=== PATIENT | female | born 1945 | race Caucasian/White ===

== ENCOUNTER 2017-09-15 22:48 | Observation (INO) ==
--- NOTE | 2017-09-15 23:28 | DR.SOBA ---
HPI - Time Seen Time seen: 23:05 - Primary Care Physician Primary Care Physician: NFD - Complaints Chief Complaint Doctors Comments: Patient admits to getting ready for bed and started having dyspnea. She also had chest pain but took a NTG and pain went away. She has a history of COPD. Denies fever, vomiting or diarrhea. Denies cigarettes. Chief Complaint:: EMS RESPONDED TO A CALL FOR DIFFICULTY BREATHING. UPON EMS ARRIVAL PT SATS 90% WITH HOME O2 INTACT, BREATH SOUNDS DIMINISHED. EMS ADMINISTERED NEB TREATMENT SATS UP TO 100%. PATIENT STATES, "I WAS GETTING READY FOR BED AND I GOT SHORT OF BREATH, THEN MY CHEST STARTED HURTING. I DIDN' T HURT ANYWHERE ELSE. I TOOK A NITROGLYCERIN AND MY CHEST PAIN WAS GONE BUT I WAS STILL SHORT OF BREATH. I WEAR HOME O2 BUT IT WASN'T HELPING." Self Treatment fo Chief Complaint: NTG, HOME O2 - Source History Provided: Patient, EMS - Mode of Arrival Mode of Arrival: EMS - Timing Onset of Chief Complaint: 09/15/17 PMH - PMH Past Medical History: Yes Past Medical History: Arthritis, Asthma, COPD, Coronary Artery Disease, GERD, Hypertension, [place] Past Medical History Comment: SLEEP APNEA. OSTEOARTHRITIS. RESTLESS LEG SYNDROME Past Surgical History: Yes Surgical History: Angioplasty/Stents, Hysterectomy, Ortho Surgery, Other - Family History History of Family Medical Conditions: Yes Family Medical History: Cancer, Coronary Artery Disease - Social History Type of Tobacco Use: None Alcohol Use: None Do you use any recreational Drugs:: No Lives With: Family Lives Where: Home - infectious screening Have you traveled outside the country in the last 6 months?: No Isolation: Standard ROS - Review of Systems Constitutional: negative: Diaphoresis Eyes: No Symptoms Reported ENTM: No Symptoms Reported Respiratoy: No Symptoms Reported Cardiovascular: No Symptoms Reported Gastrointestinal/Abdominal: No Symptoms Reported Genitourinary: No Symptoms Reported Neurological: No Symptoms Reported Musculoskeletal: No Symptoms Reported Integumentary: No Symptoms Reported Hematologic/Lymphatic: No Symptoms Reported Endocrine: No Symptoms Reported Psychiatric: No Symptoms Reported All Other Systems: Reviewed and Negative PE - General Limitations: No Limitations General Appearance: Alert, In No Apparent Distress - Head Head Exam: Normal Inspection, Atraumatic - Eyes Eye exam: Normal Appearance, PERRL, EOMI - ENT ENT Exam: Normal Exam - Neck Neck Exam: Normal Inspection, Full ROM - Chest Chest Inspection: Normal Inspection - Respiratory Respiratory Exam: Normal Lung Sounds Bilat Respiratory Exam: Bilateral Clear to Auscultation - Cardiovascular Cardiovascular Exam: Regular Rate, Normal Rhythm - Abdominal Exam Abdominal Exam: Normal Inspection, Normal Bowel Sounds Abdominal Tenderness: negative: RUQ, RLQ, LUQ, LLQ, Epigastrium, Suprapubic, Diffuse, Mild, Moderate, Severe, Other - Extremities Extremities Exam: Normal Inspection, Full ROM - Back Back Exam: Normal Inspection, Full ROM - Neurologic Neurological Exam: Alert, Oriented X3, CN II-XII Intact - Psychiatric Psychiatric Exam: Normal Affect, Normal Mood - Skin Skin Exam: Warm, Dry, Intact - Vital Signs Vitals: Temperature 97.5 F Pulse Rate 78 Respiratory Rate 18 Blood Pressure 190/91 O2 Sat by Pulse Oximetry 98 Course - Reevaluation 1st: Improved - Consultation Called: 01:50 (Dr Marquez agreed to admit for further management) ROR - Labs Reviewed Laboratory Results Reviewed?: Yes (D Dimer 538; Cardiacs negative) Result Diagrams: 09/15/17 23:07 09/15/17 23:07 - XRAY XRAY Interpreted by: Radiologist (Chest: The cardiopericardial silhouette is stably enlarged with mild pulmonary edema and bibasilar airspace opacities. No effusion or pneumothorax. The lungs are well inflated. Pulmonary vascularity is normal. Imaged osseous structures are intact. Soft tissues are unremarkable. Impression: Mild pulmonary edema in the setting of cardiomegaly with bibasilar airspace opacities, atelectasis vs infection. Correlate with serology and clinically for CHF exacerbation and pneumonia) - EKG Rate: 73 [place]: Normal Rhythm: NSR Block: None Hypertrophy: None ST: Normal - Labs Reviewed Laboratory: WBC 5.0 X10^3/uL (3.6-10.0) 09/15/17 23:07 RBC 5.14 X10^6/uL (3.5-5.4) 09/15/17 23:07 Hgb 14.1 g/dL (12.0-16.0) 09/15/17 23:07 Hct 42.2 % (36.0-47.0) 09/15/17 23:07 MCV 82.1 fL (80.0-100.0) 09/15/17 23:07 MCH 27.5 pg (27.0-34.0) 09/15/17 23:07 MCHC 33.4 g/dL (33.0-35.0) 09/15/17 23:07 RDW 15.1 % (11.6-16.5) 09/15/17 23:07 Plt Count 178 X10^3/uL (150.0-450.0) 09/15/17 23:07 MPV 8.5 fL (7.4-11.0) 09/15/17 23:07 Neut % (Auto) 56.4 % (42.0-75.0) 09/15/17 23:07 Lymph % (Auto) 32.6 % (21.0-51.0) 09/15/17 23:07 [place] % (Auto) 10.2 % (0.0-13.0) 09/15/17 23:07 Eos % (Auto) 0.0 % (0.9-2.9) L 09/15/17 23:07 Baso % (Auto) 0.8 % (0.2-1.0) 09/15/17 23:07 Neut # (Auto) 2.8 x10^3/uL (2.2-4.8) 09/15/17 23:07 Lymph # (Auto) 1.6 X10^3/uL (1.3-2.9) 09/15/17 23:07 [place] # (Auto) 0.5 x10^3/uL (0.3-0.8) 09/15/17 23:07 Eos # (Auto) 0.0 x10^3/uL (0.0-0.2) 09/15/17 23:07 Baso # (Auto) 0.0 X10^3/uL (0.0-0.1) 09/15/17 23:07 Absolute Nucleated RBC 0.2 /100WBC 09/15/17 23:07 INR Target Range - 09/15/17 23:07 INR 0.97 (0.8-1.3) 09/15/17 23:07 APTT 27.0 SECONDS (22.9-36.5) 09/15/17 23:07 PTT Comment - 09/15/17 23:07 D-Dimer 538 ng/mL (0-400) H* 09/15/17 23:07 Sodium 142 mmol/L (136-145) 09/15/17 23:07 Corrected Sodium 143 mmol/L (136-145) 09/15/17 23:07 Potassium 3.6 mmol/L (3.5-5.1) 09/15/17 23:07 Chloride 105 mmol/L (98-107) 09/15/17 23:07 Carbon Dioxide 31.6 mmol/L (21-32) 09/15/17 23:07 BUN 9 mg/dL (7-18) 09/15/17 23:07 Creatinine 0.91 mg/dL (0.55-1.02) 09/15/17 23:07 Est GFR (MDRD) Af Amer > 60 (>60) 09/15/17 23:07 Est GFR (MDRD) Non-Af > 60 (>60) 09/15/17 23:07 Glucose 145 mg/dL (65-99) H 09/15/17 23:07 Calcium 9.4 mg/dL (8.5-10.1) 09/15/17 23:07 Corrected Calcium TNP 09/15/17 23:07 Magnesium 1.9 mg/dL (1.7-2.9) 09/15/17 23:07 Total Bilirubin 0.40 mg/dL (0.2-1.0) 09/15/17 23:07 AST 18 Units/L (15-37) 09/15/17 23:07 ALT 23 Units/L (12-78) 09/15/17 23:07 Alkaline Phosphatase 60 Units/L (46-116) 09/15/17 23:07 Creatine Kinase 116 Units/L (26-192) 09/15/17 23:07 CK-MB (CK-2) 1.0 ng/mL (0-4.0) 09/15/17 23:07 CK/CKMB % Calc 0.9 % (<4) 09/15/17 23:07 Troponin I < 0.02 ng/mL (0-1.5) 09/15/17 23:07 B-Natriuretic Peptide 95.5 pg/mL (0-79) H 09/15/17 23:07 Total Protein 6.8 g/dL (6.4-8.2) 09/15/17 23:07 Albumin 3.4 g/dL (3.4-5.0) 09/15/17 23:07 Globulin 3.4 g/dL (2.5-4.5) 09/15/17 23:07 Albumin/Globulin Ratio 1.0 Ratio (1.1-2.1) L 09/15/17 23:07 - Diagnosis Discharge Problem: D-dimer, elevated Dyspnea Qualifiers: Dyspnea type: shortness of breath Qualified Code(s): R06.02 - Shortness of breath; R06.00 - Dyspnea, unspecified; R06.01 - Orthopnea CHF (congestive heart failure) Qualifiers: Heart failure type: unspecified Heart failure chronicity: chronic Qualified Code(s): I50.9 - Heart failure, unspecified - Discharge Plan Disposition: ADMITTED INPATIENT Condition: Stable - Follow ups/Referrals Follow ups/Referrals: NFD,None [Primary Care Provider] - 3 days - Instructions
[2017-09-15 23:31] LABS: BASOPHILS % (AUTO) 0.8 % (0.2-1.0); HEMATOCRIT 42.2 % (36.0-47.0); HEMOGLOBIN 14.1 g/dL (12.0-16.0); LYMPHOCYTES # (AUTO) 1.6 X10^3/uL (1.3-2.9); LYMPHOCYTES % (AUTO) 32.6 % (21.0-51.0); MEAN CORPUSCULAR HEMOGLOBIN 27.5 pg (27.0-34.0); MEAN CORPUSCULAR HGB CONC 33.4 g/dL (33.0-35.0); MEAN CORPUSCULAR VOLUME 82.1 fL (80.0-100.0); MEAN PLATELET VOLUME 8.5 fL (7.4-11.0); MONOCYTES # (AUTO) 0.5 x10^3/uL (0.3-0.8); MONOCYTES % (AUTO) 10.2 % (0.0-13.0); NEUTROPHILS # (AUTO) 2.8 x10^3/uL (2.2-4.8); NEUTROPHILS % (AUTO) 56.4 % (42.0-75.0); PLATELET COUNT 178 X10^3/uL (150.0-450.0); RED BLOOD COUNT 5.14 X10^6/uL (3.5-5.4); RED CELL DISTRIBUTION WIDTH 15.1 % (11.6-16.5)
--- NOTE | 2017-09-15 23:35 | RAD ---
CHEST RADIOGRAPHS PA AND LATERAL VIEWS CLINICAL HISTORY: 72-year-old female with shortness of breath. History of COPD and asthma. COMPARISON: Chest radiographs 07/22/2014. FINDINGS: The cardiopericardial silhouette is stably enlarged with mild pulmonary edema and bibasila r airspace opacities. No effusion or pneumothorax. The lungs are well inflated. Pulmonary vascularity is normal. Imaged osseous structures are intact. Soft tissues are unremarkable. IMPRESSION: Mild pulmonary edema in the setting of cardiomegaly with bibasilar airspace opacities, atelectasis ve rsus infection. Correlate with serology and clinically for CHF exacerbation and pneumonia. Reported By:
[2017-09-15 23:42] LABS: B-TYPE NATRIURETIC PEPTIDE 95.5 pg/mL (0-79)
[2017-09-15 23:46] LABS: BLOOD UREA NITROGEN 9 mg/dL (7-18); CALCIUM 9.4 mg/dL (8.5-10.1); CARBON DIOXIDE 31.6 mmol/L (21-32); CHLORIDE 105 mmol/L (98-107); COR NA(FOR HYPERGLY) 143 mmol/L (136-145); CREATININE 0.91 mg/dL (0.55-1.02); SODIUM 142 mmol/L (136-145); TROPONIN I < 0.02 ng/mL (0-1.5); eGFR NON BLACK RACES > 60 (>60)
[2017-09-15 23:49] LABS: ALANINE AMINOTRANSFERASE 23 Units/L (12-78); ALBUMIN 3.4 g/dL (3.4-5.0); ALKALINE PHOSPHATASE 60 Units/L (46-116); ASPARTATE AMINO TRANSFERASE 18 Units/L (15-37); CKMB % 0.9 % (<4); CREATINE KINASE 116 Units/L (26-192); MAGNESIUM 1.9 mg/dL (1.7-2.9); TOTAL PROTEIN 6.8 g/dL (6.4-8.2)
[2017-09-16] MEDS ORDERED: NS 100 ML IV 100 ML IV ONE (00:09)
[2017-09-16] MEDS ORDERED: MORPHINE SULFATE INJ 4 MG IVP PRN (02:41)
[2017-09-16] MEDS: NS 1000 ML 1,000 ML IV SCH ×2 (04:08→17:32)
[2017-09-16] MEDS: LASIX IVP SCH ×2 (04:08→09:30)
[2017-09-16 06:47] LABS: BASOPHILS % (AUTO) 0.8 % (0.2-1.0); HEMATOCRIT 40.3 % (36.0-47.0); HEMOGLOBIN 13.4 g/dL (12.0-16.0); LYMPHOCYTES # (AUTO) 1.2 X10^3/uL (1.3-2.9); MEAN CORPUSCULAR HEMOGLOBIN 27.4 pg (27.0-34.0); MEAN CORPUSCULAR HGB CONC 33.2 g/dL (33.0-35.0); MEAN CORPUSCULAR VOLUME 82.4 fL (80.0-100.0); MEAN PLATELET VOLUME 8.5 fL (7.4-11.0); MONOCYTES # (AUTO) 0.5 x10^3/uL (0.3-0.8); MONOCYTES % (AUTO) 11.2 % (0.0-13.0); NEUTROPHILS # (AUTO) 2.7 x10^3/uL (2.2-4.8); PLATELET COUNT 173 X10^3/uL (150.0-450.0); RED BLOOD COUNT 4.89 X10^6/uL (3.5-5.4); RED CELL DISTRIBUTION WIDTH 15.3 % (11.6-16.5); WHITE BLOOD COUNT 4.4 X10^3/uL (3.6-10.0)
[2017-09-16 06:47] LABS: BILIRUBIN,URINE NEGATIVE (NEGATIVE); BLOOD/HEMOGLOBIN,URINE NEGATIVE (NEGATIVE); GLUCOSE, URINE NEGATIVE (NEGATIVE); KETONES,URINE NEGATIVE (NEGATIVE); LEUKOCYTE ESTERASE ,URINE 2+ (NEGATIVE); NITRITES,URINE NEGATIVE (NEGATIVE); PH,URINE 6.5 (5.0 - 8.0); PROTEIN,URINE NEGATIVE (NEGATIVE); UROBILINOGEN,URINE NORMAL (NORMAL)
[2017-09-16 06:58] LABS: APPEARANCE,URINE CLEAR (CLEAR); COLOR,URINE YELLOW (YELLOW); RBC,URINE 0-2 /HPF (NONE SEEN)
[2017-09-16 06:59] LABS: BACTERIA,URINE TRACE /HPF (NEGATIVE); SQUAMOUS EPITHELIAL CELL,UR FEW /HPF (NEGATIVE)
[2017-09-16 07:33] LABS: CREATINE KINASE 113 Units/L (26-192); CREATINE KINASE MB 1.1 ng/mL (0-4.0); TROPONIN I < 0.02 ng/mL (0-1.5)
[2017-09-16] MEDS ORDERED: ZESTRIL TAB 10 MG PO SCH (09:00)
[2017-09-16] MEDS ORDERED: NITROSTAT SL PRN (09:36)
[2017-09-16] MEDS ORDERED: CITALOPRAM 40 MG PO SCH (09:45)
[2017-09-16] MEDS ORDERED: ALENDRONATE 70 MG PO SCH (09:45)
[2017-09-16] MEDS ORDERED: [UNRECOGNIZED DRUG - OTHER] PO SCH (09:45)
[2017-09-16] MEDS ORDERED: ASPIRIN PO SCH (09:45)
[2017-09-16] MEDS ORDERED: RANOLAZINE 1000 MG PO SCH (09:45)
[2017-09-16] MEDS ORDERED: LASIX PO SCH (10:00)
[2017-09-16] MEDS ORDERED: REQUIP PO PRN (10:01)
[2017-09-16] MEDS: ECOTRIN TAB 325 MG PO SCH (11:30)
[2017-09-16] MEDS: PROTONIX TAB 40 MG PO SCH ×2 (11:30→16:46)
[2017-09-16] MEDS: APRESOLINE TAB 25 MG PO SCH ×3 (11:30→21:09)
[2017-09-16] MEDS: COREG TAB 25 MG PO SCH ×2 (11:30→21:07)
[2017-09-16] MEDS: CELEXA PO SCH (11:30)
[2017-09-16] MEDS: COZAAR PO SCH (11:30)
[2017-09-16] MEDS: COLACE CAP 100 MG PO SCH ×2 (11:30→21:07)
[2017-09-16] MEDS: LYRICA CAP 100 MG PO SCH ×2 (11:30→21:06)
[2017-09-16] MEDS: PLAQUENIL PO SCH ×2 (11:30→21:07)
[2017-09-16 12:22] LABS: CKMB % 1.3 % (<4); CREATINE KINASE 123 Units/L (26-192); CREATINE KINASE MB 1.6 ng/mL (0-4.0); TROPONIN I < 0.02 ng/mL (0-1.5)
[2017-09-16] MEDS: LASIX PO SCH (12:54)
[2017-09-16] MEDS: RANEXA PO SCH ×2 (12:55→21:07)
[2017-09-16] MEDS: LIPITOR TAB 20 MG PO SCH (12:55)
[2017-09-16] MEDS: NORCO 5/325 MG TAB PO PRN ×2 (12:58→21:10)
[2017-09-16 15:43] VITALS: BMI 38.4
[2017-09-16] MEDS ORDERED: ROPINIROLE 0.5 MG PO SCH (21:00)
[2017-09-17] MEDS: APRESOLINE TAB 25 MG PO SCH (05:10)
[2017-09-17] MEDS: NS 1000 ML 1,000 ML IV SCH (05:10)
[2017-09-17] MEDS: PROTONIX TAB 40 MG PO SCH ×2 (05:46→11:56)
[2017-09-17] MEDS: COREG TAB 25 MG PO SCH (08:45)
[2017-09-17] MEDS: PLAQUENIL PO SCH (08:46)
[2017-09-17] MEDS: CELEXA PO SCH (08:46)
[2017-09-17] MEDS: LASIX PO SCH (08:46)
[2017-09-17] MEDS: LYRICA CAP 100 MG PO SCH (08:46)
[2017-09-17] MEDS: ECOTRIN TAB 325 MG PO SCH (08:47)
[2017-09-17] MEDS: COLACE CAP 100 MG PO SCH (08:47)
[2017-09-17] MEDS: LIPITOR TAB 20 MG PO SCH (08:47)
[2017-09-17] MEDS: RANEXA PO SCH (08:47)
[2017-09-17] MEDS: COZAAR PO SCH (08:48)
[2017-09-17] MEDS: NORCO 5/325 MG TAB PO PRN (11:57)
[2017-09-17 12:27] VITALS: BP 112/59
== END 2017-09-17 14:00 | disposition home or self-care (01) ==
LOC: MED/SURG 22:50 → ER 22:50 → MED/SURG 09-16 03:42
PROVIDERS: ADMIT Obstetrics & Gynecology Obstetrics; ATTEND Obstetrics & Gynecology Obstetrics
DX: M13.89 Other specified arthritis, multiple sites; I10 Essential (primary) hypertension; G25.81 Restless legs syndrome; K21.9 Gastro-esophageal reflux disease without esophagitis; I50.9 Heart failure, unspecified; R06.02 Shortness of breath; J44.9 Chronic obstructive pulmonary disease, unspecified; R07.89 Other chest pain; I25.10 Atherosclerotic heart disease of native coronary artery without angina pectoris; G47.33 Obstructive sleep apnea (adult) (pediatric); R26.89 Other abnormalities of gait and mobility; I21.29 ST elevation (STEMI) myocardial infarction involving other sites; J45.998 Other asthma
CPT/HCPCS: 36415; 71020; 71046; 80053; 81001; 82550; 82553; 83735; 83880; 84484; 85025; 85378; 85610; 85730; 93005; 93010; 94760; 96365; 97162; 97167; 99284; A4216; A4222; G0378; J1940; J2270; J7030; J7050

== ENCOUNTER 2017-10-26 03:13 | Observation (INO) ==
[2017-10-26] MEDS ORDERED: LASIX IVP ONE ×2 (03:34→03:37)
[2017-10-26] MEDS ORDERED: CATAPRES TAB 0.2 MG ONE (03:35)
[2017-10-26] MEDS ORDERED: ASPIRIN PO ONE (03:36)
[2017-10-26] MEDS ORDERED: CATAPRES TAB 0.2 MG PO ONE (03:37)
[2017-10-26] MEDS ORDERED: ASPIRIN 81 MG CHEWTAB ONE (03:38)
[2017-10-26] MEDS ORDERED: NITRO-BID OINT 2% UD (E.R. USE ONLY) TD ONE (03:38)
--- NOTE | 2017-10-26 03:42 | DR.CP ---
HPI - Time Seen Time seen: 03:39 - PCP Primary Care Physician: ERUM - Complaint Chief Complaint Doctor Comments: Patient is complaining of xiphoid chest pain that started about five hours ago with pressure in the center of her chest that is non-radiating with SOB, nausea and swelling of her legs and feet. Patient states she has taken nitroglycerin x3 at home without improvement. States she has COPD and is on two liters of oxygen at home. She has a history of Congestive heart Failure and states she sees Dr. Miller in [place]. states her pain is 10 of 10. She denies any recent trauma.. state she has not had an aspirin today. She is a patient of Dr. Danielson. Chief Complaint:: PATIENT BROUGHT IN BY EMS BY STRETCHER C/O CHEST PAIN PRESSURE THAT STARTED ABOUT 2200 LASTNIGHT. PATIENT ALERT AND ORIENTED. " Self Treatment fo Chief Complaint: 3 NITRO STARTING AT 2230 AND LAST ONE AT 2300 - Reviewed Nurses Notes Review: Yes - Source History Provided: Patient, EMS - Mode of Arrival Mode of Arrival: Stretcher - Timing Onset of Chief Complaint: 10/25/17 Came on: Gradually Pain: Present Now - Duration Duration: Constant How lon Duration: Hours - Location Location of Chest Pain: Chest Chest Pain Radiation Location: None - Context Onset: At rest Cardiac Risk Factors: HTN PE Risk Factors: None History of: Similar pain in the past Prehospital Care: Oxygen, IV, SL Nitro - Quality Quality: Pressure like - Severity Severity: Moderate - Modifying Factors Worsens: Exertion Impoves: Nothing - Associated Signs and Symptoms Associated Signs and Symptoms: Shortness of Breath, Nausea/Vomiting PMH - PMH Past Medical History: Yes Past Medical History: Arthritis, Asthma, COPD, Coronary Artery Disease, GERD, Hypertension, [place] Past Surgical History: Yes Surgical History: Hysterectomy, Ortho Surgery - Family History History of Family Medical Conditions: Yes Family Medical History: Cancer, Coronary Artery Disease, Hypertension - Social History Alcohol Use: None Do you use any recreational Drugs:: No - infectious screening Have you traveled outside the country in the last 6 months?: No ROS - Review of Systems Constitutional: No Symptoms Reported Eyes: No Symptoms Reported. negative: See HPI, Eye Pain, Blurred Vision, Tearing, Discharge, Photophobia, Diplopia, Other ENTM: No Symptoms Reported Respiratoy: No Symptoms Reported, Short of Breath, Wheezing Cardiovascular: No Symptoms Reported, Chest Pain, Edema Gastrointestinal/Abdominal: No Symptoms Reported, Nausea, Vomiting Genitourinary: No Symptoms Reported. negative: See HPI, Discharge, Dysuria, Frequency, Hematuria, Pain, Bleeding, Other Neurological: No Symptoms Reported Musculoskeletal: No Symptoms Reported Integumentary: No Symptoms Reported. negative: See HPI, Change in Color, Change in Hair/Nails, Dryness, Lesions, Lumps, Rash, Itching, Wound, Bruises, Juandice, Other Hematologic/Lymphatic: No Symptoms Reported. negative: See HPI, Anemia, Blood Clots, Easy Bleeding, Easy Bruising, Swollen Glands, Lymphadenopathy, Other Endocrine: No Symptoms Reported Psychiatric: No Symptoms Reported. negative: See HPI, Anxiety, Depression, Hallucinations, Excessive crying, Suicidal, Other PE - General Limitations: No Limitations General Appearance: Alert, In Distress (moderate) - Head Head Exam: Normal Inspection, Atraumatic, Normocephalic - Eyes Eye exam: Normal Appearance, PERRL, EOMI. negative: Scleral Icterus, Conjunctival Injection, Nystagmus, Miosis, Mydrasis, Periorbital Swelling, Periorbital Tenderness, Other - ENT ENT Exam: Normal Exam, Normal Oropharynx, Normal External Ear Exam, Mucous Membranes Moist, TM's Normal Bilaterally - Chest Chest Inspection: Normal Inspection, Symmetric Chest Wall Rise - Respiratory Respiratory Exam: Normal Lung Sounds Bilat, Prolonged Expiratory Phase Respiratory Exam: Bilateral Wheezing, Bilateral Rales - Cardiovascular Cardiovascular Exam: Regular Rate, Normal Rhythm, Normal Heart Sounds, Systolic Murmur Pulse: Normal Edema: 2, Lower, Extremity - Abdominal Exam Abdominal Exam: Normal Inspection, Normal Bowel Sounds, Soft. negative: Distention, Tenderness, Guarding, Rebound, Rigidity, Dimnished Bowel Sounds, Hyperactive Bowel Sounds, Hypoactive Bowel Sounds, Organomegaly, Trauma, Incision, Ascites, Mass, Bruit, Pulsatile Mass, Hernia, Other Abdominal Tenderness: negative: RUQ, RLQ, LUQ, LLQ, Epigastrium, Suprapubic, Diffuse, Mild, Moderate, Severe, Other - Extremities Extremities Exam: Normal Inspection, Full ROM, Normal Capillary Refill, Edema. negative: Tenderness, Joint Swelling, Calf Tenderness, Other - Back Back Exam: Normal Inspection, Full ROM - Neurologic Neurological Exam: Alert, Oriented X3, CN II-XII Intact, Reflexes Normal. negative: Normal Gait (gait not tested) - Psychiatric Psychiatric Exam: Normal Affect, Normal Mood - Skin Skin Exam: Warm, Dry, Intact, Normal Color - Vitals Vitals: Temperature 98.2 F Pulse Rate [Left Brachial] 61 Pulse Rate 62 Respiratory Rate 20 Blood Pressure [Left Arm] 134/61 Blood Pressure 226/91 O2 Sat by Pulse Oximetry 95 Course - Reevaluation 1st: Improved - Consultation Called: 05:21 Call Returned: 05:21 (Dr. Hewitt to admit) - Education/Counseling Education/Counseling: Patient, Family Educated On: Treatment, Diagnosis, Needs for Follow Up ROR - Labs Reviewed Laboratory Results Reviewed?: Yes (All labs and x-ray results reviewed and discussed with patient) Result Diagrams: 10/26/17 03:30 10/26/17 03:30 - XRAY XRAY Interpreted by: Radiologist (CXR: Stable chest negative for pathology) - Labs Reviewed Laboratory: WBC 5.5 X10^3/uL (3.6-10.0) 10/26/17 03:30 RBC 4.94 X10^6/uL (3.5-5.4) 10/26/17 03:30 Hgb 13.8 g/dL (12.0-16.0) 10/26/17 03:30 Hct 41.0 % (36.0-47.0) 10/26/17 03:30 MCV 83.1 fL (80.0-100.0) 10/26/17 03:30 MCH 27.9 pg (27.0-34.0) 10/26/17 03:30 MCHC 33.6 g/dL (33.0-35.0) 10/26/17 03:30 RDW 15.3 % (11.6-16.5) 10/26/17 03:30 Plt Count 165 X10^3/uL (150.0-450.0) 10/26/17 03:30 MPV 8.2 fL (7.4-11.0) 10/26/17 03:30 Neut % (Auto) 68.5 % (42.0-75.0) 10/26/17 03:30 Lymph % (Auto) 22.6 % (21.0-51.0) 10/26/17 03:30 [place] % (Auto) 8.3 % (0.0-13.0) 10/26/17 03:30 Eos % (Auto) 0.0 % (0.9-2.9) L 10/26/17 03:30 Baso % (Auto) 0.6 % (0.2-1.0) 10/26/17 03:30 Neut # (Auto) 3.8 x10^3/uL (2.2-4.8) 10/26/17 03:30 Lymph # (Auto) 1.2 X10^3/uL (1.3-2.9) L 10/26/17 03:30 [place] # (Auto) 0.5 x10^3/uL (0.3-0.8) 10/26/17 03:30 Eos # (Auto) 0.0 x10^3/uL (0.0-0.2) 10/26/17 03:30 Baso # (Auto) 0.0 X10^3/uL (0.0-0.1) 10/26/17 03:30 Absolute Nucleated RBC 0.1 /100WBC 10/26/17 03:30 INR Target Range - 10/26/17 03:30 INR 0.97 (0.8-1.3) 10/26/17 03:30 APTT 28.4 SECONDS (22.9-36.5) 10/26/17 03:30 PTT Comment - 10/26/17 03:30 D-Dimer 215 ng/mL (0-400) 10/26/17 03:30 Sodium 142 mmol/L (136-145) 10/26/17 03:30 Corrected Sodium 143 mmol/L (136-145) 10/26/17 03:30 Potassium 3.8 mmol/L (3.5-5.1) 10/26/17 03:30 Chloride 104 mmol/L (98-107) 10/26/17 03:30 Carbon Dioxide 32.4 mmol/L (21-32) H 10/26/17 03:30 BUN 18 mg/dL (7-18) 10/26/17 03:30 Creatinine 0.91 mg/dL (0.55-1.02) 10/26/17 03:30 Est GFR (MDRD) Af Amer > 60 (>60) 10/26/17 03:30 Est GFR (MDRD) Non-Af > 60 (>60) 10/26/17 03:30 Glucose 136 mg/dL (65-99) H 10/26/17 03:30 Calcium 9.1 mg/dL (8.5-10.1) 10/26/17 03:30 Corrected Calcium TNP 10/26/17 03:30 Magnesium 1.9 mg/dL (1.7-2.9) 10/26/17 03:30 Total Bilirubin 0.30 mg/dL (0.2-1.0) 10/26/17 03:30 AST 18 Units/L (15-37) 10/26/17 03:30 ALT 25 Units/L (12-78) 10/26/17 03:30 Alkaline Phosphatase 59 Units/L (46-116) 10/26/17 03:30 Creatine Kinase 116 Units/L (26-192) 10/26/17 03:30 CK-MB (CK-2) 1.6 ng/mL (0-4.0) 10/26/17 03:30 CK/CKMB % Calc 1.4 % (<4) 10/26/17 03:30 Troponin I < 0.02 ng/mL (0-1.5) 10/26/17 03:30 B-Natriuretic Peptide 54.8 pg/mL (0-79) 10/26/17 03:30 Total Protein 7.0 g/dL (6.4-8.2) 10/26/17 03:30 Albumin 3.6 g/dL (3.4-5.0) 10/26/17 03:30 Globulin 3.4 g/dL (2.5-4.5) 10/26/17 03:30 Albumin/Globulin Ratio 1.1 Ratio (1.1-2.1) 10/26/17 03:30 - Diagnosis Discharge Problem: Chest pain, rule out acute myocardial infarction, COPD exacerbation, CHF ( congestive heart failure), Accelerated hypertension, Hyperglycemia - Discharge Plan Disposition: ADMITTED INPATIENT Condition: Stable - Follow ups/Referrals Follow ups/Referrals: JACKSON DANIELSON [Primary Care Provider] - 3 days - Instructions
[2017-10-26] MEDS: ASPIRIN 81 MG CHEWTAB PO SCH ×2 (03:47→08:21)
[2017-10-26] MEDS ORDERED: NITRO-BID OINT 2% Multi-Dose tube ONE (03:48)
[2017-10-26 04:00] LABS: BASOPHILS % (AUTO) 0.6 % (0.2-1.0); HEMOGLOBIN 13.8 g/dL (12.0-16.0); LYMPHOCYTES # (AUTO) 1.2 X10^3/uL (1.3-2.9); LYMPHOCYTES % (AUTO) 22.6 % (21.0-51.0); MEAN CORPUSCULAR HEMOGLOBIN 27.9 pg (27.0-34.0); MEAN CORPUSCULAR HGB CONC 33.6 g/dL (33.0-35.0); MEAN CORPUSCULAR VOLUME 83.1 fL (80.0-100.0); MEAN PLATELET VOLUME 8.2 fL (7.4-11.0); MONOCYTES # (AUTO) 0.5 x10^3/uL (0.3-0.8); MONOCYTES % (AUTO) 8.3 % (0.0-13.0); NEUTROPHILS # (AUTO) 3.8 x10^3/uL (2.2-4.8); NEUTROPHILS % (AUTO) 68.5 % (42.0-75.0); PLATELET COUNT 165 X10^3/uL (150.0-450.0); RED BLOOD COUNT 4.94 X10^6/uL (3.5-5.4); RED CELL DISTRIBUTION WIDTH 15.3 % (11.6-16.5); WHITE BLOOD COUNT 5.5 X10^3/uL (3.6-10.0)
--- NOTE | 2017-10-26 04:15 | RAD ---
Chest single view Indication: Chest pain Comparison September 29, 2017 Findings: Lung volumes remain shallow. There is no focal infiltrate, effusion or pneumothorax. The ce ntral venous structures appear similar to prior study. The skeleton is unchanged. Impression: Stable chest negative for active pathology Reported By:
[2017-10-26 04:16] LABS: B-TYPE NATRIURETIC PEPTIDE 54.8 pg/mL (0-79)
[2017-10-26 04:18] LABS: BLOOD UREA NITROGEN 18 mg/dL (7-18); CALCIUM 9.1 mg/dL (8.5-10.1); CARBON DIOXIDE 32.4 mmol/L (21-32); CHLORIDE 104 mmol/L (98-107); COR NA(FOR HYPERGLY) 143 mmol/L (136-145); CREATININE 0.91 mg/dL (0.55-1.02); SODIUM 142 mmol/L (136-145); TROPONIN I < 0.02 ng/mL (0-1.5); eGFR NON BLACK RACES > 60 (>60)
[2017-10-26 04:33] LABS: ALANINE AMINOTRANSFERASE 25 Units/L (12-78); ALBUMIN 3.6 g/dL (3.4-5.0); ALKALINE PHOSPHATASE 59 Units/L (46-116); ASPARTATE AMINO TRANSFERASE 18 Units/L (15-37); CKMB % 1.4 % (<4); CREATINE KINASE 116 Units/L (26-192); CREATINE KINASE MB 1.6 ng/mL (0-4.0); MAGNESIUM 1.9 mg/dL (1.7-2.9)
[2017-10-26] MEDS ORDERED: MORPHINE SULFATE INJ 2 MG INJ IVP ONE (05:14)
[2017-10-26] MEDS ORDERED: MORPHINE SULFATE INJ 2 MG INJ ONE (05:33)
[2017-10-26 07:36] VITALS: BMI 37.8
[2017-10-26] MEDS: COZAAR PO SCH (08:21)
[2017-10-26] MEDS: LIPITOR TAB 20 MG PO SCH (08:21)
[2017-10-26] MEDS: LASIX PO SCH (08:21)
[2017-10-26] MEDS ORDERED: [UNRECOGNIZED DRUG - OTHER] PO SCH (09:00)
[2017-10-26] MEDS ORDERED: ASPIRIN PO SCH (09:00)
[2017-10-26] MEDS ORDERED: PATIENT'S HOME MEDICATION (Budesonide-Formoterol 2 PUFF) IN SCH (09:00)
[2017-10-26] MEDS ORDERED: PROTONIX INJ 40 MG VIAL IVP SCH (09:00)
[2017-10-26 10:02] LABS: CKMB % 1.3 % (<4); CREATINE KINASE 96 Units/L (26-192); CREATINE KINASE MB 1.2 ng/mL (0-4.0); TROPONIN I < 0.02 ng/mL (0-1.5)
[2017-10-26] MEDS: NORCO 5/325 MG TAB PO SCH ×2 (11:15→20:19)
[2017-10-26] MEDS ORDERED: NORVASC TAB 5 MG PO SCH (13:00)
[2017-10-26] MEDS: PULMICORT NEB TX 0.5 MG NEB SCH ×3 (16:10→20:32)
[2017-10-26 16:15] LABS: CKMB % 1.3 % (<4); CREATINE KINASE 103 Units/L (26-192); CREATINE KINASE MB 1.3 ng/mL (0-4.0); TROPONIN I < 0.02 ng/mL (0-1.5)
[2017-10-26] MEDS: VALIUM PO PRN (16:34)
[2017-10-26] MEDS: RANEXA PO SCH (16:34)
[2017-10-26] MEDS: APRESOLINE TAB 25 MG PO SCH ×2 (16:35→22:09)
[2017-10-26] MEDS: PROVENTIL NEB TX 0.083% 2.5MG/ 3ML NEB SCH ×2 (16:55→20:32)
[2017-10-26] MEDS: MILK OF MAGNESIA PO SCH (20:15)
[2017-10-26] MEDS: DESYREL PO SCH (20:17)
[2017-10-26] MEDS: ELAVIL PO SCH (20:17)
[2017-10-26] MEDS: LYRICA CAP 100 MG PO SCH (20:17)
[2017-10-26] MEDS: FLEXERIL TAB 10 MG PO SCH (20:17)
[2017-10-26] MEDS: COLACE CAP 100 MG PO SCH (20:17)
[2017-10-26] MEDS: PLAQUENIL PO SCH (20:18)
[2017-10-26] MEDS: COREG TAB 6.25 MG PO SCH (20:19)
--- NOTE | 2017-10-26 21:49 | DR.H&P ---
H&P - History & Physical for Day of: H&P Date: 10/26/17 - Chief Complaint Chief Complaint: chest pain - History of Present Illness History of Present Illness: is a 72 year old patient of who presented to the ER with complaints of xiphoid chest pain that started about five hours prior to arrival. She describes pain as pressure in the center of her chest that is non-radiating. Associated symptoms include: SOB, nausea and swelling of her legs and feet. Patient states she has taken nitroglycerin x3 at home without improvement. States she has COPD and is on two liters of oxygen at home. She reports a history of Congestive Heart Failure and states she sees Dr. Miller in [place]. Upon assessment, lungs noted with bilateral wheezing bilateral and rales throughout. On arrival, vitals were 98.2-62-20-100% -226/91. Labs were obtained. Cardiac enzymes and EKGs within normal limits. Patient received Morphine 2mg IV X 1, Lasix 40mg IVP X 1, and catapress 0.2mg po x 1. Patient was admitted for continued observation and placed on continuous quality assurance monitor chassis with supplemental oxygen. We planned to obtain serial cardiac enzymes and EKGs. - Past Medical History Past Medical History: Arthritis, Asthma, COPD, Coronary Artery Disease, GERD, Hypertension, [place] - Past Surgical History Surgical History: Hysterectomy, Ortho Surgery, Other - Family History Family Medical History: Cancer, Coronary Artery Disease, Hypertension - Social History Does patient currently use any type of tobacco product: No Have you used tobacco products in the last 12 months: No Type of Tobacco Use: Cigarettes How many years tobacco product used: 20 Alcohol Use: None Drug Use: None - Medications Home Medications: No Known Drug Allergies Allergy (Verified 09/29/17 19:30) CONTINUE taking the following medications amitriptyline 10 mg PO HS 10/26/17 [History] amlodipine 5 mg PO DAILY 10/26/17 [History] azelastine 1 spray INTRANASAL Q8H 10/26/17 [History] cyclobenzaprine 10 mg PO BID 10/26/17 [History] hydralazine 12.5 mg PO TID 10/26/17 [History] hydrocodone-acetaminophen 5 - 325 mg PO BID 10/26/17 [History] omeprazole 20 mg PO DAILY 10/26/17 [History] promethazine 25 mg PO Q6H 10/26/17 [History] ranolazine [Ranexa] 1,000 mg PO DAILY 10/26/17 [History] trazodone 50 mg PO HS 10/26/17 [History] - Physical Exam Vital Signs: Temperature 96.5 F Pulse Rate [Left Brachial] 53 Pulse Rate 56 Respiratory Rate 22 Blood Pressure [Left Arm] 131/62 Blood Pressure 226/91 O2 Sat by Pulse Oximetry 99 - Allergies Allergies/Adverse Reactions: Allergies Allergy/AdvReac Type Severity Reaction Status Date / Time No Known Drug Allergies Allergy Verified 09/29/17 19:30
[2017-10-27] MEDS: VALIUM PO PRN ×2 (00:19→22:52)
[2017-10-27] MEDS: APRESOLINE TAB 25 MG PO SCH ×4 (05:07→23:50)
[2017-10-27 05:17] LABS: BASOPHILS % (AUTO) 0.6 % (0.2-1.0); EOSINOPHILS % (AUTO) 0.3 % (0.9-2.9); HEMATOCRIT 36.9 % (36.0-47.0); HEMOGLOBIN 12.6 g/dL (12.0-16.0); LYMPHOCYTES # (AUTO) 1.3 X10^3/uL (1.3-2.9); LYMPHOCYTES % (AUTO) 26.3 % (21.0-51.0); MEAN CORPUSCULAR HEMOGLOBIN 28.2 pg (27.0-34.0); MEAN CORPUSCULAR HGB CONC 34.1 g/dL (33.0-35.0); MEAN CORPUSCULAR VOLUME 82.6 fL (80.0-100.0); MEAN PLATELET VOLUME 8.2 fL (7.4-11.0); MONOCYTES # (AUTO) 0.5 x10^3/uL (0.3-0.8); MONOCYTES % (AUTO) 10.6 % (0.0-13.0); NEUTROPHILS # (AUTO) 3.1 x10^3/uL (2.2-4.8); NEUTROPHILS % (AUTO) 62.2 % (42.0-75.0); PLATELET COUNT 171 X10^3/uL (150.0-450.0); RED BLOOD COUNT 4.47 X10^6/uL (3.5-5.4); RED CELL DISTRIBUTION WIDTH 15.5 % (11.6-16.5); WHITE BLOOD COUNT 4.9 X10^3/uL (3.6-10.0)
[2017-10-27 05:26] LABS: ALANINE AMINOTRANSFERASE 24 Units/L (12-78); ALBUMIN 3.2 g/dL (3.4-5.0); ALKALINE PHOSPHATASE 50 Units/L (46-116); ASPARTATE AMINO TRANSFERASE 18 Units/L (15-37); BLOOD UREA NITROGEN 21 mg/dL (7-18); CALCIUM 8.6 mg/dL (8.5-10.1); CARBON DIOXIDE 34.7 mmol/L (21-32); CHLORIDE 104 mmol/L (98-107); CHOLESTEROL 177 mg/dL (0-200); COR CA(FOR HYPOALB) 9.2 mg/dL (8.5-10.1); COR NA(FOR HYPERGLY) 145 mmol/L (136-145); HDL CHOLESTEROL 60 mg/dL (40-60); SODIUM 144 mmol/L (136-145); TOTAL PROTEIN 6.2 g/dL (6.4-8.2); TRIGLYCERIDES 75 mg/dL (0-150); eGFR NON BLACK RACES > 60 (>60)
[2017-10-27] MEDS: NORCO 5/325 MG TAB PO SCH ×2 (08:55→20:38)
[2017-10-27] MEDS: MILK OF MAGNESIA PO SCH ×2 (08:55→20:37)
[2017-10-27] MEDS: PROTONIX TAB 40 MG PO SCH (08:55)
[2017-10-27] MEDS: FLEXERIL TAB 10 MG PO SCH ×2 (08:56→20:46)
[2017-10-27] MEDS: LASIX PO SCH ×2 (08:56→11:27)
[2017-10-27] MEDS: LIPITOR TAB 20 MG PO SCH (08:57)
[2017-10-27] MEDS: PLAQUENIL PO SCH ×2 (08:57→20:46)
[2017-10-27] MEDS: RANEXA PO SCH (08:57)
[2017-10-27] MEDS: ASPIRIN 81 MG CHEWTAB PO SCH (08:57)
[2017-10-27] MEDS: COZAAR PO SCH (08:57)
[2017-10-27] MEDS: LYRICA CAP 100 MG PO SCH ×2 (08:57→20:39)
[2017-10-27] MEDS: COREG TAB 6.25 MG PO SCH ×2 (08:58→20:39)
[2017-10-27] MEDS ORDERED: NORCO 5/325 MG TAB PO PRN (10:08)
[2017-10-27] MEDS ORDERED: PATIENT'S HOME MEDICATION (Albuterol Sulfate 2 PUFF) IN PRN (10:11)
[2017-10-27] MEDS ORDERED: ALENDRONATE 70 MG PO SCH (10:15)
[2017-10-27] MEDS ORDERED: FLEXERIL TAB 10 MG PO SCH (11:00)
[2017-10-27] MEDS ORDERED: APRESOLINE TAB 25 MG PO SCH (11:00)
[2017-10-27] MEDS ORDERED: COZAAR PO SCH (11:00)
[2017-10-27] MEDS ORDERED: PriLOSEC PO SCH (11:00)
[2017-10-27] MEDS ORDERED: RANEXA PO SCH (11:00)
[2017-10-27] MEDS ORDERED: COREG TAB 3.125 MG PO SCH (11:00)
[2017-10-27] MEDS ORDERED: PLAQUENIL PO SCH (11:00)
[2017-10-27] MEDS ORDERED: ASTELIN NASAL SPRAY ENOSTRIL ONE ×2 (11:22→11:23)
[2017-10-27] MEDS: NORVASC TAB 5 MG PO SCH (11:27)
[2017-10-27] MEDS: ASTELIN NASAL SPRAY ENOSTRIL SCH ×2 (11:27→17:35)
[2017-10-27] MEDS: PHENERGAN TAB 25 MG PO SCH ×3 (11:28→22:38)
[2017-10-27] MEDS ORDERED: PROVENTIL NEB TX 0.083% 2.5MG/ 3ML NEB SCH (13:00)
[2017-10-27] MEDS: COLACE CAP 100 MG PO SCH (20:37)
[2017-10-27] MEDS: DESYREL PO SCH (20:37)
[2017-10-27] MEDS: ELAVIL PO SCH (20:40)
[2017-10-27] MEDS ORDERED: ELAVIL PO SCH (21:00)
[2017-10-28] MEDS: ASTELIN NASAL SPRAY ENOSTRIL SCH ×2 (05:00→10:53)
[2017-10-28] MEDS: APRESOLINE TAB 25 MG PO SCH (05:01)
[2017-10-28] MEDS: PHENERGAN TAB 25 MG PO SCH (05:01)
--- NOTE | 2017-10-28 06:04 | RAD ---
HISTORY: Congestive heart failure Study: Chest PA and lateral Comparison: None Findings: The heart is enlarged. No congestive heart failure is noted. No acute alveolar infiltrates or pleural effusions are identified. The bony thorax is unremarkable. IMPRESSION: Moderate cardiomegaly without congestive heart failure No infiltrates Reported By:
[2017-10-28] MEDS: MILK OF MAGNESIA PO SCH (08:06)
[2017-10-28] MEDS: ASPIRIN 81 MG CHEWTAB PO SCH (08:07)
[2017-10-28] MEDS: NORCO 5/325 MG TAB PO SCH (08:07)
[2017-10-28] MEDS: PROTONIX TAB 40 MG PO SCH (08:08)
[2017-10-28] MEDS: FLEXERIL TAB 10 MG PO SCH (08:09)
[2017-10-28] MEDS: COREG TAB 6.25 MG PO SCH (08:09)
[2017-10-28] MEDS: NORVASC TAB 5 MG PO SCH (08:09)
[2017-10-28] MEDS: LYRICA CAP 100 MG PO SCH (08:10)
[2017-10-28] MEDS: LASIX PO SCH (08:14)
[2017-10-28] MEDS: PLAQUENIL PO SCH (08:17)
[2017-10-28] MEDS: COZAAR PO SCH (08:19)
[2017-10-28] MEDS: LIPITOR TAB 20 MG PO SCH (08:19)
[2017-10-28] MEDS: RANEXA PO SCH (08:24)
[2017-10-28] MEDS ORDERED: ASTELIN NASAL SPRAY ENOSTRIL ONE (10:50)
[2017-10-28 12:24] VITALS: BP 116/58
[2017-10-31] MEDS ORDERED: ALENDRONATE 70 MG PO SCH (14:00)
== END 2017-10-28 13:00 | disposition home or self-care (01) ==
LOC: ER 03:13 → MED/SURG 03:13
PROVIDERS: ADMIT Internal Medicine; ATTEND Obstetrics & Gynecology Obstetrics
DX: R07.2 Precordial pain; Z99.81 Dependence on supplemental oxygen; E11.65 Type 2 diabetes mellitus with hyperglycemia; J44.1 Chronic obstructive pulmonary disease with (acute) exacerbation; I50.9 Heart failure, unspecified; R26.89 Other abnormalities of gait and mobility; K21.9 Gastro-esophageal reflux disease without esophagitis; I25.10 Atherosclerotic heart disease of native coronary artery without angina pectoris; R06.02 Shortness of breath
CPT/HCPCS: 36415; 71010; 71020; 71045; 71046; 80053; 80061; 82550; 82553; 83735; 83880; 84484; 85025; 85378; 85610; 85730; 93005; 93010; 94640; 94760; 96365; 96374; 96375; 97162; 97167; 97535; 99284; A4216; A4222; C9113; Q0169; G0378; J1940; J2270; J7613; J7626

== ENCOUNTER 2022-05-05 13:36 | Observation (INO) ==
--- NOTE | 2022-05-05 13:46 | DR.SOBA ---
HPI Time Seen Time Seen by Provider: 05/05/22 13:45 Complaints Chief Complaint Doctors Comments: 76 y/o female, not feeling well x 3 days. Has had nausea, vomiting and diarrhea. Thinks she is running a low grade temp. + occasional cough, loose. + dyspnea at times. Has been having worsening left anterior chest wall pain. + pressure like sensation, does not radiate. Nothing makes better, nothing makes worse. Reviewed Nurses Notes Reviewed: Yes Source History Provided: Patient PMH PMH Past Medical History: Anemia, Anxiety, Arthritis, CHF, COPD, Coronary Artery Disease, CVA, Depression, Diabetes, Dyslipidemia, GERD, Hypertension and [place] Past Surgical History: Yes Surgical History: Hysterectomy and Ortho Surgery Family History Family Medical History: Cancer, Coronary Artery Disease and Hypertension Social History Do you use any recreational Drugs:: No ROS Review of Systems Constitutional: Chills, Diaphoresis and Fever Eyes: No Symptoms Reported ENTM: No Symptoms Reported Respiratoy: Moist Cough and Short of Breath Cardiovascular: Chest Pain Gastrointestinal/Abdominal: Diarrhea, Nausea and Vomiting Genitourinary: No Symptoms Reported Neurological: Weakness Musculoskeletal: Chest wall Integumentary: No Symptoms Reported Hematologic/Lymphatic: No Symptoms Reported Psychiatric: No Symptoms Reported All Other Systems: Reviewed and Negative PE Vital Signs Vitals: Temperature 98.3 F Pulse Rate 85 Respiratory Rate 25 Blood Pressure [Right Arm] 153/69 Blood Pressure [Left Arm] 80/50 Blood Pressure 167/98 O2 Sat by Pulse Oximetry 96 General General Appearance: Alert and In No Apparent Distress Head Head Exam: Normal Inspection Eyes Eye exam: PERRL and EOMI ENT ENT Exam: Mucous Membranes Moist Neck Neck Exam: Normal Inspection and Full ROM; negative Tenderness Chest Chest Inspection: Tenderness (left anterior chest wall to palpation. ) Respiratory Respiratory Exam: Other (+ bibasial rales, R > L.); negative Normal Lung Sounds Bilat Cardiovascular Cardiovascular Exam: Regular Rate, Normal Rhythm and Normal Heart Sounds Abdominal Exam Abdominal Exam: Soft; negative Tenderness Extremities Extremities Exam: Normal Inspection and Full ROM; negative Edema Back Back Exam: Normal Inspection Neurologic Neurological Exam: Alert, Oriented X3 and CN II-XII Intact; negative Motor Sensory Deficit Skin Skin Exam: Warm and Dry COURSE Treatment Treatment: 76 y/o female, ill past 3 days with vomiting, now with worsening dyspnea, chest pain. W/u initiated. CXR - + degree of pulmonary vascular congestion. Pt given IV lasix, + good response. Pt reportedly on lasix, 80 mg qday, but makes her sick. Troponin acceptable. Recommend admission, for further treatment of her CHF, and will repeat the troponin levels. Discussed wiht Dr Hewitt, covering, accepts the admission. [facility] Labs Reviewed Laboratory Results Reviewed?: Yes Result Diagrams: 05/05/22 13:50 05/05/22 13:50 Laboratory: WBC 5.9 X10^3/uL (3.6-10.0) 05/05/22 13:50 RBC 5.40 X10^6/uL (3.5-5.4) 05/05/22 13:50 Hgb 15.2 g/dL (12.0-16.0) 05/05/22 13:50 Hct 45.0 % (36.0-47.0) 05/05/22 13:50 MCV 83.4 fL (80.0-100.0) 05/05/22 13:50 MCH 28.1 pg (27.0-34.0) 05/05/22 13:50 MCHC 33.7 g/dL (33.0-35.0) 05/05/22 13:50 RDW 14.4 % (11.6-16.5) 05/05/22 13:50 Plt Count 144 X10^3/uL (150.0-450.0) L 05/05/22 13:50 MPV 7.5 fL (7.4-11.0) 05/05/22 13:50 Neut % (Auto) 64.8 % (42.0-75.0) 05/05/22 13:50 Lymph % (Auto) 25.8 % (21.0-51.0) 05/05/22 13:50 [place] % (Auto) 6.8 % (0.0-13.0) 05/05/22 13:50 Eos % (Auto) 2.1 % (0.9-2.9) 05/05/22 13:50 Baso % (Auto) 0.5 % (0.2-1.0) 05/05/22 13:50 Neut # (Auto) 3.8 x10^3/uL (2.2-4.8) 05/05/22 13:50 Lymph # (Auto) 1.5 X10^3/uL (1.3-2.9) 05/05/22 13:50 [place] # (Auto) 0.4 x10^3/uL (0.3-0.8) 05/05/22 13:50 Eos # (Auto) 0.1 x10^3/uL (0.0-0.2) 05/05/22 13:50 Baso # (Auto) 0.0 X10^3/uL (0.0-0.1) 05/05/22 13:50 Absolute Nucleated RBC 0.2 /100WBC 05/05/22 13:50 Sample Site [place] 05/05/22 13:46 ABG pH 7.440 (7.35-7.45) 05/05/22 13:46 ABG pCO2 43.0 mmHg (35.0-45.0) 05/05/22 13:46 ABG pO2 126.0 mmHg (80.0-100.0) H 05/05/22 13:46 ABG HCO3 29.2 mmol/L (22-26) H 05/05/22 13:46 ABG O2 Saturation 99.0 % (90-100) 05/05/22 13:46 ABG Base Excess 4.5 mmol/L (-2.0-2.0) H 05/05/22 13:46 Calixto Test Pos 05/05/22 13:46 A-a Gradient 48.0 mmHg 05/05/22 13:46 FiO2 32.0 05/05/22 13:46 Blood Gas Comments Pt carey well elj cdn 05/05/22 13:46 Sodium 140 mmol/L (136-145) 05/05/22 13:50 Corrected Sodium 140 mmol/L (136-145) 05/05/22 13:50 Potassium 3.7 mmol/L (3.5-5.1) 05/05/22 13:50 Chloride 104 mmol/L (98-107) 05/05/22 13:50 Carbon Dioxide 31.9 mmol/L (21-32) 05/05/22 13:50 BUN 12 mg/dL (7-18) 05/05/22 13:50 Creatinine 0.79 mg/dL (0.55-1.02) 05/05/22 13:50 Est GFR (MDRD) Af Amer > 60 (>60) 05/05/22 13:50 Est GFR (MDRD) Non-Af > 60 (>60) 05/05/22 13:50 Glucose 111 mg/dL (65-99) H 05/05/22 13:50 Calcium 8.8 mg/dL (8.5-10.1) 05/05/22 13:50 Corrected Calcium TNP 05/05/22 13:50 Total Bilirubin 0.60 mg/dL (0.2-1.0) 05/05/22 13:50 AST 29 Units/L (15-37) 05/05/22 13:50 ALT 41 Units/L (12-78) 05/05/22 13:50 Alkaline Phosphatase 65 Units/L (46-116) 05/05/22 13:50 Troponin I High Sens 20.3 ng/L (4.0-60.0) 05/05/22 13:50 B-Natriuretic Peptide 176 pg/mL (0-79) H 05/05/22 13:50 Total Protein 6.9 g/dL (6.4-8.2) 05/05/22 13:50 Albumin 3.4 g/dL (3.4-5.0) 05/05/22 13:50 Globulin 3.5 g/dL (2.5-4.5) 05/05/22 13:50 Albumin/Globulin Ratio 1.0 Ratio (1.1-2.1) L 05/05/22 13:50 Specimen Type Clean catch urine 05/05/22 15:10 Urine Color Pale yellow (YELLOW) 05/05/22 15:10 Urine Appearance Clear (CLEAR) 05/05/22 15:10 Urine pH 7.0 (5.0 - 8.0) 05/05/22 15:10 Ur Specific [place] 1.015 (1.000-1.030) 05/05/22 15:10 Urine Protein Negative (NEGATIVE) 05/05/22 15:10 Urine Glucose (UA) Negative (NEGATIVE) 05/05/22 15:10 Urine Ketones Negative (NEGATIVE) 05/05/22 15:10 Urine Blood Negative (NEGATIVE) 05/05/22 15:10 Urine Nitrite Negative (NEGATIVE) 05/05/22 15:10 Urine Bilirubin Negative (NEGATIVE) 05/05/22 15:10 Urine Urobilinogen Normal (NORMAL) 05/05/22 15:10 Ur Leukocyte Esterase Negative (NEGATIVE) 05/05/22 15:10 SARS-CoV-2 (PCR) Negative (NEGATIVE) 05/05/22 14:09 Influenza Type A (PCR) Negative (NEGATIVE) 05/05/22 14:09 Influenza Type B (PCR) Negative (NEGATIVE) 05/05/22 14:09 RSV (PCR) Negative (NEGATIVE) 05/05/22 14:09 BNP mildly elevated. XRAY XRAY Interpreted by: Both X-ray Results: + cardiomegaly, + pulmonary vascular congestion. EKG Rate: 55 [place]man: Normal Rhythm: SB, PACs and PVCs Block: None Hypertrophy: None ST: Normal Opioid Opioid Risk Tool Age (Jose box if 16-45): No History of Preadolescent Sexual Abuse: No Total: 0 Total Score Risk Category: Low Risk Copyright: [facility] predicting aberrant behaviors Discharge Plan Diagnosis Discharge Problem: CHF (congestive heart failure), Chest pain Discharge Plan Patient Disposition: ADMITTED INPATIENT Condition: Stable Prescriptions: No Action losartan 50 mg tablet 50 mg PO QDAY carvedilol 12.5 mg tablet 0.5 tab PO BID citalopram 40 mg tablet 40 mg PO QDAY clopidogrel 75 mg tablet 75 mg PO QDAY omeprazole 40 mg capsule,delayed release(DR/EC) 40 mg PO QDAY furosemide 80 mg tablet 80 mg PO QDAY meclizine 25 mg tablet 0.5 tab PO Q12H PRN (Reason: dizziness) promethazine 25 mg tablet 0.5 tab PO Q6H PRN (Reason: nausea/vomiting) nitroglycerin 0.4 mg tablet, sublingual 0.4 mg sublingual PRN hydroxyzine HCl 25 mg tablet 25 mg PO BID fluticasone propionate 50 mcg/actuation spray,suspension 2 spray INTRANASAL QDAY loratadine 10 mg tablet 10 mg PO QDAY topiramate 50 mg tablet 50 mg PO BID ranolazine 500 mg tablet extended release 12 hr 1 tab PO BID aspirin [Aspir-81] 81 mg Tablet,Delayed Release (Dr/Ec) 81 mg PO DAILY Health Concerns: Post Hospitalization: new medications and changes needed to prevent readmission or further decline. Pt educated and given instructions on all concerns. Plan of Treatment: Continue with present treatment and follow up plan. Pt is to keep follow up appointment as instructed and take medications as ordered. Orders to Discharge Patient Discharge Orders: Transfer (Routine); Ordered 05/05/22 Ordered By: Mason Raygoza Follow ups/Referrals Follow ups/Referrals: JACKSON DANIELSON [Primary Care Provider] - 3 days
--- NOTE | 2022-05-05 13:48 | EKG ---
Test Reason : CHEST PAIN Blood Pressure : */* mmHG Vent. Rate : 55 BPM Atrial Rate : 55 BPM P-R Int : 176 ms QRS Dur : 82 ms QT Int : 450 ms P-R-T Axes : 83 50 12 degrees QTc Int : 430 ms Sinus bradycardia with occasional premature ventricular complexes and premature atrial complexes Otherwise normal ECG When compared with ECG of 13-FEB-2022 21:00, premature atrial complexes are now present Nonspecific T wave abnormality no longer evident in Anterolateral leads Confirmed by Cade Echeverria (4) on 05/06/2022 12:41:57 PM Referred By: Confirmed By: Cade Echeverria
[2022-05-05 13:54] LABS: ABG ALLEN TEST POS; ABG BASE EXCESS 4.5 mmol/L (-2.0-2.0); ABG HCO3 29.2 mmol/L (22-26)
[2022-05-05] MEDS ORDERED: APRESOLINE INJ 20 MG VIAL IVP ONE ×2 (14:03→14:53)
[2022-05-05] MEDS ORDERED: ASPIRIN ONE (14:05)
[2022-05-05] MEDS ORDERED: APRESOLINE INJ 20 MG VIAL ONE ×2 (14:05→14:54)
[2022-05-05] MEDS ORDERED: ASPIRIN PO ONE (14:14)
[2022-05-05 14:28] LABS: ALANINE AMINOTRANSFERASE 41 Units/L (12-78); ALBUMIN 3.4 g/dL (3.4-5.0); ALKALINE PHOSPHATASE 65 Units/L (46-116); ASPARTATE AMINO TRANSFERASE 29 Units/L (15-37); BLOOD UREA NITROGEN 12 mg/dL (7-18); CALCIUM 8.8 mg/dL (8.5-10.1); CARBON DIOXIDE 31.9 mmol/L (21-32); CHLORIDE 104 mmol/L (98-107); COR NA(FOR HYPERGLY) 140 mmol/L (136-145); CREATININE 0.79 mg/dL (0.55-1.02); SODIUM 140 mmol/L (136-145); TOTAL PROTEIN 6.9 g/dL (6.4-8.2); eGFR NON BLACK RACES > 60 (>60)
[2022-05-05 14:33] LABS: BASOPHILS % (AUTO) 0.5 % (0.2-1.0); EOSINOPHILS # (AUTO) 0.1 x10^3/uL (0.0-0.2); EOSINOPHILS % (AUTO) 2.1 % (0.9-2.9); HEMOGLOBIN 15.2 g/dL (12.0-16.0); LYMPHOCYTES # (AUTO) 1.5 X10^3/uL (1.3-2.9); LYMPHOCYTES % (AUTO) 25.8 % (21.0-51.0); MEAN CORPUSCULAR HEMOGLOBIN 28.1 pg (27.0-34.0); MEAN CORPUSCULAR HGB CONC 33.7 g/dL (33.0-35.0); MEAN CORPUSCULAR VOLUME 83.4 fL (80.0-100.0); MEAN PLATELET VOLUME 7.5 fL (7.4-11.0); MONOCYTES # (AUTO) 0.4 x10^3/uL (0.3-0.8); MONOCYTES % (AUTO) 6.8 % (0.0-13.0); NEUTROPHILS # (AUTO) 3.8 x10^3/uL (2.2-4.8); NEUTROPHILS % (AUTO) 64.8 % (42.0-75.0); RED CELL DISTRIBUTION WIDTH 14.4 % (11.6-16.5); WHITE BLOOD COUNT 5.9 X10^3/uL (3.6-10.0)
[2022-05-05] MEDS ORDERED: LASIX IVP ONE ×2 (14:53→14:54)
[2022-05-05 15:17] LABS: BILIRUBIN,URINE NEGATIVE (NEGATIVE); BLOOD/HEMOGLOBIN,URINE NEGATIVE (NEGATIVE); GLUCOSE, URINE NEGATIVE (NEGATIVE); KETONES,URINE NEGATIVE (NEGATIVE); LEUKOCYTE ESTERASE ,URINE NEGATIVE (NEGATIVE); NITRITES,URINE NEGATIVE (NEGATIVE); PROTEIN,URINE NEGATIVE (NEGATIVE); UROBILINOGEN,URINE NORMAL (NORMAL)
[2022-05-05 15:19] LABS: APPEARANCE,URINE CLEAR (CLEAR); COLOR,URINE PALE YELLOW (YELLOW)
[2022-05-05] MEDS ORDERED: MORPHINE SULFATE INJ 4 MG IVP ONE (15:20)
[2022-05-05] MEDS ORDERED: MORPHINE SULFATE INJ 4 MG ONE (15:21)
--- NOTE | 2022-05-05 15:22 | RAD ---
HISTORYSOB chest painSTUDYAP chestCOMPARISONAugust 2021FINDINGSModerate stable cardiomegaly with vascular congestion. There is no localized consolidation, mass formation, or pleural effusion.IMPRESSIONSimilar appearance of cardiac enlargement and mild pulmonary venous congestion.Electronically signed by: WAYNE SIMMONS (May 05, 2022 15:21:23)
[2022-05-05] MEDS ORDERED: MORPHINE SULFATE INJ 2 MG INJ IVP ONE (17:34)
[2022-05-05] MEDS ORDERED: MORPHINE SULFATE INJ 2 MG INJ ONE (17:35)
[2022-05-05] MEDS ORDERED: ANTIVERT TAB 25 MG PO PRN (17:51)
[2022-05-05] MEDS ORDERED: ZOFRAN INJ 4 MG VIAL IVP PRN (17:51)
[2022-05-05] MEDS ORDERED: NITROSTAT SL SCH (17:51)
[2022-05-05] MEDS: RANEXA PO SCH (21:13)
[2022-05-05] MEDS: ATARAX TAB 25 MG PO SCH (21:13)
[2022-05-05] MEDS: COREG TAB 12.5 MG PO SCH (21:13)
[2022-05-05] MEDS: TOPAMAX PO SCH (21:15)
[2022-05-05] MEDS ORDERED: RESTORIL CAP 15 MG PO PRN (23:34)
[2022-05-06 05:30] LABS: BASOPHILS % (AUTO) 0.4 % (0.2-1.0); EOSINOPHILS # (AUTO) 0.2 x10^3/uL (0.0-0.2); EOSINOPHILS % (AUTO) 2.6 % (0.9-2.9); HEMATOCRIT 43.9 % (36.0-47.0); HEMOGLOBIN 14.6 g/dL (12.0-16.0); LYMPHOCYTES # (AUTO) 2.4 X10^3/uL (1.3-2.9); LYMPHOCYTES % (AUTO) 31.8 % (21.0-51.0); MEAN CORPUSCULAR HGB CONC 33.4 g/dL (33.0-35.0); MEAN CORPUSCULAR VOLUME 83.9 fL (80.0-100.0); MEAN PLATELET VOLUME 8.2 fL (7.4-11.0); MONOCYTES # (AUTO) 0.6 x10^3/uL (0.3-0.8); MONOCYTES % (AUTO) 8.3 % (0.0-13.0); NEUTROPHILS # (AUTO) 4.3 x10^3/uL (2.2-4.8); NEUTROPHILS % (AUTO) 56.9 % (42.0-75.0); RED BLOOD COUNT 5.23 X10^6/uL (3.5-5.4); RED CELL DISTRIBUTION WIDTH 14.4 % (11.6-16.5); WHITE BLOOD COUNT 7.5 X10^3/uL (3.6-10.0)
[2022-05-06 05:43] LABS: ALANINE AMINOTRANSFERASE 32 Units/L (12-78); ALBUMIN 2.9 g/dL (3.4-5.0); ALKALINE PHOSPHATASE 57 Units/L (46-116); ASPARTATE AMINO TRANSFERASE 23 Units/L (15-37); BLOOD UREA NITROGEN 10 mg/dL (7-18); CALCIUM 8.5 mg/dL (8.5-10.1); CARBON DIOXIDE 30.3 mmol/L (21-32); CHLORIDE 103 mmol/L (98-107); COR CA(FOR HYPOALB) 9.4 mg/dL (8.5-10.1); COR NA(FOR HYPERGLY) 142 mmol/L (136-145); CREATININE 0.85 mg/dL (0.55-1.02); SODIUM 141 mmol/L (136-145); TOTAL PROTEIN 5.9 g/dL (6.4-8.2); eGFR NON BLACK RACES > 60 (>60)
--- NOTE | 2022-05-06 06:03 | RAD ---
HISTORYchf, chest pains CHF, COPD, CAD, CVA, GERD, HTN, FL, ANEMIA SX: HYST, ORTHOSTUDYCHEST, 1 [id number]/2023FINDINGSThe trachea is midline. The cardiac silhouette is moderately enlarged.. Mild pulmonary venous congestion unchanged. The lungs are clear without focal infiltrate or effusion. The bony thorax is unremarkable.IMPRESSIONModerate cardiomegalyMild pulmonary venous congestion.Electronically signed by: Dat Fong (May 06, 2022 06:01:35)
[2022-05-06] MEDS ORDERED: K-RIDER 10 MEQ/NS 100 ML 10 MEQ/100 ML BAG IV PRN (06:35)
[2022-05-06] MEDS ORDERED: POTASSIUM CHL 60 MEQ/NS 0.45% 500 ML IV PRN (06:35)
[2022-05-06] MEDS ORDERED: POTASSIUM CHLORIDE LIQ 20 MEQ UDC PO PRN (06:35)
[2022-05-06] MEDS ORDERED: POTASSIUM CHL 40 MEQ/NS 0.45% 500 ML IV PRN (06:35)
[2022-05-06] MEDS ORDERED: MICRO K EXTEN CAP 10 MEQ PO PRN (06:35)
[2022-05-06] MEDS ORDERED: K-DUR TAB 20 MEQ PO PRN (06:35)
[2022-05-06] MEDS ORDERED: KLOR-CON PO PRN (06:35)
[2022-05-06] MEDS ORDERED: PriLOSEC PO SCH (09:00)
[2022-05-06] MEDS ORDERED: CLARITIN PO SCH (09:00)
[2022-05-06] MEDS ORDERED: ASPIRIN EC 81 MG PO SCH (09:00)
[2022-05-06] MEDS ORDERED: CELEXA PO SCH (09:00)
[2022-05-06] MEDS ORDERED: FLONASE NASAL SPRAY ENOSTRIL SCH (09:00)
[2022-05-06] MEDS ORDERED: LASIX IVP SCH (09:00)
[2022-05-06] MEDS ORDERED: PLAVIX PO SCH (09:00)
[2022-05-06] MEDS ORDERED: COZAAR PO SCH (09:00)
[2022-05-06] MEDS ORDERED: ASPIRIN PO SCH (09:00)
[2022-05-06] MEDS: ATARAX TAB 25 MG PO SCH (09:03)
[2022-05-06] MEDS: RANEXA PO SCH (09:03)
[2022-05-06] MEDS: COREG TAB 12.5 MG PO SCH (09:03)
[2022-05-06] MEDS: TOPAMAX PO SCH (09:05)
[2022-05-06] MEDS: MAGNESIUM SULFATE 1 GRAM/100 mL PREMIX 1 G/100 ML BAG IV PRN ×2 (09:07→10:27)
[2022-05-06] MEDS ORDERED: LOVENOX INJ 40 MG SYR SC SCH (10:00)
[2022-05-06 16:41] VITALS: BP 130/60
== END 2022-05-06 18:40 | disposition home or self-care (01) ==
LOC: ER 13:36 → MED/SURG 13:36
PROVIDERS: ADMIT Internal Medicine; ATTEND Obstetrics & Gynecology Obstetrics

== ENCOUNTER 2022-07-28 09:31 | Observation (INO) ==
--- NOTE | 2022-07-28 09:36 | DR.CP ---
HPI Time Seen Time Seen by Provider: 07/28/22 09:36 Complaint Chief Complaint Doctor Comments: Patient began to have nausea and vomiting this am and states her chest pain began at that time. Patient states that the pain is sharp and radiates to her Left arm and back. Patient had subjective fever yest erday, periumbilical pain. Patient's cardiac risk factors: Htn,CAD IA x 2 ( most recent was last yr),+ tobacco use started smoking at age 15 3ppd/stopped 7-8 yrs ago. 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 Patient denies: headache, sob,hematmesis,hematochezia. PMH PMH Past Medical History: Anemia, Anxiety, Arthritis, CHF, COPD, Coronary Artery Disease, CVA, Depression, Diabetes, Dyslipidemia, GERD, Hypertension and IA Past Surgical History: Yes Surgical History: Hysterectomy and Ortho Surgery Family History Family Medical History: Cancer, Coronary Artery Disease and Hypertension Social History Do you use any recreational Drugs:: No ROS Review of Systems Constitutional: No Symptoms Reported Eyes: No Symptoms Reported ENTM: No Symptoms Reported Respiratoy: negative Dry Cough or Short of Breath Cardiovascular: Chest Pain; negative Palpitations Gastrointestinal/Abdominal: Abdominal Pain (periumbilical) Genitourinary: No Symptoms Reported Neurological: negative Headache, Numbness, Paresthesia, Seizure or Tingling Musculoskeletal: Back Pain Integumentary: No Symptoms Reported Hematologic/Lymphatic: No Symptoms Reported Endocrine: No Symptoms Reported Psychiatric: No Symptoms Reported All Other Systems: Reviewed and Negative PE Vitals Vitals: Temperature 97.8 F Pulse Rate 50 Respiratory Rate 21 Blood Pressure [Right Arm] 130/60 Blood Pressure 133/61 O2 Sat by Pulse Oximetry 96 General Limitations: No Limitations General Appearance: Alert and In No Apparent Distress Head Head Exam: Normal Inspection Eyes Eye exam: Normal Appearance ENT ENT Exam: Normal Exam Chest Chest Inspection: Normal Inspection Respiratory Respiratory Exam: Normal Lung Sounds Bilat Respiratory Exam: Bilateral: Clear to Auscultation Cardiovascular Cardiovascular Exam: Regular Rate and Normal Rhythm; negative Systolic Murmur, Diastolic Murmur, Rubs, Gallop, Clicks or JVD Pulse: Normal Edema: Normal Abdominal Exam Abdominal Exam: Normal Inspection, Normal Bowel Sounds and Soft Extremities Extremities Exam: Normal Inspection Back Back Exam: Normal Inspection Neurologic Neurological Exam: Alert and Oriented X3 Psychiatric Psychiatric Exam: Normal Affect and Normal Mood Skin Skin Exam: Warm, Dry, Intact and Normal Color MDM Differential Diagnosis Differential Diagnosis: Angina, CHF, Myocardial Infarction and Pneumonia COURSE Treatment Treatment: Patient was brought to a monitored room and iv access was initiated. Patient was took ntg sl x 2 at home, and was given asa 162mg po enroute to the ED. Patient's pain is 8-9/10 on arrival. Patient was given Ntg sl ( 3rd dose).Her chest pain decreased to 5/10. Patient has been stable in the ED.CXR did not reveal an acute process. Patient has cardiac risk factors and has been accepted to Dr Shrestha's service for further inpatient evaluation.First troponin is 17.7 and ekg did not reveal acute ischemia. [facility] Labs Reviewed Laboratory Results Reviewed?: Yes Result Diagrams: 07/28/22 10:00 07/28/22 10:00 Laboratory: WBC 7.5 X10^3/uL (3.6-10.0) 07/28/22 10:00 RBC 5.44 X10^6/uL (3.5-5.4) H 07/28/22 10:00 Hgb 15.6 g/dL (12.0-16.0) 07/28/22 10:00 Hct 46.5 % (36.0-47.0) 07/28/22 10:00 MCV 85.5 fL (80.0-100.0) 07/28/22 10:00 MCH 28.6 pg (27.0-34.0) 07/28/22 10:00 MCHC 33.5 g/dL (33.0-35.0) 07/28/22 10:00 RDW 14.2 % (11.6-16.5) 07/28/22 10:00 Plt Count 150 X10^3/uL (150.0-450.0) 07/28/22 10:00 MPV 7.6 fL (7.4-11.0) 07/28/22 10:00 Neut % (Auto) 71.8 % (42.0-75.0) 07/28/22 10:00 Lymph % (Auto) 17.8 % (21.0-51.0) L 07/28/22 10:00 [place] % (Auto) 7.4 % (0.0-13.0) 07/28/22 10:00 Eos % (Auto) 2.3 % (0.9-2.9) 07/28/22 10:00 Baso % (Auto) 0.7 % (0.2-1.0) 07/28/22 10:00 Neut # (Auto) 5.4 x10^3/uL (2.2-4.8) H 07/28/22 10:00 Lymph # (Auto) 1.3 X10^3/uL (1.3-2.9) 07/28/22 10:00 [place] # (Auto) 0.6 x10^3/uL (0.3-0.8) 07/28/22 10:00 Eos # (Auto) 0.2 x10^3/uL (0.0-0.2) 07/28/22 10:00 Baso # (Auto) 0.1 X10^3/uL (0.0-0.1) 07/28/22 10:00 Absolute Nucleated RBC 0.1 /100WBC 07/28/22 10:00 PT 13.4 SECONDS (11.8-14.3) 07/28/22 10:00 INR Target Range - 07/28/22 10:00 INR 1.04 (0.8-1.3) 07/28/22 10:00 APTT 30.6 SECONDS (22.9-36.5) 07/28/22 10:00 PTT Comment - 07/28/22 10:00 Sodium 138 mmol/L (136-145) 07/28/22 10:00 Corrected Sodium 139 mmol/L (136-145) 07/28/22 10:00 Potassium 3.7 mmol/L (3.5-5.1) 07/28/22 10:00 Chloride 101 mmol/L (98-107) 07/28/22 10:00 Carbon Dioxide 32.4 mmol/L (21-32) H 07/28/22 10:00 BUN 14 mg/dL (7-18) 07/28/22 10:00 Creatinine 0.91 mg/dL (0.55-1.02) 07/28/22 10:00 Est GFR (MDRD) Af Amer > 60 (>60) 07/28/22 10:00 Est GFR (MDRD) Non-Af > 60 (>60) 07/28/22 10:00 Glucose 134 mg/dL (65-99) H 07/28/22 10:00 Calcium 8.7 mg/dL (8.5-10.1) 07/28/22 10:00 Corrected Calcium TNP 07/28/22 10:00 Total Bilirubin 0.40 mg/dL (0.2-1.0) 07/28/22 10:00 AST 19 Units/L (15-37) 07/28/22 10:00 ALT 22 Units/L (12-78) 07/28/22 10:00 Alkaline Phosphatase 73 Units/L (46-116) 07/28/22 10:00 Troponin I High Sens 17.7 ng/L (4.0-60.0) 07/28/22 11:55 B-Natriuretic Peptide 128 pg/mL (0-79) H 07/28/22 10:00 Total Protein 6.9 g/dL (6.4-8.2) 07/28/22 10:00 Albumin 3.5 g/dL (3.4-5.0) 07/28/22 10:00 Globulin 3.4 g/dL (2.5-4.5) 07/28/22 10:00 Albumin/Globulin Ratio 1.0 Ratio (1.1-2.1) L 07/28/22 10:00 Specimen Type Clean catch urine 07/28/22 10:00 Urine Color Straw (YELLOW) 07/28/22 10:00 Urine Appearance Clear (CLEAR) 07/28/22 10:00 Urine pH 6.0 (5.0 - 8.0) 07/28/22 10:00 Ur Specific [place] 1.020 (1.000-1.030) 07/28/22 10:00 Urine Protein Negative (NEGATIVE) 07/28/22 10:00 Urine Glucose (UA) Negative (NEGATIVE) 07/28/22 10:00 Urine Ketones Negative (NEGATIVE) 07/28/22 10:00 Urine Blood Negative (NEGATIVE) 07/28/22 10:00 Urine Nitrite Negative (NEGATIVE) 07/28/22 10:00 Urine Bilirubin Negative (NEGATIVE) 07/28/22 10:00 Urine Urobilinogen Normal (NORMAL) 07/28/22 10:00 Ur Leukocyte Esterase Negative (NEGATIVE) 07/28/22 10:00 XRAY XRAY Interpreted by: Radiologist X-ray Results: HISTORY Chest pain STUDY AP chest COMPARISON May 06, 2022 FINDINGS Similar cardiomegaly and mild pulmonary vascular congestion. There is no definite consolidation, atelectasis, pneumothorax or pleural fluid. IMPRESSION No change. Electronically signed by: WAYNE SIMMONS (July 28, 2022 11:32:09) EKG Compared to prior EKG Dated: 07/28/22 Rate: 61 [place]: Normal Rhythm: NSR and PVCs (poccasional) Opioid Opioid Risk Tool Age (Jose box if 16-45): No History of Preadolescent Sexual Abuse: No Total: 0 Total Score Risk Category: Low Risk Copyright: [facility] predicting aberrant behaviors Discharge Plan Diagnosis Discharge Problem: Chest pain Discharge Plan Patient Disposition: ADMITTED INPATIENT Condition: Stable
[2022-07-28] MEDS ORDERED: ZOFRAN INJ 4 MG VIAL IVP ONE (09:58)
[2022-07-28 09:59] VITALS: BMI 33.5
[2022-07-28] MEDS ORDERED: ZOFRAN INJ 4 MG VIAL ONE (10:00)
[2022-07-28] MEDS ORDERED: NITROSTAT SL ONE (10:11)
[2022-07-28] MEDS ORDERED: NS 500 ML IV 500 ML IV ONE ×2 (10:11→10:12)
[2022-07-28 10:13] LABS: BASOPHILS # (AUTO) 0.1 X10^3/uL (0.0-0.1); BASOPHILS % (AUTO) 0.7 % (0.2-1.0); BILIRUBIN,URINE NEGATIVE (NEGATIVE); BLOOD/HEMOGLOBIN,URINE NEGATIVE (NEGATIVE); EOSINOPHILS # (AUTO) 0.2 x10^3/uL (0.0-0.2); EOSINOPHILS % (AUTO) 2.3 % (0.9-2.9); GLUCOSE, URINE NEGATIVE (NEGATIVE); HEMATOCRIT 46.5 % (36.0-47.0); HEMOGLOBIN 15.6 g/dL (12.0-16.0); KETONES,URINE NEGATIVE (NEGATIVE); LEUKOCYTE ESTERASE ,URINE NEGATIVE (NEGATIVE); LYMPHOCYTES # (AUTO) 1.3 X10^3/uL (1.3-2.9); LYMPHOCYTES % (AUTO) 17.8 % (21.0-51.0); MEAN CORPUSCULAR HEMOGLOBIN 28.6 pg (27.0-34.0); MEAN CORPUSCULAR HGB CONC 33.5 g/dL (33.0-35.0); MEAN CORPUSCULAR VOLUME 85.5 fL (80.0-100.0); MEAN PLATELET VOLUME 7.6 fL (7.4-11.0); MONOCYTES # (AUTO) 0.6 x10^3/uL (0.3-0.8); MONOCYTES % (AUTO) 7.4 % (0.0-13.0); NEUTROPHILS # (AUTO) 5.4 x10^3/uL (2.2-4.8); NEUTROPHILS % (AUTO) 71.8 % (42.0-75.0); NITRITES,URINE NEGATIVE (NEGATIVE); PLATELET COUNT 150 X10^3/uL (150.0-450.0); PROTEIN,URINE NEGATIVE (NEGATIVE); RED BLOOD COUNT 5.44 X10^6/uL (3.5-5.4); RED CELL DISTRIBUTION WIDTH 14.2 % (11.6-16.5); UROBILINOGEN,URINE NORMAL (NORMAL); WHITE BLOOD COUNT 7.5 X10^3/uL (3.6-10.0)
[2022-07-28] MEDS ORDERED: NITROSTAT ONE (10:13)
[2022-07-28 10:20] LABS: INR 1.04 (0.8-1.3)
[2022-07-28 10:27] LABS: ALANINE AMINOTRANSFERASE 22 Units/L (12-78); ALBUMIN 3.5 g/dL (3.4-5.0); ALKALINE PHOSPHATASE 73 Units/L (46-116); ASPARTATE AMINO TRANSFERASE 19 Units/L (15-37); BLOOD UREA NITROGEN 14 mg/dL (7-18); CALCIUM 8.7 mg/dL (8.5-10.1); CARBON DIOXIDE 32.4 mmol/L (21-32); CHLORIDE 101 mmol/L (98-107); COR NA(FOR HYPERGLY) 139 mmol/L (136-145); CREATININE 0.91 mg/dL (0.55-1.02); GLUCOSE 134 mg/dL (65-99); SODIUM 138 mmol/L (136-145); TOTAL PROTEIN 6.9 g/dL (6.4-8.2); eGFR NON BLACK RACES > 60 (>60)
[2022-07-28 10:30] LABS: POTASSIUM 3.7 mmol/L (3.5-5.1)
[2022-07-28 10:33] LABS: APPEARANCE,URINE CLEAR (CLEAR); COLOR,URINE STRAW (YELLOW)
--- NOTE | 2022-07-28 10:35 | EKG ---
Test Reason : chest pain Blood Pressure : */* mmHG Vent. Rate : 61 BPM Atrial Rate : 61 BPM P-R Int : 202 ms QRS Dur : 86 ms QT Int : 456 ms P-R-T Axes : 53 55 34 degrees QTc Int : 459 ms Sinus rhythm with sinus arrhythmia with occasional premature ventricular complexes Otherwise normal ECG When compared with ECG of 05-MAY-2022 13:46, premature atrial complexes are no longer present Confirmed by Cade Echeverria (4) on 07/29/2022 7:49:19 AM Referred By: Confirmed By: Cade Echeverria
--- NOTE | 2022-07-28 11:33 | RAD ---
HISTORYChest painSTUDYAP chestCOMPARISONFebruary 2022FINDINGSSimilar cardiomegaly and mild pulmonary vascular congestion. There is no definite consolidation, atelectasis, pneumothorax or pleural fluid.IMPRESSIONNo change.Electronically signed by: WAYNE SIMMONS (July 28, 2022 11:32:09)
[2022-07-28] MEDS ORDERED: ANTIVERT TAB 25 MG PO PRN (12:57)
[2022-07-28] MEDS ORDERED: PHENERGAN TAB 25 MG PO PRN (12:57)
[2022-07-28] MEDS ORDERED: NITROSTAT SL SCH (13:00)
--- NOTE | 2022-07-28 16:34 | EKG ---
Test Reason : CHEST PAIN Blood Pressure : */* mmHG Vent. Rate : 49 BPM Atrial Rate : 49 BPM P-R Int : 196 ms QRS Dur : 86 ms QT Int : 470 ms P-R-T Axes : 51 38 42 degrees QTc Int : 424 ms Sinus bradycardia with sinus arrhythmia with occasional premature ventricular complexes Otherwise normal ECG When compared with ECG of 28-JUL-2022 10:33, (Unconfirmed) No significant change was found Confirmed by Cade Echeverria (4) on 07/29/2022 7:49:00 AM Referred By: Confirmed By: Cade Echeverria
[2022-07-28] MEDS: ZOFRAN INJ 4 MG VIAL IVP PRN (19:13)
[2022-07-28] MEDS ORDERED: ATIVAN INJ 2 MG VIAL IVP ONE (19:46)
[2022-07-28] MEDS ORDERED: ATIVAN INJ 2 MG VIAL ONE (19:48)
[2022-07-28] MEDS: COREG TAB 12.5 MG PO SCH (21:01)
[2022-07-28] MEDS: ATARAX TAB 25 MG PO SCH (21:02)
[2022-07-28] MEDS: RANEXA PO SCH (21:02)
[2022-07-28] MEDS: TOPAMAX PO SCH (21:03)
--- NOTE | 2022-07-28 21:55 | EKG ---
Test Reason : CHEST PAIN Blood Pressure : */* mmHG Vent. Rate : 57 BPM Atrial Rate : 57 BPM P-R Int : 182 ms QRS Dur : 90 ms QT Int : 466 ms P-R-T Axes : 37 32 22 degrees QTc Int : 453 ms Sinus bradycardia with sinus arrhythmia Otherwise normal ECG When compared with ECG of 28-JUL-2022 16:27, (Unconfirmed) premature ventricular complexes are no longer present Confirmed by Cade Echeverria (4) on 07/29/2022 7:48:22 AM Referred By: Confirmed By: Cade Echeverria
--- NOTE | 2022-07-29 04:42 | EKG ---
Test Reason : chest pain Blood Pressure : */* mmHG Vent. Rate : 55 BPM Atrial Rate : 55 BPM P-R Int : 204 ms QRS Dur : 90 ms QT Int : 506 ms P-R-T Axes : 64 38 23 degrees QTc Int : 484 ms Sinus bradycardia with PAC's Otherwise normal ECG When compared with ECG of 28-JUL-2022 21:33, (Unconfirmed) No significant change was found Confirmed by Cade Echeverria (4) on 07/29/2022 7:48:05 AM Referred By: Confirmed By: Cade Echeverria
[2022-07-29 06:09] LABS: BASOPHILS % (AUTO) 0.6 % (0.2-1.0); EOSINOPHILS # (AUTO) 0.2 x10^3/uL (0.0-0.2); HEMATOCRIT 41.7 % (36.0-47.0); HEMOGLOBIN 14.3 g/dL (12.0-16.0); LYMPHOCYTES # (AUTO) 1.7 X10^3/uL (1.3-2.9); LYMPHOCYTES % (AUTO) 24.4 % (21.0-51.0); MEAN CORPUSCULAR HEMOGLOBIN 29.1 pg (27.0-34.0); MEAN CORPUSCULAR HGB CONC 34.2 g/dL (33.0-35.0); MEAN CORPUSCULAR VOLUME 85.1 fL (80.0-100.0); MEAN PLATELET VOLUME 8.2 fL (7.4-11.0); MONOCYTES # (AUTO) 0.7 x10^3/uL (0.3-0.8); MONOCYTES % (AUTO) 9.6 % (0.0-13.0); NEUTROPHILS # (AUTO) 4.4 x10^3/uL (2.2-4.8); NEUTROPHILS % (AUTO) 62.4 % (42.0-75.0); PLATELET COUNT 154 X10^3/uL (150.0-450.0); RED CELL DISTRIBUTION WIDTH 14.3 % (11.6-16.5)
[2022-07-29 06:20] LABS: ALANINE AMINOTRANSFERASE 18 Units/L (12-78); ALKALINE PHOSPHATASE 61 Units/L (46-116); ASPARTATE AMINO TRANSFERASE 15 Units/L (15-37); BLOOD UREA NITROGEN 15 mg/dL (7-18); CALCIUM 8.2 mg/dL (8.5-10.1); CARBON DIOXIDE 32.8 mmol/L (21-32); CHLORIDE 100 mmol/L (98-107); COR NA(FOR HYPERGLY) 139 mmol/L (136-145); GLUCOSE 138 mg/dL (65-99); POTASSIUM 3.1 mmol/L (3.5-5.1); SODIUM 138 mmol/L (136-145); TOTAL PROTEIN 6.1 g/dL (6.4-8.2); eGFR NON BLACK RACES > 60 (>60)
--- NOTE | 2022-07-29 06:23 | RAD ---
HISTORYChest painSTUDYChest AP [id number]/2023FINDINGSHear t remains enlarged. Previously noted pulmonary venous congestion has resolved. No interstitial edema, alveolar edema, alveolar infiltrates, areas of consolidation, or pleural effusions identified.IMPRESSIONCardiomegaly without pulmonary venous congestion on today's examinationNo infiltratesElectronically signed by: YOLANDA XIONG (July 29, 2022 06:22:04)
[2022-07-29] MEDS ORDERED: K-RIDER 10 MEQ/NS 100 ML 10 MEQ/100 ML BAG IV PRN (06:25)
[2022-07-29] MEDS ORDERED: MICRO K EXTEN CAP 10 MEQ PO PRN (06:25)
[2022-07-29] MEDS ORDERED: K-DUR TAB 20 MEQ PO PRN (06:25)
[2022-07-29] MEDS ORDERED: KLOR-CON PO PRN (06:25)
[2022-07-29] MEDS: MAGNESIUM SULFATE 1 GRAM/100 mL PREMIX 1 G/100 ML BAG IV PRN ×2 (08:21→10:13)
[2022-07-29] MEDS: CELEXA PO SCH (08:22)
[2022-07-29] MEDS: PLAVIX PO SCH (08:22)
[2022-07-29] MEDS: PriLOSEC PO SCH (08:22)
[2022-07-29] MEDS: ATARAX TAB 25 MG PO SCH ×2 (08:22→20:34)
[2022-07-29] MEDS: RANEXA PO SCH ×2 (08:22→20:34)
[2022-07-29] MEDS: ASPIRIN EC 81 MG PO SCH (08:23)
[2022-07-29] MEDS: CLARITIN PO SCH (08:23)
[2022-07-29] MEDS: LASIX PO SCH (08:23)
[2022-07-29] MEDS: COZAAR PO SCH (08:23)
[2022-07-29] MEDS: COREG TAB 12.5 MG PO SCH ×2 (08:23→20:34)
[2022-07-29] MEDS: TOPAMAX PO SCH ×2 (08:24→20:35)
[2022-07-29] MEDS ORDERED: NS 100 ML IV 100 ML ONE (08:25)
[2022-07-29] MEDS: ZOFRAN INJ 4 MG VIAL IVP PRN (08:27)
[2022-07-29] MEDS: LOVENOX INJ 40 MG SYR SC SCH (10:14)
[2022-07-29] MEDS: FLONASE NASAL SPRAY ENOSTRIL SCH (10:14)
[2022-07-29] MEDS: NORCO 10/325 TAB PO PRN (18:32)
[2022-07-29] MEDS ORDERED: NS 1,000 ML IV 1,000 ML IV ONE (23:38)
[2022-07-29] MEDS ORDERED: NS 1,000 ML IV 1,000 ML ONE (23:42)
--- NOTE | 2022-07-29 23:53 | EKG ---
Test Reason : chest pain Blood Pressure : */* mmHG Vent. Rate : 58 BPM Atrial Rate : 58 BPM P-R Int : 204 ms QRS Dur : 86 ms QT Int : 462 ms P-R-T Axes : 58 37 23 degrees QTc Int : 453 ms Sinus bradycardia with premature atrial complexes Otherwise normal ECG When compared with ECG of 29-JUL-2022 04:33, premature atrial complexes are now present Confirmed by Cade Echeverria (4) on 07/31/2022 12:36:35 PM Referred By: Confirmed By: Cade Echeverria
[2022-07-30] MEDS: NORCO 10/325 TAB PO PRN ×2 (02:36→09:38)
[2022-07-30] MEDS: ZOFRAN INJ 4 MG VIAL IVP PRN (07:56)
[2022-07-30] MEDS: PLAVIX PO SCH (08:01)
[2022-07-30] MEDS: COZAAR PO SCH (08:01)
[2022-07-30] MEDS: ATARAX TAB 25 MG PO SCH ×2 (08:01→20:11)
[2022-07-30] MEDS: LOVENOX INJ 40 MG SYR SC SCH (08:01)
[2022-07-30] MEDS: PriLOSEC PO SCH (08:01)
[2022-07-30] MEDS: RANEXA PO SCH ×2 (08:01→20:10)
[2022-07-30] MEDS: ASPIRIN EC 81 MG PO SCH (08:01)
[2022-07-30] MEDS: TOPAMAX PO SCH ×2 (08:02→20:11)
[2022-07-30] MEDS: LASIX PO SCH (08:02)
[2022-07-30] MEDS: CLARITIN PO SCH (08:02)
[2022-07-30] MEDS: FLONASE NASAL SPRAY ENOSTRIL SCH (08:02)
[2022-07-30] MEDS: CELEXA PO SCH (08:02)
[2022-07-30] MEDS: COREG TAB 12.5 MG PO SCH ×2 (08:02→20:11)
--- NOTE | 2022-07-30 13:40 | RAD ---
HISTORYABD PAINSTUDYKUBCOMPARISONNone availableTECHNIQUEAP supine and upright projections, 2 viewsFINDINGSGas and stool in non-distended colon and rectum.No gross free.No abnormal calcifications.No acute osseous abnormality.Imaged portion of the lungs are clear.IMPRESSIONNo acute intra-abdominal abnormality detected.Electronically signed by: Robb Pang (July 30, 2022 13:38:36)
[2022-07-30] MEDS ORDERED: TYLENOL 500 MG TAB EXTRA STRENGTH PO ONE (15:44)
[2022-07-30] MEDS ORDERED: LINZESS PO ONE (18:13)
[2022-07-31] MEDS: ZOFRAN INJ 4 MG VIAL IVP PRN (06:08)
[2022-07-31 06:28] LABS: BASOPHILS # (AUTO) 0.1 X10^3/uL (0.0-0.1); BASOPHILS % (AUTO) 0.7 % (0.2-1.0); EOSINOPHILS # (AUTO) 0.2 x10^3/uL (0.0-0.2); EOSINOPHILS % (AUTO) 2.2 % (0.9-2.9); HEMATOCRIT 39.5 % (36.0-47.0); HEMOGLOBIN 13.4 g/dL (12.0-16.0); LYMPHOCYTES # (AUTO) 2.2 X10^3/uL (1.3-2.9); LYMPHOCYTES % (AUTO) 23.9 % (21.0-51.0); MEAN CORPUSCULAR HEMOGLOBIN 29.4 pg (27.0-34.0); MEAN CORPUSCULAR VOLUME 86.4 fL (80.0-100.0); MEAN PLATELET VOLUME 8.3 fL (7.4-11.0); MONOCYTES # (AUTO) 0.7 x10^3/uL (0.3-0.8); MONOCYTES % (AUTO) 7.7 % (0.0-13.0); NEUTROPHILS % (AUTO) 65.5 % (42.0-75.0); PLATELET COUNT 140 X10^3/uL (150.0-450.0); RED BLOOD COUNT 4.58 X10^6/uL (3.5-5.4); RED CELL DISTRIBUTION WIDTH 14.3 % (11.6-16.5); WHITE BLOOD COUNT 9.2 X10^3/uL (3.6-10.0)
[2022-07-31 06:41] LABS: ALANINE AMINOTRANSFERASE 16 Units/L (12-78); ALBUMIN 2.7 g/dL (3.4-5.0); ALKALINE PHOSPHATASE 52 Units/L (46-116); ASPARTATE AMINO TRANSFERASE 21 Units/L (15-37); BLOOD UREA NITROGEN 24 mg/dL (7-18); CALCIUM 8.1 mg/dL (8.5-10.1); CARBON DIOXIDE 29.5 mmol/L (21-32); CHLORIDE 104 mmol/L (98-107); COR CA(FOR HYPOALB) 9.1 mg/dL (8.5-10.1); COR NA(FOR HYPERGLY) 141 mmol/L (136-145); CREATININE 0.99 mg/dL (0.55-1.02); GLUCOSE 160 mg/dL (65-99); POTASSIUM 4.5 mmol/L (3.5-5.1); SODIUM 140 mmol/L (136-145); TOTAL PROTEIN 5.7 g/dL (6.4-8.2); eGFR NON BLACK RACES 58 (>60)
[2022-07-31 07:08] LABS: HEMOGLOBIN A1C 6.1 %
[2022-07-31 07:24] LABS: PLATELET MORPHOLOGY COMMENT NORMAL (NORMAL)
[2022-07-31] MEDS: PriLOSEC PO SCH (08:45)
[2022-07-31] MEDS: CELEXA PO SCH (08:46)
[2022-07-31] MEDS: ASPIRIN EC 81 MG PO SCH (08:46)
[2022-07-31] MEDS: ATARAX TAB 25 MG PO SCH (08:46)
[2022-07-31] MEDS: CLARITIN PO SCH (08:46)
[2022-07-31] MEDS: RANEXA PO SCH (08:46)
[2022-07-31] MEDS: PLAVIX PO SCH (08:47)
[2022-07-31] MEDS: COREG TAB 12.5 MG PO SCH (08:47)
[2022-07-31] MEDS: TOPAMAX PO SCH (08:47)
[2022-07-31] MEDS: COZAAR PO SCH (08:48)
[2022-07-31] MEDS: LOVENOX INJ 40 MG SYR SC SCH (08:48)
[2022-07-31] MEDS: FLONASE NASAL SPRAY ENOSTRIL SCH (08:48)
[2022-07-31] MEDS ORDERED: LASIX PO SCH (09:00)
[2022-07-31 10:58] VITALS: BP 113/58
== END 2022-07-31 10:30 | disposition home or self-care (01) ==
LOC: ER 09:31 → MED/SURG 09:31
PROVIDERS: ADMIT Family Medicine; ATTEND Obstetrics & Gynecology Obstetrics
DX: I25.10 Atherosclerotic heart disease of native coronary artery without angina pectoris; K59.09 Other constipation; R07.89 Other chest pain; R51.9 Headache, unspecified; R26.89 Other abnormalities of gait and mobility; R73.09 Other abnormal glucose; M25.512 Pain in left shoulder; R11.2 Nausea with vomiting, unspecified; I50.9 Heart failure, unspecified; R10.84 Generalized abdominal pain; I11.0 Hypertensive heart disease with heart failure; R06.02 Shortness of breath

== ENCOUNTER 2022-08-22 00:15 | Observation (INO) ==
--- NOTE | 2022-08-22 00:18 | DR.SOBA ---
HPI Time Seen Time Seen by Provider: 08/22/22 00:18 Complaints Chief Complaint Doctors Comments: Patient has h/o COPD and is 02 dependent she has been feeling sob for 2 days and on her 2L the 02 sat at home was in the 70's. Patient awoke tonight feeling SOB and EMS was called.She recieved 2 duonebs enroute to the hospital. Patient states that she lives with her son. She is feeling weak and sob.Patient has had cough productive of sputum she does not know what color it is. Patient denies: hemoptysis,headache,syncope,fever. PMH PMH Past Medical History: Anemia, Anxiety, Arthritis, CHF, COPD, Coronary Artery Disease, CVA, Depression, Diabetes, Dyslipidemia, GERD, Hypertension and [place] Past Surgical History: Yes Surgical History: Hysterectomy and Ortho Surgery Family History Family Medical History: Cancer, [place], Coronary Artery Disease, Heart Failure and Hypertension Social History Do you use any recreational Drugs:: No ROS Review of Systems Constitutional: Weakness Eyes: No Symptoms Reported ENTM: No Symptoms Reported Respiratoy: Productive Cough and Short of Breath; negative Hemoptysis Cardiovascular: No Symptoms Reported; negative Syncope Gastrointestinal/Abdominal: negative Diarrhea, Nausea or Vomiting Genitourinary: No Symptoms Reported Neurological: No Symptoms Reported Musculoskeletal: No Symptoms Reported Integumentary: No Symptoms Reported Hematologic/Lymphatic: No Symptoms Reported Endocrine: No Symptoms Reported Psychiatric: No Symptoms Reported All Other Systems: Reviewed and Negative PE Vital Signs Vitals: Temperature 98.2 F Pulse Rate 74 Pulse Rate 77 Respiratory Rate 22 Blood Pressure [Right Arm] 129/70 Blood Pressure 157/86 Blood Pressure 159/72 O2 Sat by Pulse Oximetry 95 O2 Sat by Pulse Oximetry 98 General Limitations: No Limitations General Appearance: Alert and In No Apparent Distress Head Head Exam: Normal Inspection Eyes Eye exam: Normal Appearance ENT ENT Exam: Normal Exam Neck Neck Exam: Normal Inspection Chest Chest Inspection: Normal Inspection Respiratory Respiratory Exam: Normal Lung Sounds Bilat Respiratory Exam: Bilateral: Decreased Breath Sounds Cardiovascular Cardiovascular Exam: Regular Rate and Normal Rhythm Abdominal Exam Abdominal Exam: Normal Inspection, Normal Bowel Sounds and Soft Extremities Extremities Exam: Normal Inspection Back Back Exam: Normal Inspection Neurologic Neurological Exam: Alert and Oriented X3 Psychiatric Psychiatric Exam: Normal Affect and Normal Mood Skin Skin Exam: Warm, Dry, Intact and Normal Color COURSE Treatment Treatment: Patient was given solumedrol 125mg iv in the ED and CXR revealed bilateral infiltrates.She was given levaquin 750mg iv.Patient with VS 141/63/hr 60 /02 sat on 2L currently 97%. Patient'sABG on 2L revealed ph 7.39/PC02 52/P02 69/02 sat 93%. Patient has been accepted By Dr Austin to his service. [facility] Labs Reviewed Laboratory Results Reviewed?: Yes Result Diagrams: 08/22/22 00:33 08/22/22 12:30 Laboratory: WBC 9.6 X10^3/uL (3.6-10.0) 08/22/22 00:33 RBC 4.83 X10^6/uL (3.5-5.4) 08/22/22 00:33 Hgb 14.1 g/dL (12.0-16.0) 08/22/22 00:33 Hct 41.3 % (36.0-47.0) 08/22/22 00:33 MCV 85.6 fL (80.0-100.0) 08/22/22 00:33 MCH 29.2 pg (27.0-34.0) 08/22/22 00:33 MCHC 34.1 g/dL (33.0-35.0) 08/22/22 00:33 RDW 14.0 % (11.6-16.5) 08/22/22 00:33 Plt Count 150 X10^3/uL (150.0-450.0) 08/22/22 00:33 MPV 7.8 fL (7.4-11.0) 08/22/22 00:33 Neut % (Auto) 59.7 % (42.0-75.0) 08/22/22 00:33 Lymph % (Auto) 27.9 % (21.0-51.0) 08/22/22 00:33 [place] % (Auto) 8.6 % (0.0-13.0) 08/22/22 00:33 Eos % (Auto) 3.1 % (0.9-2.9) H 08/22/22 00:33 Baso % (Auto) 0.7 % (0.2-1.0) 08/22/22 00:33 Neut # (Auto) 5.7 x10^3/uL (2.2-4.8) H 08/22/22 00:33 Lymph # (Auto) 2.7 X10^3/uL (1.3-2.9) 08/22/22 00:33 [place] # (Auto) 0.8 x10^3/uL (0.3-0.8) 08/22/22 00:33 Eos # (Auto) 0.3 x10^3/uL (0.0-0.2) H 08/22/22 00:33 Baso # (Auto) 0.1 X10^3/uL (0.0-0.1) 08/22/22 00:33 Absolute Nucleated RBC 0.1 /100WBC 08/22/22 00:33 Sample Site Rr 08/22/22 00:30 ABG pH 7.390 (7.35-7.45) 08/22/22 00:30 ABG pCO2 52.0 mmHg (35.0-45.0) H* 08/22/22 00:30 ABG pO2 69.0 mmHg (80.0-100.0) L 08/22/22 00:30 ABG HCO3 31.5 mmol/L (22-26) H* 08/22/22 00:30 ABG O2 Saturation 93.0 % (90-100) 08/22/22 00:30 ABG Base Excess 5.3 mmol/L (-2.0-2.0) H 08/22/22 00:30 Calixto Test Pos 08/22/22 00:30 A-a Gradient 66.0 mmHg 08/22/22 00:30 FiO2 28.0 08/22/22 00:30 Blood Gas Comments [facility] well sw 08/22/22 00:30 Sodium 144 mmol/L (136-145) 08/22/22 00:33 Corrected Sodium 145 mmol/L (136-145) 08/22/22 00:33 Potassium 3.3 mmol/L (3.5-5.1) L 08/22/22 00:33 Chloride 105 mmol/L (98-107) 08/22/22 00:33 Carbon Dioxide 33.9 mmol/L (21-32) H 08/22/22 00:33 BUN 7 mg/dL (7-18) 08/22/22 00:33 Creatinine 0.78 mg/dL (0.55-1.02) 08/22/22 00:33 Est GFR (MDRD) Af Amer > 60 (>60) 08/22/22 00:33 Est GFR (MDRD) Non-Af > 60 (>60) 08/22/22 00:33 Glucose 121 mg/dL (65-99) H 08/22/22 00:33 Calcium 8.1 mg/dL (8.5-10.1) L 08/22/22 00:33 Corrected Calcium 8.9 mg/dL (8.5-10.1) 08/22/22 00:33 Magnesium 1.7 mg/dL (2.0-2.9) L 08/22/22 00:33 Total Bilirubin 0.50 mg/dL (0.2-1.0) 08/22/22 00:33 AST 15 Units/L (15-37) 08/22/22 00:33 ALT 19 Units/L (12-78) 08/22/22 00:33 Alkaline Phosphatase 61 Units/L (46-116) 08/22/22 00:33 Creatine Kinase 53 Units/L (26-192) 08/22/22 00:33 Troponin I High Sens 18.1 ng/L (4.0-60.0) 08/22/22 00:33 Total Protein 6.2 g/dL (6.4-8.2) L 08/22/22 00:33 Albumin 3.0 g/dL (3.4-5.0) L 08/22/22 00:33 Globulin 3.2 g/dL (2.5-4.5) 08/22/22 00:33 Albumin/Globulin Ratio 0.9 Ratio (1.1-2.1) L 08/22/22 00:33 XRAY XRAY Interpreted by: Radiologist X-ray Results: HISTORY PT C/O SOB AND NAUSEA AND VOMITING.br [place], CAD, HTN, DM, CVA, COPD, GERD, CHF, ANEMIA SX: HYST, ORTHO STUDY CHEST, 1 VIEW COMPARISON 08/10/2022 FINDINGS The trachea is midline. The cardiac silhouette is mildly enlarged.. Chronic appearing increased interstitial markings throughout the lungs. The lungs are clear of acute consolidation. No pleural effusion pneumothorax. The bony thorax is unremarkable. IMPRESSION Mild cardiomegaly No active cardiopulmonary disease. Electronically signed by: Dat Fong (Aug 22, 2022 01:49:38) EKG Compared to prior EKG Dated: 08/22/22 Rate: 68 Rhythm: NSR and PVCs (occasional) Opioid Opioid Risk Tool Age (Jose box if 16-45): No History of Preadolescent Sexual Abuse: No Total: 0 Total Score Risk Category: Low Risk Copyright: Pierre CASTRO predicting aberrant behaviors Discharge Plan Diagnosis Discharge Problem: COPD exacerbation Discharge Plan Patient Disposition: 09 ADMITTED INPATIENT Condition: Stable
[2022-08-22] MEDS ORDERED: SOLU-Medrol 125 MG VIAL IVP ONE (00:31)
[2022-08-22] MEDS ORDERED: SOLU-Medrol 125 MG VIAL ONE (00:32)
--- NOTE | 2022-08-22 00:41 | EKG ---
Test Reason : SOB Blood Pressure : */* mmHG Vent. Rate : 68 BPM Atrial Rate : 68 BPM P-R Int : 194 ms QRS Dur : 86 ms QT Int : 434 ms P-R-T Axes : 39 46 10 degrees QTc Int : 461 ms Sinus rhythm with occasional premature ventricular complexes Otherwise normal ECG When compared with ECG of 10-AUG-2022 14:17, No significant change was found Confirmed by Cade Echeverria ([id number]) on 08/23/2022 4:38:59 PM Referred By: Confirmed By: Cade Echeverria
[2022-08-22 00:50] LABS: BASOPHILS # (AUTO) 0.1 X10^3/uL (0.0-0.1); BASOPHILS % (AUTO) 0.7 % (0.2-1.0); EOSINOPHILS # (AUTO) 0.3 x10^3/uL (0.0-0.2); EOSINOPHILS % (AUTO) 3.1 % (0.9-2.9); HEMATOCRIT 41.3 % (36.0-47.0); HEMOGLOBIN 14.1 g/dL (12.0-16.0); LYMPHOCYTES # (AUTO) 2.7 X10^3/uL (1.3-2.9); LYMPHOCYTES % (AUTO) 27.9 % (21.0-51.0); MEAN CORPUSCULAR HEMOGLOBIN 29.2 pg (27.0-34.0); MEAN CORPUSCULAR HGB CONC 34.1 g/dL (33.0-35.0); MEAN CORPUSCULAR VOLUME 85.6 fL (80.0-100.0); MEAN PLATELET VOLUME 7.8 fL (7.4-11.0); MONOCYTES # (AUTO) 0.8 x10^3/uL (0.3-0.8); MONOCYTES % (AUTO) 8.6 % (0.0-13.0); NEUTROPHILS # (AUTO) 5.7 x10^3/uL (2.2-4.8); NEUTROPHILS % (AUTO) 59.7 % (42.0-75.0); PLATELET COUNT 150 X10^3/uL (150.0-450.0); RED BLOOD COUNT 4.83 X10^6/uL (3.5-5.4); WHITE BLOOD COUNT 9.6 X10^3/uL (3.6-10.0)
[2022-08-22 00:53] LABS: ABG BASE EXCESS 5.3 mmol/L (-2.0-2.0)
[2022-08-22 00:54] LABS: ABG ALLEN TEST POS; ABG HCO3 31.5 mmol/L (22-26)
[2022-08-22 01:09] LABS: ALANINE AMINOTRANSFERASE 19 Units/L (12-78); ALKALINE PHOSPHATASE 61 Units/L (46-116); ASPARTATE AMINO TRANSFERASE 15 Units/L (15-37); BLOOD UREA NITROGEN 7 mg/dL (7-18); CALCIUM 8.1 mg/dL (8.5-10.1); CARBON DIOXIDE 33.9 mmol/L (21-32); CHLORIDE 105 mmol/L (98-107); COR CA(FOR HYPOALB) 8.9 mg/dL (8.5-10.1); COR NA(FOR HYPERGLY) 145 mmol/L (136-145); CREATINE KINASE 53 Units/L (26-192); CREATININE 0.78 mg/dL (0.55-1.02); GLUCOSE 121 mg/dL (65-99); POTASSIUM 3.3 mmol/L (3.5-5.1); SODIUM 144 mmol/L (136-145); TOTAL PROTEIN 6.2 g/dL (6.4-8.2); eGFR NON BLACK RACES > 60 (>60)
[2022-08-22] MEDS ORDERED: LEVAQUIN PREMIX IV 750 MG 750 MG/150 ML BAG IV ONE (01:26)
[2022-08-22] MEDS ORDERED: TYLENOL 325 MG TAB PO ONE ×2 (01:33→01:38)
--- NOTE | 2022-08-22 01:51 | RAD ---
HISTORYPT C/O SOB AND NAUSEA AND VOMITING.br [place], CAD, HTN, DM, CVA, COPD, GERD, CHF, ANEMIA SX: HYST, ORTHOSTUDYCHEST, 1 [id number]/2023FINDINGSThe trachea is midline. The cardiac silhouette is mildly enlarged.. Chronic appearing increased interstitial markings throughout the lungs. The lungs are clear of acute consolidation. No pleural effusion pneumothorax. The bony thorax is unremarkable.IMPRESSIONMild cardiomegalyNo active cardiopulmonary disease.Electronically signed by: Dat Fong (Aug 22, 2022 01:49:38)
[2022-08-22] MEDS ORDERED: K-DUR TAB 20 MEQ PO ONE ×2 (01:57→01:58)
[2022-08-22] MEDS ORDERED: ANTIVERT TAB 25 MG PO PRN (04:59)
[2022-08-22] MEDS ORDERED: NITROSTAT SL SCH (04:59)
[2022-08-22] MEDS ORDERED: DUONEB 0.5 MG/3 MG (3 mL) NEB SCH (05:00)
[2022-08-22] MEDS: DUONEB 0.5 MG/3 MG (3 mL) NEB SCH ×5 (05:19→20:52)
[2022-08-22] MEDS ORDERED: MICRO K EXTEN CAP 10 MEQ PO PRN (05:40)
[2022-08-22] MEDS ORDERED: POTASSIUM CHL 40 MEQ/NS 0.45% 500 ML IV PRN (05:40)
[2022-08-22] MEDS ORDERED: KLOR-CON PO PRN (05:40)
[2022-08-22] MEDS ORDERED: K-RIDER 10 MEQ/NS 100 ML 10 MEQ/100 ML BAG IV PRN (05:40)
[2022-08-22] MEDS ORDERED: K-DUR TAB 20 MEQ PO PRN (05:40)
[2022-08-22] MEDS ORDERED: POTASSIUM CHL 60 MEQ/NS 0.45% 500 ML IV PRN (05:40)
[2022-08-22] MEDS ORDERED: POTASSIUM CHLORIDE LIQ 20 MEQ UDC PO PRN (05:40)
[2022-08-22 06:01] VITALS: BMI 34.5
[2022-08-22] MEDS: PHENERGAN TAB 25 MG PO PRN ×2 (06:25→20:34)
[2022-08-22] MEDS: MAGNESIUM SULFATE 1 GRAM/100 mL PREMIX 1 G/100 ML BAG IV PRN ×2 (06:38→09:14)
[2022-08-22 06:45] LABS: POTASSIUM 3.7 mmol/L (3.5-5.1)
[2022-08-22] MEDS: PULMICORT NEB TX 0.5 MG NEB SCH ×2 (08:09→20:53)
[2022-08-22] MEDS ORDERED: LASIX IVP ONE ×3 (08:41→18:00)
[2022-08-22] MEDS ORDERED: PULMICORT NEB TX 0.5 MG NEB SCH (09:00)
[2022-08-22] MEDS ORDERED: LASIX PO SCH (09:00)
[2022-08-22] MEDS ORDERED: REQUIP PO PRN (09:00)
[2022-08-22] MEDS ORDERED: LEVAQUIN PREMIX IV 750 MG 750 MG/150 ML BAG IV SCH (09:00)
[2022-08-22] MEDS ORDERED: LEXAPRO ONE (09:07)
[2022-08-22] MEDS: FLONASE NASAL SPRAY ENOSTRIL SCH (09:11)
[2022-08-22] MEDS: NORCO 10/325 TAB PO PRN ×2 (09:11→20:33)
[2022-08-22] MEDS: PriLOSEC PO SCH (09:11)
[2022-08-22] MEDS: COLACE CAP 100 MG PO SCH ×2 (09:12→09:15)
[2022-08-22] MEDS: ASPIRIN EC 81 MG PO SCH (09:12)
[2022-08-22] MEDS: COZAAR PO SCH (09:13)
[2022-08-22] MEDS: RANEXA PO SCH ×2 (09:13→20:33)
[2022-08-22] MEDS: CLARITIN PO SCH (09:13)
[2022-08-22] MEDS: PLAVIX PO SCH (09:13)
[2022-08-22] MEDS: COREG TAB 12.5 MG PO SCH ×2 (09:13→20:32)
[2022-08-22] MEDS: LEXAPRO PO SCH (09:14)
[2022-08-22] MEDS ORDERED: LASIX ONE (10:56)
[2022-08-22] MEDS ORDERED: ZOFRAN TAB 4 MG PO PRN (11:00)
[2022-08-22] MEDS: LOVENOX INJ 40 MG SYR SC SCH (11:03)
[2022-08-23] MEDS ORDERED: LEVAQUIN PREMIX IV 750 MG 750 MG/150 ML BAG IV SCH (03:00)
[2022-08-23] MEDS: NORCO 10/325 TAB PO PRN (04:53)
[2022-08-23] MEDS: DUONEB 0.5 MG/3 MG (3 mL) NEB SCH ×3 (05:30→08:28)
[2022-08-23 05:31] LABS: BASOPHILS % (AUTO) 0.1 % (0.2-1.0); EOSINOPHILS % (AUTO) 0.1 % (0.9-2.9); HEMATOCRIT 40.2 % (36.0-47.0); HEMOGLOBIN 13.6 g/dL (12.0-16.0); LYMPHOCYTES # (AUTO) 1.4 X10^3/uL (1.3-2.9); LYMPHOCYTES % (AUTO) 12.2 % (21.0-51.0); MEAN CORPUSCULAR HEMOGLOBIN 29.2 pg (27.0-34.0); MEAN CORPUSCULAR HGB CONC 33.8 g/dL (33.0-35.0); MEAN CORPUSCULAR VOLUME 86.2 fL (80.0-100.0); MEAN PLATELET VOLUME 8.5 fL (7.4-11.0); MONOCYTES # (AUTO) 0.8 x10^3/uL (0.3-0.8); MONOCYTES % (AUTO) 6.5 % (0.0-13.0); NEUTROPHILS # (AUTO) 9.6 x10^3/uL (2.2-4.8); NEUTROPHILS % (AUTO) 81.1 % (42.0-75.0); PLATELET COUNT 161 X10^3/uL (150.0-450.0); RED BLOOD COUNT 4.66 X10^6/uL (3.5-5.4); RED CELL DISTRIBUTION WIDTH 13.6 % (11.6-16.5); WHITE BLOOD COUNT 11.8 X10^3/uL (3.6-10.0)
[2022-08-23 05:45] LABS: ALANINE AMINOTRANSFERASE 19 Units/L (12-78); ALBUMIN 2.7 g/dL (3.4-5.0); ALKALINE PHOSPHATASE 58 Units/L (46-116); ASPARTATE AMINO TRANSFERASE 11 Units/L (15-37); BLOOD UREA NITROGEN 13 mg/dL (7-18); CALCIUM 8.2 mg/dL (8.5-10.1); CARBON DIOXIDE 32.6 mmol/L (21-32); CHLORIDE 104 mmol/L (98-107); COR CA(FOR HYPOALB) 9.2 mg/dL (8.5-10.1); COR NA(FOR HYPERGLY) 143 mmol/L (136-145); CREATININE 0.85 mg/dL (0.55-1.02); GLUCOSE 168 mg/dL (65-99); SODIUM 141 mmol/L (136-145); eGFR NON BLACK RACES > 60 (>60)
[2022-08-23 06:00] VITALS: O2SAT 94
[2022-08-23] MEDS: PULMICORT NEB TX 0.5 MG NEB SCH (08:28)
[2022-08-23 08:46] VITALS: BP 146/89; PULSE 55; TEMP 97.5
[2022-08-23] MEDS ORDERED: LEXAPRO ONE (08:49)
[2022-08-23] MEDS: RANEXA PO SCH (08:51)
[2022-08-23] MEDS: COREG TAB 12.5 MG PO SCH (08:51)
[2022-08-23] MEDS: LEXAPRO PO SCH (08:51)
[2022-08-23] MEDS: PriLOSEC PO SCH (08:51)
[2022-08-23] MEDS: CLARITIN PO SCH (08:51)
[2022-08-23] MEDS: PLAVIX PO SCH (08:51)
[2022-08-23] MEDS: ASPIRIN EC 81 MG PO SCH (08:52)
[2022-08-23] MEDS: COZAAR PO SCH (08:52)
[2022-08-23] MEDS: LOVENOX INJ 40 MG SYR SC SCH (08:52)
[2022-08-23] MEDS: PHENERGAN TAB 25 MG PO PRN (09:13)
[2022-08-23] MEDS: FLONASE NASAL SPRAY ENOSTRIL SCH (09:13)
[2022-08-23] MEDS: COLACE CAP 100 MG PO SCH (09:13)
== END 2022-08-23 11:40 | disposition home health service (06) ==
LOC: MED/SURG 00:15 → ER 00:15 → MED/SURG 04:51
PROVIDERS: ADMIT Internal Medicine; ATTEND Obstetrics & Gynecology Obstetrics
DX: R26.89 Other abnormalities of gait and mobility; I11.0 Hypertensive heart disease with heart failure; J44.1 Chronic obstructive pulmonary disease with (acute) exacerbation; F41.8 Other specified anxiety disorders; E78.2 Mixed hyperlipidemia; I25.10 Atherosclerotic heart disease of native coronary artery without angina pectoris; E83.42 Hypomagnesemia; I50.9 Heart failure, unspecified; Z99.81 Dependence on supplemental oxygen; E11.65 Type 2 diabetes mellitus with hyperglycemia; K21.9 Gastro-esophageal reflux disease without esophagitis; R06.02 Shortness of breath

== ENCOUNTER 2022-10-06 19:47 | Observation (INO) ==
--- NOTE | 2022-10-06 20:25 | ED.ABDFE ---
HPI Time Seen Time Seen by Provider: 10/06/22 20:25 PCP Primary Care Physician: DANIELSON Martha Doctors Chief Complaint Comments: 77 y/o female brought in for evaluation by EMS. Seen here by me 6 days ago, with dyspnea and diarrhea then. Was d/c'd to home, with mild CHF, was to increase her daily lasix. Started with vomiting 4 days ago. States she can't keep food, liquids or medicines down. Son states he has fixed her chicken soup, as well as other things, pt can only takea few bites before she throws it up. Still with some diarrhea. No significant abdominal pain. Hsaving generalized weakness, and dyspnea with exertion. Urinating small amounts frequently. Chief Complaint:: PT IN ED VIA STRETCHER PER [facility] WITH C/O N/V/D SINCE FRIDAY. STATES SHE HAS NOT BEEN ABLE TO TAKE HER MEDICINES BECAUSE OF THE VOMITING. COVID-19 Coronavirus risk:travel/contact w/high risk person: No Has patient experienced Coronavirus symptoms: No Reviewed Nurses Notes Review: Yes Source History Provided: Patient, Family Member (son) and EMS Mode of arrival Mode of Arrival: Stretcher Timing Onset of Chief Complaint: 09/30/22 PMH PMH Past Medical History: Yes Past Medical History: Anemia, Anxiety, Arthritis, CHF, COPD, Coronary Artery Disease, CVA, Depression, Diabetes, Dyslipidemia, GERD, Hypertension and [place] Past Surgical History: Yes Surgical History: Hysterectomy and Ortho Surgery Family History History of Family Medical Conditions: Yes Family Medical History: Diabetes Mellitus, Cancer, [place], Coronary Artery Disease and Hypertension Social History Does patient currently use any type of tobacco product: No Have you used tobacco products in the last 12 months: No Type of Tobacco Use: None Does any household member use tobacco: No Alcohol Use: None Do you use any recreational Drugs:: No Lives With: Family Lives Where: Home Travel Risk Coronavirus risk:travel/contact w/high risk person: No Has patient experienced Coronavirus symptoms: No Infectious screening In the last 2 months have you had wt loss of >10#?: NO Have you had fever, night sweats or hemotysis?: No Have you traveled outside the country in the last 6 months?: No Isolation: Standard ROS Review of Systems Constitutional: Weakness Eyes: No Symptoms Reported ENTM: No Symptoms Reported Respiratoy: Short of Breath Cardiovascular: No Symptoms Reported Gastrointestinal/Abdominal: See HPI Genitourinary: Frequency Neurological: Weakness Musculoskeletal: No Symptoms Reported Integumentary: No Symptoms Reported All Other Systems: Reviewed and Negative PE Vital Signs Vitals: Vital Signs Temperature 98.4 F Pulse Rate 74 Pulse Rate 59 Pulse Rate 53 Pulse Rate 53 Pulse Rate 55 Pulse Rate 58 Pulse Rate 67 Pulse Rate 64 Pulse Rate 59 Pulse Rate 53 Pulse Rate 63 Pulse Rate 51 Pulse Rate 53 Pulse Rate 48 Pulse Rate 48 Respiratory Rate 20 Respiratory Rate 20 Blood Pressure 127/66 Blood Pressure 127/89 Blood Pressure 129/67 Blood Pressure 174/83 O2 Sat by Pulse Oximetry 99 O2 Sat by Pulse Oximetry 97 O2 Sat by Pulse Oximetry 99 O2 Sat by Pulse Oximetry 99 O2 Sat by Pulse Oximetry 99 O2 Sat by Pulse Oximetry 98 O2 Sat by Pulse Oximetry 99 O2 Sat by Pulse Oximetry 98 O2 Sat by Pulse Oximetry 100 O2 Sat by Pulse Oximetry 98 O2 Sat by Pulse Oximetry 98 O2 Sat by Pulse Oximetry 99 O2 Sat by Pulse Oximetry 95 O2 Sat by Pulse Oximetry 97 O2 Sat by Pulse Oximetry 98 General General Appearance: Alert and In No Apparent Distress Eyes Eye exam: PERRL and EOMI ENT ENT Exam: Mucous Membranes Moist Neck Neck Exam: Normal Inspection; negative Tenderness Respiratory Respiratory Exam: Normal Lung Sounds Bilat; negative Accessory Muscle Use or Respiratory Distress Cardiovascular Cardiovascular Exam: Regular Rate, Normal Rhythm and Normal Heart Sounds Abdominal Exam Abdominal Exam: Normal Bowel Sounds and Soft; negative Tenderness, Guarding or Rebound Back Back Exam: Normal Inspection; negative (R) CVA Tenderness or (L) CVA Tenderness Extremeties Extremities Exam: Normal Inspection Neurologic Neurological Exam: Alert, Oriented X3 and CN II-XII Intact; negative Motor Sensory Deficit Skin Skin Exam: Warm, Dry and Other (good skin turgor) COURSE Treatment Treatment: 77 y/o female with persistent vomiting x 4 days. Stays has not been able to eat, drink or take her meds. Appears well hydrated clinically. W/u initiated. Given IV fluids, zofran, protonix. 2100 - c/o L shoulder pain, givne IV toradol. 2216 - CBC, CMP acceptable, no signs for GERA. U/A with 10-20 W BCs/hpf, 2+ juan est. Will give IV rocephin for UTI. Recommend observation admission to ensure hydration, treat her vomiting, and treat her UTI. Dr Henrietta lucas, accepts the admission. [facility] Labs Reviewed Laboratory Results Reviewed?: Yes Result Diagrams: 10/06/22 21:00 10/06/22 21:00 Laboratory: WBC 6.6 X10^3/uL (3.6-10.0) 10/06/22 21:00 RBC 5.03 X10^6/uL (3.5-5.4) 10/06/22 21:00 Hgb 14.4 g/dL (12.0-16.0) 10/06/22 21:00 Hct 42.9 % (36.0-47.0) 10/06/22 21:00 MCV 85.2 fL (80.0-100.0) 10/06/22 21:00 MCH 28.7 pg (27.0-34.0) 10/06/22 21:00 MCHC 33.6 g/dL (33.0-35.0) 10/06/22 21:00 RDW 13.8 % (11.6-16.5) 10/06/22 21:00 Plt Count 173 X10^3/uL (150.0-450.0) 10/06/22 21:00 MPV 7.9 fL (7.4-11.0) 10/06/22 21:00 Neut % (Auto) 61.7 % (42.0-75.0) 10/06/22 21:00 Lymph % (Auto) 28.8 % (21.0-51.0) 10/06/22 21:00 [place] % (Auto) 6.8 % (0.0-13.0) 10/06/22 21:00 Eos % (Auto) 2.1 % (0.9-2.9) 10/06/22 21:00 Baso % (Auto) 0.6 % (0.2-1.0) 10/06/22 21:00 Neut # (Auto) 4.1 x10^3/uL (2.2-4.8) 10/06/22 21:00 Lymph # (Auto) 1.9 X10^3/uL (1.3-2.9) 10/06/22 21:00 [place] # (Auto) 0.4 x10^3/uL (0.3-0.8) 10/06/22 21:00 Eos # (Auto) 0.1 x10^3/uL (0.0-0.2) 10/06/22 21:00 Baso # (Auto) 0.0 X10^3/uL (0.0-0.1) 10/06/22 21:00 Absolute Nucleated RBC 0.1 /100WBC 10/06/22 21:00 Sodium 145 mmol/L (136-145) 10/06/22 21:00 Corrected Sodium TNP 10/06/22 21:00 Potassium 3.2 mmol/L (3.5-5.1) L 10/06/22 21:00 Chloride 104 mmol/L (98-107) 10/06/22 21:00 Carbon Dioxide 32.6 mmol/L (21-32) H 10/06/22 21:00 BUN 7 mg/dL (7-18) 10/06/22 21:00 Creatinine 0.83 mg/dL (0.55-1.02) 10/06/22 21:00 Est GFR (MDRD) Af Amer > 60 (>60) 10/06/22 21:00 Est GFR (MDRD) Non-Af > 60 (>60) 10/06/22 21:00 Glucose 108 mg/dL (65-99) H 10/06/22 21:00 Calcium 9.1 mg/dL (8.5-10.1) 10/06/22 21:00 Corrected Calcium TNP 10/06/22 21:00 Total Bilirubin 0.60 mg/dL (0.2-1.0) 10/06/22 21:00 AST 21 Units/L (15-37) 10/06/22 21:00 ALT 24 Units/L (12-78) 10/06/22 21:00 Alkaline Phosphatase 75 Units/L (46-116) 10/06/22 21:00 Troponin I High Sens 25.3 ng/L (4.0-60.0) 10/06/22 21:00 Total Protein 6.6 g/dL (6.4-8.2) 10/06/22 21:00 Albumin 3.4 g/dL (3.4-5.0) 10/06/22 21:00 Globulin 3.2 g/dL (2.5-4.5) 10/06/22 21:00 Albumin/Globulin Ratio 1.1 Ratio (1.1-2.1) 10/06/22 21:00 Lipase 59 Units/L (73-393) L 10/06/22 21:00 Specimen Type Catherized urine 10/06/22 21:36 Urine Color Pale yellow (YELLOW) 10/06/22 21:36 Urine Appearance Clear (CLEAR) 10/06/22 21:36 Urine pH 8.0 (5.0 - 8.0) 10/06/22 21:36 Ur Specific [place] 1.010 (1.000-1.030) 10/06/22 21:36 Urine Protein Negative (NEGATIVE) 10/06/22 21:36 Urine Glucose (UA) Negative (NEGATIVE) 10/06/22 21:36 Urine Ketones Negative (NEGATIVE) 10/06/22 21:36 Urine Blood Negative (NEGATIVE) 10/06/22 21:36 Urine Nitrite Negative (NEGATIVE) 10/06/22 21:36 Urine Bilirubin Negative (NEGATIVE) 10/06/22 21:36 Urine Urobilinogen 1+ (NORMAL) 10/06/22 21:36 Ur Leukocyte Esterase 2+ (NEGATIVE) 10/06/22 21:36 Urine RBC None seen /HPF (0-3) 10/06/22 21:36 Urine WBC 10-20 /HPF (0-5) A 10/06/22 21:36 Ur Squamous Epith Cells Few /HPF (NEGATIVE) 10/06/22 21:36 Amorphous Sediment 2+ /HPF (NEGATIVE) 10/06/22 21:36 Urine Bacteria Trace /HPF (NEGATIVE) 10/06/22 21:36 Ur Culture Indicated? Yes/culture set up 10/06/22 21:36 Labs acceptable, potassium mildly low 3.2. U/A c/w UTI. Opioid Opioid Risk Tool Age (Jose box if 16-45): No History of Preadolescent Sexual Abuse: No Total: 0 Total Score Risk Category: Low Risk Copyright: Pierre CASTRO predicting aberrant behaviors Discharge Plan Diagnosis Discharge Problem: Vomiting, Acute urinary tract infection Discharge Plan Patient Disposition: 09 ADMITTED INPATIENT Condition: Stable
[2022-10-06] MEDS ORDERED: ZOFRAN INJ 4 MG VIAL IVP ONE (20:49)
[2022-10-06] MEDS ORDERED: PROTONIX INJ 40 MG VIAL IVP ONE (20:50)
[2022-10-06] MEDS ORDERED: NS 500 ML IV 500 ML IV ONE (20:51)
[2022-10-06] MEDS ORDERED: PROTONIX INJ 40 MG VIAL ONE (20:55)
[2022-10-06] MEDS ORDERED: ZOFRAN INJ 4 MG VIAL ONE (20:55)
[2022-10-06] MEDS ORDERED: NS 1,000 ML IV 1,000 ML ONE (20:55)
[2022-10-06] MEDS ORDERED: TORADOL 30 MG VIAL IVP ONE (21:18)
[2022-10-06 21:19] LABS: BASOPHILS % (AUTO) 0.6 % (0.2-1.0); EOSINOPHILS # (AUTO) 0.1 x10^3/uL (0.0-0.2); EOSINOPHILS % (AUTO) 2.1 % (0.9-2.9); HEMATOCRIT 42.9 % (36.0-47.0); HEMOGLOBIN 14.4 g/dL (12.0-16.0); LYMPHOCYTES # (AUTO) 1.9 X10^3/uL (1.3-2.9); LYMPHOCYTES % (AUTO) 28.8 % (21.0-51.0); MEAN CORPUSCULAR HEMOGLOBIN 28.7 pg (27.0-34.0); MEAN CORPUSCULAR HGB CONC 33.6 g/dL (33.0-35.0); MEAN CORPUSCULAR VOLUME 85.2 fL (80.0-100.0); MEAN PLATELET VOLUME 7.9 fL (7.4-11.0); MONOCYTES # (AUTO) 0.4 x10^3/uL (0.3-0.8); MONOCYTES % (AUTO) 6.8 % (0.0-13.0); NEUTROPHILS # (AUTO) 4.1 x10^3/uL (2.2-4.8); NEUTROPHILS % (AUTO) 61.7 % (42.0-75.0); PLATELET COUNT 173 X10^3/uL (150.0-450.0); RED BLOOD COUNT 5.03 X10^6/uL (3.5-5.4); RED CELL DISTRIBUTION WIDTH 13.8 % (11.6-16.5); WHITE BLOOD COUNT 6.6 X10^3/uL (3.6-10.0)
[2022-10-06 21:25] LABS: ALANINE AMINOTRANSFERASE 24 Units/L (12-78); ALBUMIN 3.4 g/dL (3.4-5.0); ALKALINE PHOSPHATASE 75 Units/L (46-116); ASPARTATE AMINO TRANSFERASE 21 Units/L (15-37); BLOOD UREA NITROGEN 7 mg/dL (7-18); CALCIUM 9.1 mg/dL (8.5-10.1); CARBON DIOXIDE 32.6 mmol/L (21-32); CHLORIDE 104 mmol/L (98-107); CREATININE 0.83 mg/dL (0.55-1.02); GLUCOSE 108 mg/dL (65-99); LIPASE 59 Units/L (73-393); POTASSIUM 3.2 mmol/L (3.5-5.1); SODIUM 145 mmol/L (136-145); TOTAL PROTEIN 6.6 g/dL (6.4-8.2); eGFR NON BLACK RACES > 60 (>60)
[2022-10-06] MEDS ORDERED: TORADOL 30 MG VIAL ONE (21:27)
[2022-10-06 21:42] LABS: BILIRUBIN,URINE NEGATIVE (NEGATIVE); BLOOD/HEMOGLOBIN,URINE NEGATIVE (NEGATIVE); GLUCOSE, URINE NEGATIVE (NEGATIVE); KETONES,URINE NEGATIVE (NEGATIVE); LEUKOCYTE ESTERASE ,URINE 2+ (NEGATIVE); NITRITES,URINE NEGATIVE (NEGATIVE); PROTEIN,URINE NEGATIVE (NEGATIVE); UROBILINOGEN,URINE 1+ (NORMAL)
[2022-10-06 21:59] LABS: APPEARANCE,URINE CLEAR (CLEAR); COLOR,URINE PALE YELLOW (YELLOW)
[2022-10-06 22:00] LABS: BACTERIA,URINE TRACE /HPF (NEGATIVE); RBC,URINE NONE SEEN /HPF (0-3); SQUAMOUS EPITHELIAL CELL,UR FEW /HPF (NEGATIVE)
[2022-10-06] MEDS ORDERED: D5 1/2 NS 1,000 ML 1,000 ML with POTASSIUM CHLORIDE INJ 10 MEQ VIAL 10 MEQ IV SCH ×2 (23:30)
[2022-10-06] MEDS ORDERED: REQUIP PO PRN (23:30)
[2022-10-06] MEDS ORDERED: CONSULT PHARMACY - POTASSIUM & MAGNESIUM XX SCH (23:30)
[2022-10-06] MEDS ORDERED: NITROSTAT SL PRN (23:30)
[2022-10-07 00:10] VITALS: BMI 34.2
[2022-10-07] MEDS: ROCEPHIN VIAL 1 GRAM 1 G in NS 100 ML IV 100 ML IV SCH (00:18)
[2022-10-07] MEDS ORDERED: K-RIDER 10 MEQ/NS 100 ML 10 MEQ/100 ML BAG IV ONE (00:34)
[2022-10-07] MEDS ORDERED: D5 1/2 NS 1,000 ML 1,000 ML IV SCH (01:00)
[2022-10-07] MEDS: K-DUR TAB 20 MEQ PO SCH ×2 (01:01→02:37)
[2022-10-07] MEDS: NORCO 10/325 TAB PO PRN ×2 (01:02→11:15)
[2022-10-07] MEDS: ZOFRAN INJ 4 MG VIAL IVP PRN ×2 (02:06→08:25)
[2022-10-07 06:29] LABS: BASOPHILS % (AUTO) 0.5 % (0.2-1.0); EOSINOPHILS # (AUTO) 0.2 x10^3/uL (0.0-0.2); EOSINOPHILS % (AUTO) 3.7 % (0.9-2.9); HEMOGLOBIN 12.7 g/dL (12.0-16.0); LYMPHOCYTES % (AUTO) 36.2 % (21.0-51.0); MEAN CORPUSCULAR HEMOGLOBIN 28.7 pg (27.0-34.0); MEAN CORPUSCULAR HGB CONC 33.5 g/dL (33.0-35.0); MEAN CORPUSCULAR VOLUME 85.8 fL (80.0-100.0); MEAN PLATELET VOLUME 8.6 fL (7.4-11.0); MONOCYTES # (AUTO) 0.4 x10^3/uL (0.3-0.8); MONOCYTES % (AUTO) 7.8 % (0.0-13.0); NEUTROPHILS # (AUTO) 2.9 x10^3/uL (2.2-4.8); NEUTROPHILS % (AUTO) 51.8 % (42.0-75.0); PLATELET COUNT 152 X10^3/uL (150.0-450.0); RED BLOOD COUNT 4.43 X10^6/uL (3.5-5.4); RED CELL DISTRIBUTION WIDTH 14.1 % (11.6-16.5); WHITE BLOOD COUNT 5.7 X10^3/uL (3.6-10.0)
[2022-10-07 06:43] LABS: ALANINE AMINOTRANSFERASE 21 Units/L (12-78); ALBUMIN 2.8 g/dL (3.4-5.0); ALKALINE PHOSPHATASE 62 Units/L (46-116); ASPARTATE AMINO TRANSFERASE 22 Units/L (15-37); BLOOD UREA NITROGEN 7 mg/dL (7-18); CALCIUM 8.4 mg/dL (8.5-10.1); CHLORIDE 106 mmol/L (98-107); COR CA(FOR HYPOALB) 9.4 mg/dL (8.5-10.1); COR NA(FOR HYPERGLY) 145 mmol/L (136-145); CREATININE 0.74 mg/dL (0.55-1.02); GLUCOSE 128 mg/dL (65-99); POTASSIUM 3.8 mmol/L (3.5-5.1); SODIUM 144 mmol/L (136-145); TOTAL PROTEIN 5.5 g/dL (6.4-8.2); eGFR NON BLACK RACES > 60 (>60)
[2022-10-07] MEDS ORDERED: CONSULT PHARMACY - POTASSIUM & MAGNESIUM XX SCH (08:00)
[2022-10-07] MEDS ORDERED: LEXAPRO ONE (08:02)
[2022-10-07] MEDS: RANEXA PO SCH ×2 (08:25→21:33)
[2022-10-07] MEDS: COREG TAB 6.25 MG PO SCH ×2 (08:25→22:16)
[2022-10-07] MEDS: CARDIZEM TAB 30 MG PLAIN PO SCH ×2 (08:25→21:40)
[2022-10-07] MEDS: COZAAR PO SCH (08:26)
[2022-10-07] MEDS: PriLOSEC PO SCH (08:26)
[2022-10-07] MEDS: PLAVIX PO SCH (08:26)
[2022-10-07] MEDS: LASIX PO SCH (08:26)
[2022-10-07] MEDS: TOPAMAX PO SCH ×2 (08:26→21:35)
[2022-10-07] MEDS: COLACE CAP 100 MG PO SCH (08:26)
[2022-10-07] MEDS: LEXAPRO PO SCH (08:26)
[2022-10-07] MEDS: MAG-OX TAB PO SCH ×2 (08:27→09:30)
[2022-10-07] MEDS ORDERED: PATIENT'S HOME MEDICATION (Escitalopram Oxalate 20 mg Tablet) PO SCH (09:00)
[2022-10-07] MEDS ORDERED: RANOLAZINE PO SCH (09:00)
[2022-10-07] MEDS: LOVENOX INJ 40 MG SYR SC SCH (09:51)
[2022-10-07] MEDS: POTASSIUM CHLORIDE IV SCH ×4 (10:00→22:17)
[2022-10-07] MEDS: D5 IV SCH ×4 (10:00→22:17)
[2022-10-07] MEDS: 1/2 NS IV SCH ×4 (10:00→22:17)
[2022-10-07] MEDS ORDERED: ZOFRAN INJ 4 MG VIAL IVP ONE (10:10)
[2022-10-07] MEDS ORDERED: VISTARIL PO PRN (19:03)
--- NOTE | 2022-10-07 22:07 | RAD ---
HISTORYNausea with vomiting, abdominal pain, chronic use of narcotics.STUDYAcute abdominal series four viewsCOMPARISONAcute abdominal series from 09/03/2022.FINDINGSTubes/lines: None.Bowel gas pattern: No significant abnormality.Free air: None seen.Additional findings: The bones are unchanged. There is similar cardiomegaly with increased bilateral interstitial opacities.IMPRESSION1. No acute abnormality of the abdomen accounting for the patient's pain or nausea/vomiting.2. Similar cardiomegaly with increased bilateral pulmonary opacities, possibly representing edema/atelectasis.Electronically signed by: Mahad Ennis (Oct 07, 2022 22:06:11)
[2022-10-08] MEDS: NORCO 10/325 TAB PO PRN (00:54)
[2022-10-08] MEDS: ROCEPHIN VIAL 1 GRAM 1 G in NS 100 ML IV 100 ML IV SCH (00:58)
[2022-10-08] MEDS: D5 IV SCH ×2 (01:00)
[2022-10-08] MEDS: POTASSIUM CHLORIDE IV SCH ×2 (01:00)
[2022-10-08] MEDS: 1/2 NS IV SCH ×2 (01:00)
[2022-10-08 06:36] LABS: BASOPHILS % (AUTO) 0.7 % (0.2-1.0); EOSINOPHILS # (AUTO) 0.3 x10^3/uL (0.0-0.2); EOSINOPHILS % (AUTO) 6.1 % (0.9-2.9); HEMATOCRIT 37.5 % (36.0-47.0); HEMOGLOBIN 12.6 g/dL (12.0-16.0); LYMPHOCYTES # (AUTO) 1.6 X10^3/uL (1.3-2.9); MEAN CORPUSCULAR HEMOGLOBIN 28.9 pg (27.0-34.0); MEAN CORPUSCULAR HGB CONC 33.5 g/dL (33.0-35.0); MEAN CORPUSCULAR VOLUME 86.5 fL (80.0-100.0); MEAN PLATELET VOLUME 8.2 fL (7.4-11.0); MONOCYTES # (AUTO) 0.4 x10^3/uL (0.3-0.8); MONOCYTES % (AUTO) 8.2 % (0.0-13.0); NEUTROPHILS # (AUTO) 2.3 x10^3/uL (2.2-4.8); PLATELET COUNT 146 X10^3/uL (150.0-450.0); RED BLOOD COUNT 4.34 X10^6/uL (3.5-5.4); RED CELL DISTRIBUTION WIDTH 14.2 % (11.6-16.5); WHITE BLOOD COUNT 4.6 X10^3/uL (3.6-10.0)
[2022-10-08 06:59] LABS: ALANINE AMINOTRANSFERASE 28 Units/L (12-78); ALBUMIN 2.8 g/dL (3.4-5.0); ALKALINE PHOSPHATASE 61 Units/L (46-116); ASPARTATE AMINO TRANSFERASE 30 Units/L (15-37); BLOOD UREA NITROGEN 6 mg/dL (7-18); CALCIUM 8.3 mg/dL (8.5-10.1); CARBON DIOXIDE 31.7 mmol/L (21-32); CHLORIDE 107 mmol/L (98-107); COR CA(FOR HYPOALB) 9.3 mg/dL (8.5-10.1); COR NA(FOR HYPERGLY) 144 mmol/L (136-145); CREATININE 0.96 mg/dL (0.55-1.02); GLUCOSE 114 mg/dL (65-99); SODIUM 144 mmol/L (136-145); TOTAL PROTEIN 5.6 g/dL (6.4-8.2); eGFR NON BLACK RACES 60 (>60)
[2022-10-08] MEDS ORDERED: LEXAPRO ONE (08:13)
[2022-10-08] MEDS: TOPAMAX PO SCH (08:18)
[2022-10-08] MEDS: LOVENOX INJ 40 MG SYR SC SCH (08:18)
[2022-10-08] MEDS: PLAVIX PO SCH (08:19)
[2022-10-08] MEDS: RANEXA PO SCH (08:19)
[2022-10-08] MEDS: COZAAR PO SCH (08:19)
[2022-10-08] MEDS: PriLOSEC PO SCH (08:19)
[2022-10-08] MEDS: COLACE CAP 100 MG PO SCH (08:19)
[2022-10-08] MEDS: LEXAPRO PO SCH (08:20)
[2022-10-08] MEDS: LASIX PO SCH (08:20)
[2022-10-08] MEDS: COREG TAB 6.25 MG PO SCH (08:35)
[2022-10-08] MEDS: CARDIZEM TAB 30 MG PLAIN PO SCH (08:35)
[2022-10-08] MEDS ORDERED: LINZESS PO ONE (08:37)
[2022-10-08 13:04] VITALS: BP 133/67; PULSE 66; RESP 18; TEMP 98.6; O2SAT 96
== END 2022-10-08 16:50 | disposition home health service (06) ==
LOC: MED/SURG 19:47 → ER 19:47 → MED/SURG 22:55
PROVIDERS: ADMIT Family Medicine; ATTEND Obstetrics & Gynecology Obstetrics
DX: R11.2 Nausea with vomiting, unspecified; B95.7 Other staphylococcus as the cause of diseases classified elsewhere; N39.0 Urinary tract infection, site not specified; E11.65 Type 2 diabetes mellitus with hyperglycemia; I25.10 Atherosclerotic heart disease of native coronary artery without angina pectoris; I10 Essential (primary) hypertension; F41.8 Other specified anxiety disorders; K59.09 Other constipation; K21.9 Gastro-esophageal reflux disease without esophagitis; Z66 Do not resuscitate; E78.2 Mixed hyperlipidemia; E87.6 Hypokalemia

== ENCOUNTER 2022-11-25 18:51 | Inpatient (IN) ==
--- NOTE | 2022-11-25 19:33 | RAD ---
EXAM: CHEST X-RAYHISTORY: Shortness of breath.TECHNIQUE: AP CXR dated November 25, 2022 at 7:18 PM.COMPARISON: CXR dated October 01, 2022.FINDINGS:There is evidence for cardiomegaly. The pulmonary vascularity and interstitial markings are diffusely prominent, consistent with mild CHF or volume overload in the appropriate clinical setting; differential diagnosis includes (but is not limited to) mild bronchitis and interstitial pneumonia in the appropriate clinical setting.There is no gross focal lung consolidation, pleural effusion, or pneumothorax seen. The visualized bony structures are within normal limits.IMPRESSION:1. Findings consistent with mild CHF or volume overload in the appropriate clinical setting; DDX includes (but is not limited to) mild bronchitis and interstitial pneumonia in the appropriate clinical setting.2. Recommend clinical correlation and appropriate follow-up CXR evaluation to ensure interval clearance as clinically warranted.3. No significant interval change seen.4. Consider follow-up noncontrast chest CT for further characterization as clinically warranted.Electronically signed by: Kenneth Herman (Nov 25, 2022 19:32:00)
[2022-11-25 19:38] LABS: BASOPHILS % (AUTO) 0.4 % (0.2-1.0); EOSINOPHILS % (AUTO) 0.2 % (0.9-2.9); HEMATOCRIT 44.7 % (36.0-47.0); LYMPHOCYTES % (AUTO) 26.7 % (21.0-51.0); MEAN CORPUSCULAR HEMOGLOBIN 28.7 pg (27.0-34.0); MEAN CORPUSCULAR HGB CONC 33.6 g/dL (33.0-35.0); MEAN CORPUSCULAR VOLUME 85.3 fL (80.0-100.0); MEAN PLATELET VOLUME 7.7 fL (7.4-11.0); MONOCYTES % (AUTO) 13.3 % (0.0-13.0); NEUTROPHILS # (AUTO) 4.4 x10^3/uL (2.2-4.8); NEUTROPHILS % (AUTO) 59.4 % (42.0-75.0); PLATELET COUNT 153 X10^3/uL (150.0-450.0); RED BLOOD COUNT 5.24 X10^6/uL (3.5-5.4); WHITE BLOOD COUNT 7.3 X10^3/uL (3.6-10.0)
[2022-11-25 19:43] LABS: ABG BASE EXCESS 5.8 mmol/L (-2.0-2.0)
[2022-11-25 19:44] LABS: ABG ALLEN TEST POS; ABG HCO3 30.6 mmol/L (22-26)
--- NOTE | 2022-11-25 19:44 | DR.NAUSEAF ---
HPI Time Seen Time Seen by Provider: 11/25/22 19:38 Primary Care Physician Primary Care Physician: DANIELSON Complaints Chief Complaint:: PT AMBULATORY IN ED WITH C/O VOMITING X 2 DAYS. PT STATES SHE WENT TO DR ON FRIDAY FOR COUGHING AND NOT FEELING GOOD AND HE DOUBLED HER LASIX D/T FLUID AROUND HEART. STATES THEY DID A COVID TEST AND IT WAS NEGATIVE THAT THE DR SAID IT IS JUST THE FLUID AROUND HER HEART. SHE STARTED VOMITING YESTERDAY AND FEELS LIKE STARTING OF A UTI. COVID-19 Coronavirus risk:travel/contact w/high risk person: No Has patient experienced Coronavirus symptoms: Yes Coronavirus symptoms experienced: Fever, Coughing and Shortness of Breath Source History Provided: Patient Mode of Arrival Mode of Arrival: Ambulatory Timing Onset of Chief Complaint: 11/24/22 PMH PMH Past Medical History: Yes Past Medical History: Anemia, Anxiety, Arthritis, CHF, COPD, Coronary Artery Disease, CVA, Depression, Diabetes, Dyslipidemia, GERD, Hypertension and [place] Past Surgical History: Yes Surgical History: Hysterectomy Past Surgical History Comment: BILATERAL CATARACT Family History History of Family Medical Conditions: Yes Family Medical History: Diabetes Mellitus, Cancer, [place], Coronary Artery Disease, Heart Failure, Sudden Cardiac and Hypertension Social History Does patient currently use any type of tobacco product: No Have you used tobacco products in the last 12 months: No Type of Tobacco Use: None Does any household member use tobacco: No Alcohol Use: None Do you use any recreational Drugs:: No Lives With: Alone Lives Where: Home Travel Risk Coronavirus risk:travel/contact w/high risk person: No Has patient experienced Coronavirus symptoms: Yes Coronavirus symptoms experienced: Fever, Coughing and Shortness of Breath Infectious screening In the last 2 months have you had wt loss of >10#?: NO Have you had fever, night sweats or hemotysis?: No Have you traveled outside the country in the last 6 months?: No Isolation: Droplet PE Vital Signs Vitals: Vital Signs Temperature 99.3 F Pulse Rate 55 Pulse Rate 57 Pulse Rate 60 Pulse Rate 65 Pulse Rate 62 Pulse Rate 77 Pulse Rate 70 Pulse Rate 74 Pulse Rate 58 Pulse Rate 57 Pulse Rate 56 Pulse Rate 71 Pulse Rate 61 Pulse Rate 58 Pulse Rate 64 Pulse Rate 69 Pulse Rate 74 Pulse Rate 70 Pulse Rate 66 Pulse Rate 65 Pulse Rate 62 Pulse Rate 67 Pulse Rate 77 Respiratory Rate 29 Respiratory Rate 30 Respiratory Rate 27 Respiratory Rate 59 Respiratory Rate 30 Respiratory Rate 27 Respiratory Rate 29 Respiratory Rate 47 Respiratory Rate 28 Respiratory Rate 37 Respiratory Rate 28 Respiratory Rate 37 Respiratory Rate 25 Respiratory Rate 24 Respiratory Rate 25 Respiratory Rate 20 Respiratory Rate 20 Respiratory Rate 20 Respiratory Rate 22 Respiratory Rate 37 Respiratory Rate 34 Respiratory Rate 27 Respiratory Rate 32 Respiratory Rate 44 Respiratory Rate 22 Blood Pressure 144/64 Blood Pressure 144/64 Blood Pressure 113/82 Blood Pressure 123/56 Blood Pressure 142/63 Blood Pressure 142/63 Blood Pressure 174/80 Blood Pressure 138/97 Blood Pressure 131/77 O2 Sat by Pulse Oximetry 97 O2 Sat by Pulse Oximetry 98 O2 Sat by Pulse Oximetry 97 O2 Sat by Pulse Oximetry 81 O2 Sat by Pulse Oximetry 82 O2 Sat by Pulse Oximetry 97 O2 Sat by Pulse Oximetry 99 O2 Sat by Pulse Oximetry 97 O2 Sat by Pulse Oximetry 98 O2 Sat by Pulse Oximetry 96 O2 Sat by Pulse Oximetry 96 O2 Sat by Pulse Oximetry 97 O2 Sat by Pulse Oximetry 96 O2 Sat by Pulse Oximetry 97 O2 Sat by Pulse Oximetry 96 O2 Sat by Pulse Oximetry 96 O2 Sat by Pulse Oximetry 97 O2 Sat by Pulse Oximetry 95 O2 Sat by Pulse Oximetry 95 O2 Sat by Pulse Oximetry 96 O2 Sat by Pulse Oximetry 88 [facility] Labs Reviewed 11/25/22 19:25 11/25/22 19:25 Laboratory: WBC 7.3 X10^3/uL (3.6-10.0) 11/25/22 19:25 RBC 5.24 X10^6/uL (3.5-5.4) 11/25/22 19:25 Hgb 15.0 g/dL (12.0-16.0) 11/25/22 19:25 Hct 44.7 % (36.0-47.0) 11/25/22 19:25 MCV 85.3 fL (80.0-100.0) 11/25/22 19:25 MCH 28.7 pg (27.0-34.0) 11/25/22 19:25 MCHC 33.6 g/dL (33.0-35.0) 11/25/22 19:25 RDW 15.0 % (11.6-16.5) 11/25/22 19:25 Plt Count 153 X10^3/uL (150.0-450.0) 11/25/22 19:25 MPV 7.7 fL (7.4-11.0) 11/25/22 19:25 Neut % (Auto) 59.4 % (42.0-75.0) 11/25/22 19:25 Lymph % (Auto) 26.7 % (21.0-51.0) 11/25/22 19:25 [place] % (Auto) 13.3 % (0.0-13.0) H 11/25/22 19:25 Eos % (Auto) 0.2 % (0.9-2.9) L 11/25/22 19:25 Baso % (Auto) 0.4 % (0.2-1.0) 11/25/22 19:25 Neut # (Auto) 4.4 x10^3/uL (2.2-4.8) 11/25/22 19:25 Lymph # (Auto) 2.0 X10^3/uL (1.3-2.9) 11/25/22 19:25 [place] # (Auto) 1.0 x10^3/uL (0.3-0.8) H 11/25/22 19:25 Eos # (Auto) 0.0 x10^3/uL (0.0-0.2) 11/25/22 19:25 Baso # (Auto) 0.0 X10^3/uL (0.0-0.1) 11/25/22 19:25 Absolute Nucleated RBC 0.1 /100WBC 11/25/22 19:25 D-Dimer 1.26 ug/ml (0.0-0.57) H 11/25/22 19:25 Sample Site L rad 11/25/22 19:38 ABG pH 7.450 (7.35-7.45) 11/25/22 19:38 ABG pCO2 44.0 mmHg (35.0-45.0) 11/25/22 19:38 ABG pO2 97.0 mmHg (80.0-100.0) 11/25/22 19:38 ABG HCO3 30.6 mmol/L (22-26) H* 11/25/22 19:38 ABG O2 Saturation 98.0 % (90-100) 11/25/22 19:38 ABG Base Excess 5.8 mmol/L (-2.0-2.0) H 11/25/22 19:38 Calixto Test Pos 11/25/22 19:38 A-a Gradient 76.0 mmHg 11/25/22 19:38 FiO2 32.0 11/25/22 19:38 Blood Gas Comments Juan well food technologist 11/25/22 19:38 Sodium 140 mmol/L (136-145) 11/25/22 19:25 Corrected Sodium 141 mmol/L (136-145) 11/25/22 19:25 Potassium 3.1 mmol/L (3.5-5.1) L 11/25/22 19:25 Chloride 102 mmol/L (98-107) 11/25/22 19:25 Carbon Dioxide 29.3 mmol/L (21-32) 11/25/22 19:25 BUN 13 mg/dL (7-18) 11/25/22 19:25 Creatinine 1.08 mg/dL (0.55-1.02) H 11/25/22 19:25 Est GFR (MDRD) Af Amer > 60 (>60) 11/25/22 19:25 Est GFR (MDRD) Non-Af 52 (>60) L 11/25/22 19:25 Glucose 132 mg/dL (65-99) H 11/25/22 19:25 Calcium 8.4 mg/dL (8.5-10.1) L 11/25/22 19:25 Corrected Calcium TNP 11/25/22 19:25 Total Bilirubin 0.50 mg/dL (0.2-1.0) 11/25/22 19:25 AST 31 Units/L (15-37) 11/25/22 19:25 ALT 30 Units/L (12-78) 11/25/22 19:25 Alkaline Phosphatase 81 Units/L (46-116) 11/25/22 19:25 Creatine Kinase 108 Units/L (26-192) 11/25/22 22:00 Troponin I High Sens 31.7 ng/L (4.0-60.0) 11/25/22 22:00 B-Natriuretic Peptide 139 pg/mL (0-79) H 11/25/22 19:25 Total Protein 7.7 g/dL (6.4-8.2) 11/25/22 19:25 Albumin 3.4 g/dL (3.4-5.0) 11/25/22 19:25 Globulin 4.3 g/dL (2.5-4.5) 11/25/22 19:25 Albumin/Globulin Ratio 0.8 Ratio (1.1-2.1) L 11/25/22 19:25 Specimen Type Catherized urine 11/25/22 23:11 Urine Color Chiqui (YELLOW) 11/25/22 23:11 Urine Appearance Clear (CLEAR) 11/25/22 23:11 Urine pH 5.0 (5.0 - 8.0) 11/25/22 23:11 Ur Specific Kress 1.025 (1.000-1.030) 11/25/22 23:11 Urine Protein 2+ (NEGATIVE) 11/25/22 23:11 Urine Glucose (UA) Negative (NEGATIVE) 11/25/22 23:11 Urine Ketones Negative (NEGATIVE) 11/25/22 23:11 Urine Blood Negative (NEGATIVE) 11/25/22 23:11 Urine Nitrite Negative (NEGATIVE) 11/25/22 23:11 Urine Bilirubin Negative (NEGATIVE) 11/25/22 23:11 Urine Urobilinogen 1+ (NORMAL) 11/25/22 23:11 Ur Leukocyte Esterase Negative (NEGATIVE) 11/25/22 23:11 Urine RBC 0-2 /HPF (0-3) 11/25/22 23:11 Urine WBC None seen /HPF (0-5) 11/25/22 23:11 Ur Squamous Epith Cells Few /HPF (NEGATIVE) 11/25/22 23:11 Ur Transition Epith Cell Few /HPF (NEGATIVE) 11/25/22 23:11 Urine Bacteria Trace /HPF (NEGATIVE) 11/25/22 23:11 Hyaline Casts Few /LPF (NEGATIVE) 11/25/22 23:11 Urine Mucus Few /HPF (NEGATIVE) 11/25/22 23:11 Ur Culture Indicated? No/not indicated 11/25/22 23:11 SARS-CoV-2 (PCR) Positive (NEGATIVE) A 11/25/22 19:19 Influenza Type A (PCR) Negative (NEGATIVE) 11/25/22 19:19 Influenza Type B (PCR) Negative (NEGATIVE) 11/25/22 19:19 RSV (PCR) Negative (NEGATIVE) 11/25/22 19:19 Opioid Opioid Risk Tool Age (Jose box if 16-45): No History of Preadolescent Sexual Abuse: No Total: 0 Total Score Risk Category: Low Risk Copyright: Pierre CASTRO predicting aberrant behaviors Discharge Plan Discharge Plan Patient Disposition: 09 ADMITTED INPATIENT Condition: Stable Orders to Discharge Patient Discharge Orders: Transfer (Routine); Ordered 11/26/22 Ordered By: ELODIA PATTERSON
[2022-11-25 19:51] LABS: ALANINE AMINOTRANSFERASE 30 Units/L (12-78); ALBUMIN 3.4 g/dL (3.4-5.0); ALKALINE PHOSPHATASE 81 Units/L (46-116); ASPARTATE AMINO TRANSFERASE 31 Units/L (15-37); BLOOD UREA NITROGEN 13 mg/dL (7-18); CALCIUM 8.4 mg/dL (8.5-10.1); CARBON DIOXIDE 29.3 mmol/L (21-32); CHLORIDE 102 mmol/L (98-107); COR NA(FOR HYPERGLY) 141 mmol/L (136-145); CREATINE KINASE 98 Units/L (26-192); CREATININE 1.08 mg/dL (0.55-1.02); GLUCOSE 132 mg/dL (65-99); POTASSIUM 3.1 mmol/L (3.5-5.1); SODIUM 140 mmol/L (136-145); TOTAL PROTEIN 7.7 g/dL (6.4-8.2); eGFR NON BLACK RACES 52 (>60)
[2022-11-25] MEDS ORDERED: DEMEROL INJ IVP ONE (19:56)
[2022-11-25] MEDS ORDERED: ZOFRAN INJ 4 MG VIAL IVP ONE (19:56)
[2022-11-25] MEDS ORDERED: DEMEROL INJ ONE (19:59)
[2022-11-25] MEDS ORDERED: ZOFRAN INJ 4 MG VIAL ONE (19:59)
--- NOTE | 2022-11-25 20:01 | EKG ---
Test Reason : SHORTNESS OF BREATH Blood Pressure : */* mmHG Vent. Rate : 68 BPM Atrial Rate : 68 BPM P-R Int : 176 ms QRS Dur : 88 ms QT Int : 422 ms P-R-T Axes : 58 61 15 degrees QTc Int : 448 ms Sinus rhythm with marked sinus arrhythmia Nonspecific ST abnormality Abnormal ECG When compared with ECG of 01-OCT-2022 13:12, premature ventricular complexes are no longer present Confirmed by Cade Echeverria ([id number]) on 11/26/2022 7:28:59 AM Referred By: Confirmed By: Cade Echeverria
[2022-11-25] MEDS ORDERED: K-DUR TAB 20 MEQ PO ONE ×2 (21:40→21:49)
[2022-11-25] MEDS ORDERED: NS 1,000 ML IV 1,000 ML ONE (22:00)
[2022-11-25] MEDS ORDERED: NS 1,000 ML IV 1,000 ML IV SCH (22:00)
--- NOTE | 2022-11-25 23:13 | CT ---
PROCEDURE: CT Abdomen and Pelvis without Contrast .HISTORY: Emesis for 2 days.TECHNIQUE: Axial images were performed through the abdomen and pelvis without the administration of IV contrast with multiplanar reformations . Oral contrast was not administered . Dose reduction techniques including Automated Exposure Control (AEC) and adjustment of mA and kV were utilized .COMPARISON: 12/06/2018.TECHNICAL QUALITY: Satisfactory .FINDINGS:Some peripheral fibrosis both lung bases. Mild cardiomegaly with small pericardial effusion and diffuse coronary artery calcifications.Liver, spleen, adrenals, pancreas show no abnormality.Kidneys show no stones or obstruction.Tiny stones in the gallbladder without inflammation and normal biliary tree.No ascites or pneumoperitoneum.Mild atherosclerosis aorta.No lymphadenopathy.No bowel obstruction or inflammation. Appendix is not visualized.Pelvis shows no masses or free fluid with previous hysterectomy. Normal urinary bladder.No acute bony abnormality.IMPRESSION:1. Cholelithiasis.2. No other significant abnormality involving abdomen or pelvis.3. Some peripheral fibrosis lung bases.4. Unchanged cardiomegaly with small pericardial effusion.Electronically signed by: Nayan Collazo (Nov 25, 2022 23:11:46)
[2022-11-25 23:21] LABS: BILIRUBIN,URINE NEGATIVE (NEGATIVE); BLOOD/HEMOGLOBIN,URINE NEGATIVE (NEGATIVE); GLUCOSE, URINE NEGATIVE (NEGATIVE); KETONES,URINE NEGATIVE (NEGATIVE); LEUKOCYTE ESTERASE ,URINE NEGATIVE (NEGATIVE); NITRITES,URINE NEGATIVE (NEGATIVE); PROTEIN,URINE 2+ (NEGATIVE); UROBILINOGEN,URINE 1+ (NORMAL)
[2022-11-25 23:27] LABS: APPEARANCE,URINE CLEAR (CLEAR); COLOR,URINE AMBER (YELLOW)
[2022-11-25 23:34] LABS: BACTERIA,URINE TRACE /HPF (NEGATIVE); HYALINE CASTS, URINE FEW /LPF (NEGATIVE); RBC,URINE 0-2 /HPF (0-3); SQUAMOUS EPITHELIAL CELL,UR FEW /HPF (NEGATIVE); TRANSITIONAL EPI CELLS,URINE FEW /HPF (NEGATIVE)
[2022-11-26] MEDS ORDERED: ROCEPHIN VIAL 1 GRAM 1 G in NS 100 ML IV 100 ML IV STA (00:21)
[2022-11-26] MEDS ORDERED: NS 100 ML IV 100 ML ONE (00:23)
[2022-11-26] MEDS ORDERED: ROCEPHIN VIAL 1 GRAM ONE (00:23)
[2022-11-26 01:45] VITALS: BMI 32.4
[2022-11-26] MEDS: XOPENEX 1.25 MG/3 ML NEBULE NEB SCH ×6 (02:30→20:10)
[2022-11-26] MEDS: TYLENOL 325 MG TAB PO PRN ×4 (04:46→22:46)
[2022-11-26] MEDS ORDERED: TUSSIONEX PENNKINETIC SUSP PO PRN (05:09)
[2022-11-26] MEDS ORDERED: DUONEB 0.5 MG/3 MG (3 mL) NEB SCH (06:00)
[2022-11-26] MEDS: PULMICORT NEB TX 0.5 MG NEB SCH ×2 (08:00→20:10)
[2022-11-26] MEDS ORDERED: IVERMECTIN PO NR (09:00)
[2022-11-26] MEDS: FARXIGA PO SCH (09:24)
[2022-11-26] MEDS: ROBITUSSIN DM PO SCH ×4 (09:24→21:31)
[2022-11-26] MEDS: ENTRESTO 24/26 MG TABLET PO SCH ×2 (09:25→21:31)
[2022-11-26] MEDS: RANEXA PO SCH ×2 (09:26→21:31)
[2022-11-26] MEDS: PLAVIX PO SCH (09:26)
[2022-11-26] MEDS: COREG TAB 6.25 MG PO SCH ×2 (09:26→21:31)
[2022-11-26] MEDS: ASPIRIN EC 81 MG PO SCH (09:26)
[2022-11-26] MEDS: PLAQUENIL PO SCH ×2 (09:26→21:31)
[2022-11-26] MEDS: NS + KCL 20 MEQ/L 1,000 ML IV SCH ×3 (09:27→21:32)
[2022-11-26] MEDS: LOVENOX INJ 40 MG SYR SC SCH (09:27)
[2022-11-26] MEDS ORDERED: PHENERGAN INJ 25 MG IM PRN (09:31)
[2022-11-26] MEDS: LASIX IVP SCH (10:00)
[2022-11-26] MEDS: PROTONIX INJ 40 MG VIAL IVP SCH (10:19)
[2022-11-26] MEDS: PHENERGAN TAB 25 MG PO PRN (17:32)
[2022-11-26] MEDS: ROCEPHIN VIAL 1 GRAM 1 G in NS 100 ML IV 100 ML IV SCH (20:18)
[2022-11-27] MEDS: NORCO 10/325 TAB PO PRN (00:51)
[2022-11-27] MEDS ORDERED: ROCEPHIN VIAL 1 GRAM 1 G, ROCEPHIN VIAL 500 MG 500 MG in NS 50 ML IV 50 ML IV SCH (01:00)
[2022-11-27 05:11] LABS: BASOPHILS % (AUTO) 0.7 % (0.2-1.0); EOSINOPHILS # (AUTO) 0.1 x10^3/uL (0.0-0.2); EOSINOPHILS % (AUTO) 3.2 % (0.9-2.9); HEMOGLOBIN 13.5 g/dL (12.0-16.0); LYMPHOCYTES # (AUTO) 1.6 X10^3/uL (1.3-2.9); LYMPHOCYTES % (AUTO) 38.7 % (21.0-51.0); MEAN CORPUSCULAR HEMOGLOBIN 28.8 pg (27.0-34.0); MEAN CORPUSCULAR HGB CONC 33.7 g/dL (33.0-35.0); MEAN CORPUSCULAR VOLUME 85.4 fL (80.0-100.0); MEAN PLATELET VOLUME 8.4 fL (7.4-11.0); MONOCYTES # (AUTO) 0.4 x10^3/uL (0.3-0.8); MONOCYTES % (AUTO) 8.9 % (0.0-13.0); NEUTROPHILS % (AUTO) 48.5 % (42.0-75.0); PLATELET COUNT 122 X10^3/uL (150.0-450.0); RED BLOOD COUNT 4.68 X10^6/uL (3.5-5.4)
[2022-11-27 05:21] LABS: ALANINE AMINOTRANSFERASE 22 Units/L (12-78); ALBUMIN 2.6 g/dL (3.4-5.0); ALKALINE PHOSPHATASE 63 Units/L (46-116); ASPARTATE AMINO TRANSFERASE 29 Units/L (15-37); BLOOD UREA NITROGEN 15 mg/dL (7-18); CALCIUM 7.8 mg/dL (8.5-10.1); CARBON DIOXIDE 31.5 mmol/L (21-32); CHLORIDE 105 mmol/L (98-107); COR CA(FOR HYPOALB) 8.9 mg/dL (8.5-10.1); CREATININE 1.09 mg/dL (0.55-1.02); GLUCOSE 92 mg/dL (65-99); MAGNESIUM 2.1 mg/dL (2.0-2.9); POTASSIUM 3.2 mmol/L (3.5-5.1); SODIUM 143 mmol/L (136-145); TOTAL PROTEIN 6.1 g/dL (6.4-8.2); eGFR NON BLACK RACES 52 (>60)
[2022-11-27] MEDS ORDERED: CONSULT PHARMACY - POTASSIUM & MAGNESIUM XX SCH ×2 (06:00→07:00)
[2022-11-27] MEDS ORDERED: K-DUR TAB 20 MEQ PO SCH (06:00)
[2022-11-27] MEDS: XOPENEX 1.25 MG/3 ML NEBULE NEB SCH ×4 (08:40→21:16)
[2022-11-27] MEDS: PULMICORT NEB TX 0.5 MG NEB SCH ×2 (08:40→21:16)
[2022-11-27] MEDS ORDERED: TOPAMAX TAB 100 MG PO ONE (09:56)
[2022-11-27] MEDS: ROBITUSSIN DM PO SCH ×4 (10:02→20:56)
[2022-11-27] MEDS: NS + KCL 40 MEQ/L 1,000 ML IV SCH (10:02)
[2022-11-27] MEDS: LASIX IVP SCH (10:03)
[2022-11-27] MEDS: COREG TAB 6.25 MG PO SCH ×2 (10:03→20:56)
[2022-11-27] MEDS: PLAVIX PO SCH (10:03)
[2022-11-27] MEDS: TOPAMAX TAB 100 MG PO SCH ×2 (10:03→20:56)
[2022-11-27] MEDS: LOVENOX INJ 40 MG SYR SC SCH (10:03)
[2022-11-27] MEDS: PLAQUENIL PO SCH ×2 (10:04→20:56)
[2022-11-27] MEDS: FARXIGA PO SCH (10:04)
[2022-11-27] MEDS: ASPIRIN EC 81 MG PO SCH (10:04)
[2022-11-27] MEDS: RANEXA PO SCH ×2 (10:04→20:56)
[2022-11-27] MEDS: PROTONIX INJ 40 MG VIAL IVP SCH (10:05)
[2022-11-27] MEDS: ENTRESTO 24/26 MG TABLET PO SCH ×2 (10:05→20:56)
[2022-11-27] MEDS: ULTRAM PO PRN ×2 (13:53→22:10)
[2022-11-27] MEDS: PHENERGAN TAB 25 MG PO PRN (18:24)
[2022-11-27] MEDS: ROCEPHIN VIAL 1 GRAM 1 G in NS 100 ML IV 100 ML IV SCH (21:00)
[2022-11-28] MEDS: NORCO 10/325 TAB PO PRN ×2 (03:15→20:26)
[2022-11-28 05:01] LABS: BASOPHILS % (AUTO) 0.5 % (0.2-1.0); EOSINOPHILS # (AUTO) 0.1 x10^3/uL (0.0-0.2); EOSINOPHILS % (AUTO) 3.1 % (0.9-2.9); HEMATOCRIT 37.3 % (36.0-47.0); HEMOGLOBIN 12.4 g/dL (12.0-16.0); LYMPHOCYTES % (AUTO) 42.5 % (21.0-51.0); MEAN CORPUSCULAR HEMOGLOBIN 28.4 pg (27.0-34.0); MEAN CORPUSCULAR HGB CONC 33.4 g/dL (33.0-35.0); MEAN PLATELET VOLUME 8.2 fL (7.4-11.0); MONOCYTES # (AUTO) 0.4 x10^3/uL (0.3-0.8); NEUTROPHILS # (AUTO) 2.2 x10^3/uL (2.2-4.8); NEUTROPHILS % (AUTO) 45.9 % (42.0-75.0); PLATELET COUNT 121 X10^3/uL (150.0-450.0); RED BLOOD COUNT 4.38 X10^6/uL (3.5-5.4); RED CELL DISTRIBUTION WIDTH 14.7 % (11.6-16.5); WHITE BLOOD COUNT 4.8 X10^3/uL (3.6-10.0)
[2022-11-28 05:14] LABS: ALANINE AMINOTRANSFERASE 21 Units/L (12-78); ALBUMIN 2.4 g/dL (3.4-5.0); ALKALINE PHOSPHATASE 56 Units/L (46-116); ASPARTATE AMINO TRANSFERASE 21 Units/L (15-37); BLOOD UREA NITROGEN 14 mg/dL (7-18); CALCIUM 7.7 mg/dL (8.5-10.1); CARBON DIOXIDE 30.7 mmol/L (21-32); CHLORIDE 106 mmol/L (98-107); GLUCOSE 93 mg/dL (65-99); POTASSIUM 3.5 mmol/L (3.5-5.1); SODIUM 142 mmol/L (136-145); TOTAL PROTEIN 5.6 g/dL (6.4-8.2); eGFR NON BLACK RACES 51 (>60)
[2022-11-28] MEDS: XOPENEX 1.25 MG/3 ML NEBULE NEB SCH ×4 (08:27→21:00)
[2022-11-28] MEDS: PULMICORT NEB TX 0.5 MG NEB SCH ×2 (08:28→21:00)
[2022-11-28] MEDS: PLAVIX PO SCH (08:32)
[2022-11-28] MEDS: FARXIGA PO SCH (08:32)
[2022-11-28] MEDS: ULTRAM PO PRN (08:33)
[2022-11-28] MEDS: LASIX IVP SCH (08:34)
[2022-11-28] MEDS: PROTONIX INJ 40 MG VIAL IVP SCH (08:34)
[2022-11-28] MEDS: RANEXA PO SCH ×2 (08:34→20:15)
[2022-11-28] MEDS: COREG TAB 6.25 MG PO SCH ×2 (08:34→20:15)
[2022-11-28] MEDS: ASPIRIN EC 81 MG PO SCH (08:34)
[2022-11-28] MEDS: PLAQUENIL PO SCH ×2 (08:34→20:15)
[2022-11-28] MEDS: ENTRESTO 24/26 MG TABLET PO SCH ×2 (08:34→20:15)
[2022-11-28] MEDS: TOPAMAX TAB 100 MG PO SCH ×2 (08:34→20:15)
[2022-11-28] MEDS: LOVENOX INJ 40 MG SYR SC SCH (08:35)
[2022-11-28] MEDS: ROBITUSSIN DM PO SCH ×4 (08:45→20:15)
[2022-11-28] MEDS: NS + KCL 40 MEQ/L 1,000 ML IV SCH ×4 (11:11→23:05)
[2022-11-28] MEDS: PHENERGAN TAB 25 MG PO SCH ×3 (11:13→20:15)
[2022-11-28] MEDS: ZYVOX TAB 600 MG PO SCH ×2 (11:13→20:15)
[2022-11-28] MEDS: ROCEPHIN VIAL 1 GRAM 1 G in NS 100 ML IV 100 ML IV SCH (20:14)
[2022-11-29] MEDS: PHENERGAN TAB 25 MG PO SCH ×2 (02:28→09:59)
[2022-11-29 05:12] LABS: BASOPHILS % (AUTO) 0.4 % (0.2-1.0); EOSINOPHILS # (AUTO) 0.1 x10^3/uL (0.0-0.2); EOSINOPHILS % (AUTO) 3.2 % (0.9-2.9); HEMATOCRIT 37.8 % (36.0-47.0); HEMOGLOBIN 12.7 g/dL (12.0-16.0); LYMPHOCYTES # (AUTO) 1.7 X10^3/uL (1.3-2.9); LYMPHOCYTES % (AUTO) 41.4 % (21.0-51.0); MEAN CORPUSCULAR HEMOGLOBIN 28.7 pg (27.0-34.0); MEAN CORPUSCULAR HGB CONC 33.7 g/dL (33.0-35.0); MEAN CORPUSCULAR VOLUME 85.2 fL (80.0-100.0); MEAN PLATELET VOLUME 8.7 fL (7.4-11.0); MONOCYTES # (AUTO) 0.3 x10^3/uL (0.3-0.8); MONOCYTES % (AUTO) 7.4 % (0.0-13.0); NEUTROPHILS % (AUTO) 47.6 % (42.0-75.0); PLATELET COUNT 115 X10^3/uL (150.0-450.0); RED BLOOD COUNT 4.44 X10^6/uL (3.5-5.4); RED CELL DISTRIBUTION WIDTH 14.6 % (11.6-16.5); WHITE BLOOD COUNT 4.2 X10^3/uL (3.6-10.0)
--- NOTE | 2022-11-29 05:25 | RAD ---
EXAM:CHEST, 1 VIEWHISTORY:CHF, COVIDCOMPARISON:11/25/2022FINDINGS:The cardiomediastinal silhouette is widened but stable. Possible mild congestion.No acute airspace disease. No pneumothorax or effusion.No acute osseous abnormality.IMPRESSION:Possible mild congestion.THIS IS AN ELECTRONICALLY VERIFIED FINAL REPORT11/29/2022 5:22 AM - Electronically signed by Alex Mcghee MD
[2022-11-29 05:29] LABS: ALBUMIN 2.6 g/dL (3.4-5.0); CARBON DIOXIDE 30.2 mmol/L (21-32); COR CA(FOR HYPOALB) 9.1 mg/dL (8.5-10.1); CREATININE 1.16 mg/dL (0.55-1.02); MAGNESIUM 1.9 mg/dL (2.0-2.9); POTASSIUM 3.4 mmol/L (3.5-5.1); TOTAL PROTEIN 5.8 g/dL (6.4-8.2)
[2022-11-29] MEDS ORDERED: CONSULT PHARMACY - POTASSIUM & MAGNESIUM XX SCH (06:00)
[2022-11-29 07:51] VITALS: BP 129/58; RESP 22; TEMP 98.2
[2022-11-29] MEDS: ROBITUSSIN DM PO SCH (08:38)
[2022-11-29] MEDS: PLAVIX PO SCH (08:38)
[2022-11-29] MEDS: LOVENOX INJ 40 MG SYR SC SCH (08:38)
[2022-11-29] MEDS: FARXIGA PO SCH (08:38)
[2022-11-29] MEDS: COREG TAB 6.25 MG PO SCH (08:38)
[2022-11-29] MEDS: TOPAMAX TAB 100 MG PO SCH (08:38)
[2022-11-29] MEDS: ZYVOX TAB 600 MG PO SCH (08:38)
[2022-11-29] MEDS: RANEXA PO SCH (08:38)
[2022-11-29] MEDS: PLAQUENIL PO SCH (08:38)
[2022-11-29] MEDS: ENTRESTO 24/26 MG TABLET PO SCH (08:38)
[2022-11-29] MEDS: PULMICORT NEB TX 0.5 MG NEB SCH (08:45)
[2022-11-29] MEDS: XOPENEX 1.25 MG/3 ML NEBULE NEB SCH (08:45)
[2022-11-29] MEDS: PROTONIX INJ 40 MG VIAL IVP SCH (08:46)
[2022-11-29] MEDS: LASIX IVP SCH (08:46)
[2022-11-29] MEDS ORDERED: MAG-OX TAB PO SCH ×3 (09:00→21:00)
[2022-11-29] MEDS ORDERED: K-DUR TAB 20 MEQ PO SCH ×2 (09:00→11:00)
[2022-11-29 09:02] VITALS: PULSE 60; O2SAT 96
[2022-11-29] MEDS: ASPIRIN EC 81 MG PO SCH (09:52)
[2022-11-29] MEDS ORDERED: MIRALAX POWDER (1 DOSE 17 G) PO SCH (21:00)
== END 2022-11-29 12:00 | disposition home health service (06) | DRG 291 ==
LOC: MED/SURG 18:51 → ER 18:51 → MED/SURG 11-26 00:50
PROVIDERS: ADMIT Internal Medicine; ATTEND Obstetrics & Gynecology Obstetrics
DX: Z73.89 Other problems related to life management difficulty; K80.20 Calculus of gallbladder without cholecystitis without obstruction; B95.62 Methicillin resistant Staphylococcus aureus infection as the cause of diseases classified elsewhere; R42 Dizziness and giddiness; Z91.190 Patient's noncompliance with other medical treatment and regimen due to financial hardship; R94.31 Abnormal electrocardiogram [ECG] [EKG]; R51.9 Headache, unspecified; J44.9 Chronic obstructive pulmonary disease, unspecified; R53.1 Weakness; R77.8 Other specified abnormalities of plasma proteins; I50.9 Heart failure, unspecified; U07.1 COVID-19; R11.10 Vomiting, unspecified; R06.02 Shortness of breath; I10 Essential (primary) hypertension

== ENCOUNTER 2022-12-01 17:10 | Observation (INO) ==
[2022-12-01 17:21] VITALS: BMI 35.0
--- NOTE | 2022-12-01 17:25 | DR.NAUSEAF ---
HPI Time Seen Time Seen by Provider: 12/01/22 17:25 Primary Care Physician Primary Care Physician: emilia Complaints Chief Complaint Doctors Comments: 77 y/o female brought in via EMS for evaluation. Admitted here 11/[address] Marquez - with vomiting, Covid & CHF. D/c'd 2 days ago. Not doing any better. Having a persistent cough, loose but not productive. Having several episodes of nausea, vomiting. Having abdominal pain today, told triage nurse was diffuse, tells me it is worse of her RLQ. + sharp, radiates to rest of abdomen. Is worse with palpation, coughing. Nothing makes it better. No fever. Denies bowel or bladder issues. Chief Complaint:: patient was discharged on 11/29/22 from hospital states ever since she left she has been vomiting and coughing. patient also c/o of abd pain all over. denies diarrhea/fever COVID-19 Coronavirus risk:travel/contact w/high risk person: No Has patient experienced Coronavirus symptoms: No Reviewed Nurses Notes Reviewed: Yes Source History Provided: Patient Mode of Arrival Mode of Arrival: Stretcher Timing Onset of Chief Complaint: 11/29/22 PMH PMH Past Medical History: Yes Past Medical History: Anemia, Anxiety, Arthritis, CHF, COPD, Coronary Artery Disease, CVA, Depression, Diabetes, Dyslipidemia, GERD, Hypertension and [place] Past Surgical History: Yes Surgical History: Hysterectomy Past Surgical History Comment: marilin cataracts Family History History of Family Medical Conditions: Yes Family Medical History: Diabetes Mellitus, [place], Coronary Artery Disease, Heart Failure and Hypertension Social History Does patient currently use any type of tobacco product: No Have you used tobacco products in the last 12 months: No Type of Tobacco Use: None Does any household member use tobacco: No Alcohol Use: None Do you use any recreational Drugs:: No Lives With: Alone Travel Risk Coronavirus risk:travel/contact w/high risk person: No Has patient experienced Coronavirus symptoms: No Infectious screening In the last 2 months have you had wt loss of >10#?: NO Have you had fever, night sweats or hemotysis?: No Have you traveled outside the country in the last 6 months?: No Isolation: Standard ROS Review of Systems Constitutional: Weakness Eyes: No Symptoms Reported ENTM: No Symptoms Reported Respiratoy: Moist Cough and Short of Breath Cardiovascular: No Symptoms Reported Gastrointestinal/Abdominal: See HPI Genitourinary: No Symptoms Reported Neurological: Weakness Musculoskeletal: No Symptoms Reported Integumentary: No Symptoms Reported All Other Systems: Reviewed and Negative PE Vital Signs Vitals: Vital Signs Temperature 98.1 F Pulse Rate [Left Brachial] 59 Pulse Rate 47 Pulse Rate 55 Pulse Rate 48 Pulse Rate 52 Pulse Rate 49 Pulse Rate 49 Pulse Rate 63 Pulse Rate 56 Pulse Rate 57 Pulse Rate 50 Pulse Rate 48 Pulse Rate 48 Pulse Rate 48 Pulse Rate 54 Pulse Rate 53 Respiratory Rate 25 Respiratory Rate 34 Respiratory Rate 24 Respiratory Rate 30 Respiratory Rate 28 Respiratory Rate 23 Respiratory Rate 30 Respiratory Rate 23 Respiratory Rate 20 Respiratory Rate 32 Respiratory Rate 33 Respiratory Rate 29 Respiratory Rate 42 Respiratory Rate 24 Respiratory Rate 25 Respiratory Rate 27 Respiratory Rate 29 Blood Pressure [Left Arm] 143/79 Blood Pressure 143/79 Blood Pressure 143/59 Blood Pressure 174/75 Blood Pressure 174/75 Blood Pressure 122/68 Blood Pressure 148/67 Blood Pressure 148/67 Blood Pressure 148/67 Blood Pressure 148/67 O2 Sat by Pulse Oximetry 99 O2 Sat by Pulse Oximetry 98 O2 Sat by Pulse Oximetry 97 O2 Sat by Pulse Oximetry 98 O2 Sat by Pulse Oximetry 95 O2 Sat by Pulse Oximetry 97 O2 Sat by Pulse Oximetry 98 O2 Sat by Pulse Oximetry 89 O2 Sat by Pulse Oximetry 99 O2 Sat by Pulse Oximetry 95 O2 Sat by Pulse Oximetry 100 O2 Sat by Pulse Oximetry 98 O2 Sat by Pulse Oximetry 99 O2 Sat by Pulse Oximetry 99 O2 Sat by Pulse Oximetry 98 O2 Sat by Pulse Oximetry 96 General General Appearance: Alert, In No Apparent Distress and Other (+ harsh cough) Eyes Eye exam: PERRL and EOMI ENT ENT Exam: Mucous Membranes Moist Neck Neck Exam: Normal Inspection and Other (no JVD); negative Tenderness Respiratory Respiratory Exam: Normal Lung Sounds Bilat; negative Accessory Muscle Use or Respiratory Distress Cardiovascular Cardiovascular Exam: Regular Rate, Normal Rhythm and Normal Heart Sounds Abdominal Exam Abdominal Exam: Normal Bowel Sounds, Soft and Tenderness (RLQ, with degree of guarding and rebound.) Extremities Extremities Exam: Normal Inspection; negative Edema Neurologic Neurological Exam: Alert, Oriented X3 and CN II-XII Intact; negative Motor Sensory Deficit Skin Skin Exam: Warm and Dry COURSE Treatment Treatment: 77 y/o female, recently admitted for N/V, Covid & CHF. Now with vomiting, lower abdominal pain. W/u initiated. 1926 - CT abd/pelvis without worrisome findings, + degree of constipation. CBC good, CMP acceptable except for low K+ at 3.0. BNP mildly elevated at 282, CXR with mild CHF. Urine pending. Will admit for control of vomiting, give IV lasix, with potassium suppplementation. Discussed with Dr Hewitt, road freight conductor, will admit for Dr Marquez. [facility] Labs Reviewed 12/01/22 17:43 12/01/22 17:43 Laboratory: WBC 4.3 X10^3/uL (3.6-10.0) 12/01/22 17:43 RBC 4.78 X10^6/uL (3.5-5.4) 12/01/22 17:43 Hgb 13.4 g/dL (12.0-16.0) 12/01/22 17:43 Hct 40.7 % (36.0-47.0) 12/01/22 17:43 MCV 85.0 fL (80.0-100.0) 12/01/22 17:43 MCH 28.1 pg (27.0-34.0) 12/01/22 17:43 MCHC 33.0 g/dL (33.0-35.0) 12/01/22 17:43 RDW 14.7 % (11.6-16.5) 12/01/22 17:43 Plt Count 141 X10^3/uL (150.0-450.0) L 12/01/22 17:43 MPV 8.1 fL (7.4-11.0) 12/01/22 17:43 Neut % (Auto) 66.6 % (42.0-75.0) 12/01/22 17:43 Lymph % (Auto) 24.6 % (21.0-51.0) 12/01/22 17:43 [place] % (Auto) 6.4 % (0.0-13.0) 12/01/22 17:43 Eos % (Auto) 2.0 % (0.9-2.9) 12/01/22 17:43 Baso % (Auto) 0.4 % (0.2-1.0) 12/01/22 17:43 Neut # (Auto) 2.9 x10^3/uL (2.2-4.8) 12/01/22 17:43 Lymph # (Auto) 1.1 X10^3/uL (1.3-2.9) L 12/01/22 17:43 [place] # (Auto) 0.3 x10^3/uL (0.3-0.8) 12/01/22 17:43 Eos # (Auto) 0.1 x10^3/uL (0.0-0.2) 12/01/22 17:43 Baso # (Auto) 0.0 X10^3/uL (0.0-0.1) 12/01/22 17:43 Absolute Nucleated RBC 0.1 /100WBC 12/01/22 17:43 Sodium 145 mmol/L (136-145) 12/01/22 17:43 Corrected Sodium 146 mmol/L (136-145) H 12/01/22 17:43 Potassium 3.0 mmol/L (3.5-5.1) L 12/01/22 17:43 Chloride 108 mmol/L (98-107) H 12/01/22 17:43 Carbon Dioxide 31.0 mmol/L (21-32) 12/01/22 17:43 BUN 7 mg/dL (7-18) 12/01/22 17:43 Creatinine 0.91 mg/dL (0.55-1.02) 12/01/22 17:43 Est GFR (MDRD) Af Amer > 60 (>60) 12/01/22 17:43 Est GFR (MDRD) Non-Af > 60 (>60) 12/01/22 17:43 Glucose 128 mg/dL (65-99) H 12/01/22 17:43 Calcium 8.1 mg/dL (8.5-10.1) L 12/01/22 17:43 Corrected Calcium 9.0 mg/dL (8.5-10.1) 12/01/22 17:43 Total Bilirubin 0.30 mg/dL (0.2-1.0) 12/01/22 17:43 AST 31 Units/L (15-37) 12/01/22 17:43 ALT 31 Units/L (12-78) 12/01/22 17:43 Alkaline Phosphatase 57 Units/L (46-116) 12/01/22 17:43 B-Natriuretic Peptide 282 pg/mL (0-79) H 12/01/22 17:43 Total Protein 6.3 g/dL (6.4-8.2) L 12/01/22 17:43 Albumin 2.9 g/dL (3.4-5.0) L 12/01/22 17:43 Globulin 3.4 g/dL (2.5-4.5) 12/01/22 17:43 Albumin/Globulin Ratio 0.9 Ratio (1.1-2.1) L 12/01/22 17:43 Lipase 57 Units/L (73-393) L 12/01/22 17:43 Opioid Opioid Risk Tool Age (Jose box if 16-45): No History of Preadolescent Sexual Abuse: No Total: 0 Total Score Risk Category: Low Risk Copyright: Pierre CASTRO predicting aberrant behaviors Discharge Plan Diagnosis Discharge Problem: Vomiting, CHF (congestive heart failure), Hypokalemia Discharge Plan Patient Disposition: ADMITTED INPATIENT Condition: Stable Orders to Discharge Patient Discharge Orders: Transfer (Routine); Ordered 12/01/22 Ordered By: Mason Raygoza
[2022-12-01] MEDS ORDERED: ZOFRAN INJ 4 MG VIAL IVP ONE ×2 (17:33→18:01)
[2022-12-01] MEDS ORDERED: NS 500 ML IV 500 ML IV ONE ×2 (17:33→17:35)
[2022-12-01] MEDS ORDERED: ZOFRAN INJ 4 MG VIAL ONE ×2 (17:35→18:03)
[2022-12-01 17:53] LABS: BASOPHILS % (AUTO) 0.4 % (0.2-1.0); EOSINOPHILS # (AUTO) 0.1 x10^3/uL (0.0-0.2); HEMATOCRIT 40.7 % (36.0-47.0); HEMOGLOBIN 13.4 g/dL (12.0-16.0); LYMPHOCYTES # (AUTO) 1.1 X10^3/uL (1.3-2.9); LYMPHOCYTES % (AUTO) 24.6 % (21.0-51.0); MEAN CORPUSCULAR HEMOGLOBIN 28.1 pg (27.0-34.0); MEAN PLATELET VOLUME 8.1 fL (7.4-11.0); MONOCYTES # (AUTO) 0.3 x10^3/uL (0.3-0.8); MONOCYTES % (AUTO) 6.4 % (0.0-13.0); NEUTROPHILS # (AUTO) 2.9 x10^3/uL (2.2-4.8); NEUTROPHILS % (AUTO) 66.6 % (42.0-75.0); PLATELET COUNT 141 X10^3/uL (150.0-450.0); RED BLOOD COUNT 4.78 X10^6/uL (3.5-5.4); RED CELL DISTRIBUTION WIDTH 14.7 % (11.6-16.5); WHITE BLOOD COUNT 4.3 X10^3/uL (3.6-10.0)
--- NOTE | 2022-12-01 17:53 | RAD ---
EXAM: CHEST X-RAYHISTORY: Cough.TECHNIQUE: AP CXR dated December 01, 2022 at 5:36 PM.COMPARISON: CXR dated November 29, 2022.FINDINGS:There is evidence for cardiomegaly. The pulmonary vascularity and interstitial markings are diffusely prominent, consistent with mild CHF or volume overload in the appropriate clinical setting; differential diagnosis includes (but is not limited to) mild bronchitis and interstitial pneumonia in the appropriate clinical setting.There is no gross focal lung consolidation, pleural effusion, or pneumothorax seen. The visualized bony structures are within normal limits.IMPRESSION:1. Findings consistent with mild CHF or volume overload in the appropriate clinical setting (with mild interval progression of congestive infiltrates compared with the previous exam); DDX includes (but is not limited to) mild bronchitis and interstitial pneumonia in the appropriate clinical setting.2. Recommend clinical correlation and appropriate follow-up CXR evaluation to ensure interval clearance as clinically warranted.3. Consider follow-up noncontrast chest CT for further characterization as clinically warranted.Electronically signed by: Kenneth Herman (Dec 01, 2022 17:51:32)
[2022-12-01] MEDS ORDERED: MORPHINE SULFATE INJ 4 MG IVP ONE (18:01)
[2022-12-01] MEDS ORDERED: MORPHINE SULFATE INJ 4 MG ONE (18:03)
[2022-12-01 18:04] LABS: ALANINE AMINOTRANSFERASE 31 Units/L (12-78); ALBUMIN 2.9 g/dL (3.4-5.0); ALKALINE PHOSPHATASE 57 Units/L (46-116); ASPARTATE AMINO TRANSFERASE 31 Units/L (15-37); BLOOD UREA NITROGEN 7 mg/dL (7-18); CALCIUM 8.1 mg/dL (8.5-10.1); CHLORIDE 108 mmol/L (98-107); COR NA(FOR HYPERGLY) 146 mmol/L (136-145); CREATININE 0.91 mg/dL (0.55-1.02); GLUCOSE 128 mg/dL (65-99); LIPASE 57 Units/L (73-393); SODIUM 145 mmol/L (136-145); TOTAL PROTEIN 6.3 g/dL (6.4-8.2); eGFR NON BLACK RACES > 60 (>60)
--- NOTE | 2022-12-01 18:55 | CT ---
EXAM: CT ABDOMEN AND PELVIS WITHOUT INTRAVENOUS CONTRASTHISTORY: Right lower quadrant abdominal pain.TECHNIQUE: Spiral axial CT images are obtained through the abdomen and pelvis without the administration of intravenous contrast. Additional coronal and sagittal reformatted images are reconstructed.DOSIMETRY: Total DLP 705.1 mGycm; CTDI 12.58 mGyCOMPARISON: CT abdomen pelvis dated November 25, 2022.FINDINGS:GASTROINTESTINAL TRACT: There is a stable small collapsed hiatal hernia. There is no evidence for bowel herniation, bowel obstruction, appendicitis, colitis or diverticulitis. Abundant fecal material is seen within the large bowel loops; nonspecific finding; rule out constipation.GENITOURINARY SYSTEM: The kidneys are unremarkable. There is no ureteral calculus or stigmata of obstructive uropathy. The urinary bladder is grossly unremarkable for a non-dedicated exam.CT ABDOMEN: Severe aortoiliac atherosclerotic disease, without aneurysm formation. The liver, spleen, pancreas, adrenal glands, gallbladder, and inferior vena cava are within normal limits for a noncontrast CT scan. There is no intra-abdominal or retroperitoneal lymphadenopathy, free fluid, or free air seen. No abdominal herniation is noted.CT PELVIS: No pelvic sidewall or inguinal lymphadenopathy is seen. No inguinal herniation is noted. No free fluid or free air is seen. Status post hysterectomy.BONES AND JOINTS: Severe multilevel DDD is seen in the distal thoracic and distal lumbar spine. L3/4: Severe DDD marked by severe disc space narrowing, endplate sclerosis, vacuum disc phenomenon, and chronic appearing anterior and posterior disc bulge/marginal osteophyte complexes, without discernible neural impingement. L4/5: Posterior disc bulge +/- HNP (projecting 6.4 mm AP) with anterior thecal sac and lateral recess encroachment and potential for neural impingement.LUNG BASES: The lung bases are clear. There is severe coronary atherosclerosis (especially LAD). There is cardiomegaly with four-chamber enlargement. A stable small pericardial effusion is seen (up to 1.2 cm thick posteriorly).IMPRESSION:1. No gross acute abnormality seen.2. No evidence for renal stone disease or obstructive uropathy.3. Stable small collapsed hiatal hernia.4. No evidence for acute appendicitis, bowel herniation/obstruction, colitis or diverticulitis seen.5. Abundant fecal material is seen within the large bowel loops; nonspecific finding; rule out constipation.6. No free fluid, free air, mass lesions, or lymphadenopathy seen.7. L3/4: Severe DDD marked by severe disc space narrowing, endplate sclerosis, vacuum disc phenomenon, and chronic appearing anterior and posterior disc bulge/marginal osteophyte complexes, without discernible neural impingement.8. L4/5: Posterior disc bulge +/- HNP (projecting 6.4 mm AP) with anterior thecal sac and lateral recess encroachment and potential for neural impingement.Electronically signed by: Kenneth Herman (Dec 01, 2022 18:54:26)
[2022-12-01 19:39] LABS: BILIRUBIN,URINE NEGATIVE (NEGATIVE); BLOOD/HEMOGLOBIN,URINE NEGATIVE (NEGATIVE); GLUCOSE, URINE 4+ (NEGATIVE); KETONES,URINE 1+ (NEGATIVE); LEUKOCYTE ESTERASE ,URINE NEGATIVE (NEGATIVE); NITRITES,URINE NEGATIVE (NEGATIVE); PROTEIN,URINE NEGATIVE (NEGATIVE); UROBILINOGEN,URINE 2+ (NORMAL)
[2022-12-01 19:48] LABS: APPEARANCE,URINE SLIGHTLY HAZY (CLEAR); COLOR,URINE YELLOW (YELLOW)
[2022-12-01 19:49] LABS: BACTERIA,URINE TRACE /HPF (NEGATIVE); RBC,URINE NONE SEEN /HPF (0-3); SQUAMOUS EPITHELIAL CELL,UR FEW /HPF (NEGATIVE)
[2022-12-01] MEDS ORDERED: CONSULT PHARMACY - POTASSIUM & MAGNESIUM XX SCH (20:31)
[2022-12-01] MEDS ORDERED: K-RIDER 10 MEQ/NS 100 ML 10 MEQ/100 ML BAG IV SCH (20:31)
[2022-12-01] MEDS ORDERED: ZOFRAN INJ 4 MG VIAL IVP PRN (20:31)
[2022-12-01] MEDS: K-RIDER 10 MEQ/NS 100 ML 10 MEQ/100 ML BAG IV SCH (22:11)
[2022-12-01] MEDS ORDERED: NS 250 ML IV 250 ML IV ONE (22:15)
[2022-12-02] MEDS: K-RIDER 10 MEQ/NS 100 ML 10 MEQ/100 ML BAG IV SCH ×5 (00:43→03:52)
[2022-12-02] MEDS: TYLENOL 325 MG TAB PO PRN (04:42)
[2022-12-02 05:04] LABS: BASOPHILS % (AUTO) 0.5 % (0.2-1.0); EOSINOPHILS # (AUTO) 0.1 x10^3/uL (0.0-0.2); HEMATOCRIT 37.7 % (36.0-47.0); HEMOGLOBIN 12.7 g/dL (12.0-16.0); LYMPHOCYTES # (AUTO) 1.7 X10^3/uL (1.3-2.9); LYMPHOCYTES % (AUTO) 40.8 % (21.0-51.0); MEAN CORPUSCULAR HEMOGLOBIN 28.6 pg (27.0-34.0); MEAN CORPUSCULAR HGB CONC 33.7 g/dL (33.0-35.0); MEAN PLATELET VOLUME 8.2 fL (7.4-11.0); MONOCYTES # (AUTO) 0.3 x10^3/uL (0.3-0.8); MONOCYTES % (AUTO) 7.9 % (0.0-13.0); NEUTROPHILS # (AUTO) 1.9 x10^3/uL (2.2-4.8); NEUTROPHILS % (AUTO) 47.8 % (42.0-75.0); PLATELET COUNT 145 X10^3/uL (150.0-450.0); RED BLOOD COUNT 4.43 X10^6/uL (3.5-5.4); RED CELL DISTRIBUTION WIDTH 14.8 % (11.6-16.5); WHITE BLOOD COUNT 4.1 X10^3/uL (3.6-10.0)
[2022-12-02 05:16] LABS: ALANINE AMINOTRANSFERASE 32 Units/L (12-78); ALBUMIN 2.8 g/dL (3.4-5.0); ALKALINE PHOSPHATASE 54 Units/L (46-116); ASPARTATE AMINO TRANSFERASE 31 Units/L (15-37); BLOOD UREA NITROGEN 6 mg/dL (7-18); CARBON DIOXIDE 27.3 mmol/L (21-32); CHLORIDE 108 mmol/L (98-107); CREATININE 0.82 mg/dL (0.55-1.02); GLUCOSE 77 mg/dL (65-99); POTASSIUM 3.6 mmol/L (3.5-5.1); SODIUM 143 mmol/L (136-145); TOTAL PROTEIN 6.1 g/dL (6.4-8.2); eGFR NON BLACK RACES > 60 (>60)
[2022-12-02] MEDS ORDERED: CONSULT PHARMACY - POTASSIUM & MAGNESIUM XX SCH ×2 (06:00→07:00)
[2022-12-02] MEDS ORDERED: NORCO 10/325 TAB PO PRN (08:37)
[2022-12-02] MEDS ORDERED: PATIENT'S HOME MEDICATION (Fluticasone-Umeclidin-Vilanter [Trelegy Ellipta] 200-62.5-25 mc IN SCH (08:45)
[2022-12-02] MEDS ORDERED: [UNRECOGNIZED DRUG - OTHER] IN SCH (09:00)
[2022-12-02] MEDS ORDERED: FLUTICASONE PROPIONATE IN SCH ×2 (09:00)
[2022-12-02] MEDS ORDERED: PROTONIX INJ 40 MG VIAL IVP SCH (09:00)
[2022-12-02] MEDS ORDERED: LASIX IVP SCH ×2 (09:00)
[2022-12-02] MEDS ORDERED: LEXAPRO ONE (09:56)
[2022-12-02] MEDS: ASPIRIN EC 81 MG PO SCH (10:00)
[2022-12-02] MEDS: PLAVIX PO SCH (10:00)
[2022-12-02] MEDS: ENTRESTO 24/26 MG TABLET PO SCH ×2 (10:00→20:42)
[2022-12-02] MEDS: TOPAMAX TAB 100 MG PO SCH ×2 (10:00→20:42)
[2022-12-02] MEDS: LEXAPRO PO SCH (10:00)
[2022-12-02] MEDS: RANEXA PO SCH ×2 (10:00→22:04)
[2022-12-02] MEDS ORDERED: K-RIDER 10 MEQ/NS 100 ML 10 MEQ/100 ML BAG IV ONE (10:00)
[2022-12-02] MEDS: PROTONIX TAB 40 MG PO SCH (10:00)
[2022-12-02] MEDS: COLACE CAP 100 MG PO SCH (10:24)
[2022-12-02] MEDS: LOVENOX INJ 40 MG SYR SC SCH (10:25)
[2022-12-02] MEDS: LASIX IVP SCH (10:26)
[2022-12-02] MEDS: PHENERGAN INJ 25 MG IM PRN ×2 (10:27→20:44)
[2022-12-02] MEDS: COREG TAB 6.25 MG PO SCH ×2 (11:07→20:55)
[2022-12-02] MEDS: FARXIGA PO SCH (11:07)
[2022-12-02] MEDS: PULMICORT NEB TX 0.5 MG NEB SCH ×2 (13:56→20:20)
[2022-12-02] MEDS: PROVENTIL NEB TX 0.083% 2.5MG/ 3ML NEB SCH ×4 (13:56→20:20)
[2022-12-03 04:01] VITALS: TEMP 98.4
[2022-12-03] MEDS: TYLENOL 325 MG TAB PO PRN (04:16)
[2022-12-03 06:40] LABS: BASOPHILS % (AUTO) 0.3 % (0.2-1.0); EOSINOPHILS # (AUTO) 0.2 x10^3/uL (0.0-0.2); EOSINOPHILS % (AUTO) 5.9 % (0.9-2.9); HEMATOCRIT 39.1 % (36.0-47.0); HEMOGLOBIN 13.2 g/dL (12.0-16.0); LYMPHOCYTES # (AUTO) 1.8 X10^3/uL (1.3-2.9); LYMPHOCYTES % (AUTO) 44.8 % (21.0-51.0); MEAN CORPUSCULAR HEMOGLOBIN 28.6 pg (27.0-34.0); MEAN CORPUSCULAR HGB CONC 33.7 g/dL (33.0-35.0); MEAN CORPUSCULAR VOLUME 84.8 fL (80.0-100.0); MEAN PLATELET VOLUME 7.8 fL (7.4-11.0); MONOCYTES # (AUTO) 0.3 x10^3/uL (0.3-0.8); NEUTROPHILS # (AUTO) 1.6 x10^3/uL (2.2-4.8); PLATELET COUNT 157 X10^3/uL (150.0-450.0); RED BLOOD COUNT 4.61 X10^6/uL (3.5-5.4); RED CELL DISTRIBUTION WIDTH 14.5 % (11.6-16.5); WHITE BLOOD COUNT 3.9 X10^3/uL (3.6-10.0)
[2022-12-03 06:50] LABS: ALANINE AMINOTRANSFERASE 37 Units/L (12-78); ALKALINE PHOSPHATASE 59 Units/L (46-116); ASPARTATE AMINO TRANSFERASE 37 Units/L (15-37); BLOOD UREA NITROGEN 9 mg/dL (7-18); CALCIUM 8.2 mg/dL (8.5-10.1); CARBON DIOXIDE 30.4 mmol/L (21-32); CHLORIDE 107 mmol/L (98-107); GLUCOSE 104 mg/dL (65-99); POTASSIUM 3.6 mmol/L (3.5-5.1); SODIUM 144 mmol/L (136-145); TOTAL PROTEIN 6.5 g/dL (6.4-8.2); eGFR NON BLACK RACES 57 (>60)
[2022-12-03] MEDS ORDERED: LEXAPRO ONE (07:56)
[2022-12-03] MEDS ORDERED: CONSULT PHARMACY - POTASSIUM & MAGNESIUM XX SCH (08:00)
[2022-12-03] MEDS: LOVENOX INJ 40 MG SYR SC SCH (08:37)
[2022-12-03] MEDS: LASIX IVP SCH (08:37)
[2022-12-03] MEDS: COLACE CAP 100 MG PO SCH (08:38)
[2022-12-03] MEDS: PLAVIX PO SCH (08:38)
[2022-12-03] MEDS: RANEXA PO SCH (08:39)
[2022-12-03] MEDS: ENTRESTO 24/26 MG TABLET PO SCH (08:39)
[2022-12-03] MEDS: ASPIRIN EC 81 MG PO SCH (08:39)
[2022-12-03] MEDS: PROTONIX TAB 40 MG PO SCH (08:39)
[2022-12-03] MEDS: COREG TAB 6.25 MG PO SCH (08:39)
[2022-12-03] MEDS: TOPAMAX TAB 100 MG PO SCH (08:40)
[2022-12-03] MEDS: LEXAPRO PO SCH (08:41)
[2022-12-03] MEDS: PULMICORT NEB TX 0.5 MG NEB SCH (08:49)
[2022-12-03] MEDS: PROVENTIL NEB TX 0.083% 2.5MG/ 3ML NEB SCH (08:50)
[2022-12-03] MEDS ORDERED: K-DUR TAB 20 MEQ PO SCH (09:00)
[2022-12-03] MEDS ORDERED: MICRO K EXTEN CAP 10 MEQ PO SCH (09:00)
[2022-12-03 09:23] VITALS: O2SAT 98
[2022-12-03 09:30] VITALS: BP 136/63; PULSE 51; RESP 18
[2022-12-03] MEDS: FARXIGA PO SCH (09:33)
== END 2022-12-03 11:05 | disposition home health service (06) ==
LOC: ER 17:10 → MED/SURG 17:10
PROVIDERS: ADMIT Internal Medicine; ATTEND Obstetrics & Gynecology Obstetrics
DX: M51.36 Other intervertebral disc degeneration, lumbar region; E78.2 Mixed hyperlipidemia; R10.84 Generalized abdominal pain; Z59.86 Financial insecurity; R11.2 Nausea with vomiting, unspecified; Z91.190 Patient's noncompliance with other medical treatment and regimen due to financial hardship; R06.02 Shortness of breath; E11.65 Type 2 diabetes mellitus with hyperglycemia; K21.9 Gastro-esophageal reflux disease without esophagitis; E87.6 Hypokalemia; I11.0 Hypertensive heart disease with heart failure; I25.10 Atherosclerotic heart disease of native coronary artery without angina pectoris; I50.9 Heart failure, unspecified; J44.9 Chronic obstructive pulmonary disease, unspecified; H81.10 Benign paroxysmal vertigo, unspecified ear; U07.1 COVID-19; Z73.89 Other problems related to life management difficulty

== ENCOUNTER 2025-02-22 14:41 | Observation (INO) ==
--- NOTE | 2025-02-22 14:51 | EKG ---
Test Reason : AMS Blood Pressure : */* mmHG Vent. Rate : 98 BPM Atrial Rate : 98 BPM P-R Int : 198 ms QRS Dur : 86 ms QT Int : 362 ms P-R-T Axes : 87 70 16 degrees QTc Int : 462 ms Sinus rhythm with premature atrial complexes Abnormal ECG When compared with ECG of 07-AUG-2024 12:13, Nonspecific T wave abnormality, worse in Inferior leads Confirmed by Parker Werner MD ([id number]) on 02/22/2025 4:14:16 PM Referred By: Confirmed By: Parker Werner MD
[2025-02-22 14:57] LABS: ABG BASE EXCESS 6.3 mmol/L (-2.0-2.0); ABG OXYGEN SATURATION 93.0 % (90-100); ABG PCO2 42.0 mmHg (35.0-45.0); ABG PH 7.470 (7.35-7.45); ABG PO2 62.0 mmHg (80.0-100.0)
[2025-02-22 14:58] LABS: ABG ALLEN TEST POS; ABG HCO3 30.6 mmol/L (22-26)
[2025-02-22 15:06] VITALS: BMI 28.8
[2025-02-22 15:25] LABS: INR 1.35 (0.8-1.3)
[2025-02-22 15:27] LABS: MEAN PLATELET VOLUME 7.8 fL (7.4-11.0); RED CELL DISTRIBUTION WIDTH 16.4 % (11.6-16.5)
[2025-02-22 15:49] LABS: COR CA(FOR HYPOALB) 9.2 mg/dL (8.5-10.1); CREATININE 0.88 mg/dL (0.55-1.02); eGFR NON BLACK RACES > 60 (>60)
[2025-02-22] MEDS: K-DUR TAB 20 MEQ PO ONE (15:56)
--- NOTE | 2025-02-22 16:02 | CT ---
EXAM: BRAIN W/O CON HISTORY: AMS; COMPARISON: September 2022 TECHNIQUE: Multiple axial images of the brain were obtained from the skull base to the vertex without administration of IV contrast. Dose reduction techniques including Automated Exposure Control (AEC) and adjustment of mA and kV were utilized. FINDINGS: No acute intraparenchymal hemorrhage or mass can be identified. No extra-axial fluid collections are seen. There are stable small-vessel ischemic changes however there is a new low-attenuation area in the right parieto-occipital lobe which is age indeterminate. This could represent a subacute infarct and would be better evaluated with follow-up MRI. Age-appropriate atrophic changes are seen. The ventricular system is symmetric and nondilated. The extracranial structures appear unremarkable. IMPRESSION: 1. New large low-attenuation area in the right parieto-occipital lobe which is age indeterminate. Correlation with MRI may be of benefit improved characterization this could represent a subacute infarct. THIS IS AN ELECTRONICALLY VERIFIED FINAL REPORT 02/22/2025 3:59 PM - Electronically signed by Edgar Stubbs MD
--- NOTE | 2025-02-22 16:21 | DR.AMS ---
HPI Time Seen Time Seen by Provider: 02/22/25 14:51 PCP Primary Care Physician: Dr. Danielson Complaint Cheif Complaint Doctors Comments: Patient is a hospice patient who states she is DNR. She apparently was taking more medication that she was supposed to in the hospice and finish out her medications about soon other she was supposed to. They are also having some complications as far as her having a place to live since she left her house that she was staying at and it sounds like she was upset with the rigging helper due to them not giving her more medication. Patient is alert and oriented at this time stating she wants to stay at hospice. Patient denies any symptoms at this time but we have been informed by hospice and PCPs office that she has had some episodes of altered mental status. Chief Complaint:: Pt arrived to ED via wheelchair with Dr. Danielson's nurse. Per the nurse pt is currently under the service of [facility]. Pt apparently took 14 days of her pain medication in 4 days and hospice quit giving her pain medication 2 weeks ago. Pt presented today to Dr. Danielson's office with AMS. Pt and her son left the friend's house they had been staying at this morning and don't have anywhere else to go. Pt's son told Dr. Danielson that pt had been getting up around 2am every day and repeatedly runs her walker into the glass door and can't be redirected. Pt is currently alert and oriented to person and place. Pt states that yesterday she started having nausea and vomiting. COVID-19 Coronavirus risk:travel/contact w/high risk person: No Has patient experienced Coronavirus symptoms: No Source History Provided: Other Mode of Arrival Mode of Arrival: Wheelchair Timing Onset of Chief Complaint: 02/21/25 PMH PMH Past Medical History: Yes Past Medical History: Anemia, Anxiety, Asthma, CHF, COPD, Coronary Artery Disease, CVA, Depression, Dyslipidemia, Hypertension and IN Past Surgical History: Yes Surgical History: Hysterectomy and Ortho Surgery Family History History of Family Medical Conditions: No Family Medical History: Diabetes Mellitus, Cancer, [place], Coronary Artery Disease, Heart Failure and Hypertension Social History Does patient currently use any type of tobacco product: No Have you used tobacco products in the last 12 months: No Type of Tobacco Use: None Does any household member use tobacco: No Alcohol Use: None Do you use any recreational Drugs:: No Lives With: Family Lives Where: Home Travel Risk Coronavirus risk:travel/contact w/high risk person: No Has patient experienced Coronavirus symptoms: No Infectious screening In the last 2 months have you had wt loss of >10#?: NO Have you had fever, night sweats or hemotysis?: No Have you traveled outside the country in the last 6 months?: No Isolation: Standard ROS Review of Systems Constitutional: No Symptoms Reported Eyes: No Symptoms Reported ENTM: No Symptoms Reported Respiratoy: No Symptoms Reported Cardiovascular: No Symptoms Reported Gastrointestinal/Abdominal: No Symptoms Reported Genitourinary: No Symptoms Reported Neurological: No Symptoms Reported Musculoskeletal: No Symptoms Reported Integumentary: No Symptoms Reported Hematologic/Lymphatic: No Symptoms Reported Endocrine: No Symptoms Reported Psychiatric: No Symptoms Reported All Other Systems: Reviewed and Negative PE Vitals Vital Signs: Temp Pulse Resp BP Pulse Ox O2 Del Method 02/22/25 17:30 126 H 42 H 02/22/25 17:15 101 H 21 95 02/22/25 17:00 139/84 02/22/25 17:00 114 H 28 H 96 02/22/25 16:45 102 H 23 91 L 02/22/25 16:44 173/91 02/22/25 16:30 97 H 20 02/22/25 16:15 93 H 22 02/22/25 16:00 105 H 23 02/22/25 15:45 101 H 21 02/22/25 15:38 95 H 24 02/22/25 15:15 99 H 25 H 96 02/22/25 15:01 108 H 24 91 L 02/22/25 15:01 135/71 02/22/25 15:00 103 H 22 96 02/22/25 14:58 98.1 F 114 H 24 136/97 98 Room Air 02/22/25 14:46 105 H 91 L General Limitations: No Limitations General Appearance: Alert Head Head Exam: Normal Inspection; negative Atraumatic or Normocephalic Eyes Eye exam: Normal Appearance, PERRL and EOMI Neck Neck Exam: Normal Inspection Chest Chest Inspection: Normal Inspection Respiratory Respiratory Exam: Other (Crackles bilateral) Cardiovascular Cardiovascular Exam: Regular Rate and Normal Rhythm Abdominal Exam Abdominal Exam: Normal Inspection, Normal Bowel Sounds and Soft Extremities Extremities Exam: Normal Capillary Refill; negative Edema Back Back Exam: Normal Inspection Neurological Neurological Exam: Alert, Oriented X3 and CN II-XII Intact Psychological Psychiatric Exam: Normal Affect and Normal Mood Skin Skin Exam: Warm, Dry, Intact, Normal Color and Other (Erythematous rash with satellite lesions.) COURSE Treatment Treatment: Discussed results of workup with patient. After extensive discussion with hospitalist and multiple family members/friends that had been willing to house her before they are unwilling to keep her other homes at this time. Patient states she is agreeable to admission to find her placement at this time. Patient has been discharged from hospice due to using recreational drugs while on controlled substances from them. Discussed possibility of stroke and patient does not wish to pursue treatment. Discussed elevated troponins and patient again does not wish to pursue treatment. She does have new A-fib and rate is being controlled with amiodarone. Some Lasix has been used for her CHF at this time. Potassium given to help correct hypokalemia. Nystatin applied due to yeast infection under pannus. Ultimately patient wants to stay DNR and in hospice and is agreeable to admission for placement. Patient does not want extensive measures or invasive measures at this time. Patient unsure if she wants to do MRI for follow-up on CT scan since she does not want to do anything about it if it is stroke. Patient states she will discuss with PCP tomorrow morning. Consultation Consultation Comments: Discussed case with Dr. Danielson and he is agreeable to admission. Critical Care Notes Total Time (mins): 57 Critical Diagnosis: New onset A-fib with RVR. CHF exacerbation, possible ischemic stroke. Critical Interventions: Patient started on amiodarone. Eliquis being started. Lasix administered. Potassium replaced. Time spent ordering workup and reviewing and interpreting workup, educating patient, examining patient and making arrangements for admission as well as looking for placement and coordinating with hospice. ROR Labs Reviewed Laboratory Results Reviewed?: Yes 02/22/25 14:58 02/22/25 14:58 Laboratory: WBC 7.4 X10^3/uL (3.6-10.0) 02/22/25 14:58 RBC 5.31 X10^6/uL (3.5-5.4) 02/22/25 14:58 Hgb 14.7 g/dL (12.0-16.0) 02/22/25 14:58 Hct 44.5 % (36.0-47.0) 02/22/25 14:58 MCV 83.8 fL (80.0-100.0) 02/22/25 14:58 MCH 27.6 pg (27.0-34.0) 02/22/25 14:58 MCHC 32.9 g/dL (33.0-35.0) L 02/22/25 14:58 RDW 16.4 % (11.6-16.5) 02/22/25 14:58 Plt Count 169 X10^3/uL (150.0-450.0) 02/22/25 14:58 MPV 7.8 fL (7.4-11.0) 02/22/25 14:58 Neut % (Auto) 74.9 % (42.0-75.0) 02/22/25 14:58 Lymph % (Auto) 16.6 % (21.0-51.0) L 02/22/25 14:58 [place] % (Auto) 7.7 % (0.0-13.0) 02/22/25 14:58 Eos % (Auto) 0.1 % (0.9-2.9) L 02/22/25 14:58 Baso % (Auto) 0.7 % (0.2-1.0) 02/22/25 14:58 Neut # (Auto) 5.5 x10^3/uL (2.2-4.8) H 02/22/25 14:58 Lymph # (Auto) 1.2 X10^3/uL (1.3-2.9) L 02/22/25 14:58 [place] # (Auto) 0.6 x10^3/uL (0.3-0.8) 02/22/25 14:58 Eos # (Auto) 0.0 x10^3/uL (0.0-0.2) 02/22/25 14:58 Baso # (Auto) 0.0 X10^3/uL (0.0-0.1) 02/22/25 14:58 Absolute Nucleated RBC 0.2 /100WBC 02/22/25 14:58 PT 16.8 SECONDS (11.8-14.3) 02/22/25 14:58 INR Target Range - 02/22/25 14:58 INR 1.35 (0.8-1.3) H 02/22/25 14:58 APTT 30.6 SECONDS (22.9-36.5) 02/22/25 14:58 PTT Comment - 02/22/25 14:58 Sample Site Rrad 02/22/25 14:55 ABG pH 7.470 (7.35-7.45) H 02/22/25 14:55 ABG pCO2 42.0 mmHg (35.0-45.0) 02/22/25 14:55 ABG pO2 62.0 mmHg (80.0-100.0) L 02/22/25 14:55 ABG HCO3 30.6 mmol/L (22-26) H* 02/22/25 14:55 ABG O2 Saturation 93.0 % (90-100) 02/22/25 14:55 ABG Base Excess 6.3 mmol/L (-2.0-2.0) H 02/22/25 14:55 Calixto Test Pos 02/22/25 14:55 A-a Gradient 35.0 mmHg 02/22/25 14:55 FiO2 21.0 02/22/25 14:55 Blood Gas Comments Juan well ms 02/22/25 14:55 Sodium 139 mmol/L (136-145) 02/22/25 14:58 Corrected Sodium TNP 02/22/25 14:58 Potassium 2.5 mmol/L (3.5-5.1) L* 02/22/25 14:58 Chloride 98 mmol/L (98-107) 02/22/25 14:58 Carbon Dioxide 29.5 mmol/L (21-32) 02/22/25 14:58 BUN 13 mg/dL (7-18) 02/22/25 14:58 Creatinine 0.88 mg/dL (0.55-1.02) 02/22/25 14:58 Est GFR (MDRD) Af Amer > 60 (>60) 02/22/25 14:58 Est GFR (MDRD) Non-Af > 60 (>60) 02/22/25 14:58 Glucose 108 mg/dL (65-99) H 02/22/25 14:58 Lactic Acid 1.6 mmol/L (0.4-2.0) 02/22/25 14:58 Calcium 8.6 mg/dL (8.5-10.1) 02/22/25 14:58 Corrected Calcium 9.2 mg/dL (8.5-10.1) 02/22/25 14:58 Total Bilirubin 1.70 mg/dL (0.2-1.0) H 02/22/25 14:58 AST 24 Units/L (15-37) 02/22/25 14:58 ALT 12 Units/L (12-78) 02/22/25 14:58 Alkaline Phosphatase 78 Units/L (46-116) 02/22/25 14:58 Creatine Kinase 154 Units/L (26-192) 02/22/25 14:58 Troponin I High Sens 89.3 ng/L (4.0-60.0) H* 02/22/25 14:58 B-Natriuretic Peptide 419 pg/mL (0-79) H 02/22/25 14:58 Total Protein 6.9 g/dL (6.4-8.2) 02/22/25 14:58 Albumin 3.3 g/dL (3.4-5.0) L 02/22/25 14:58 Globulin 3.6 g/dL (2.5-4.5) 02/22/25 14:58 Albumin/Globulin Ratio 0.9 Ratio (1.1-2.1) L 02/22/25 14:58 Specimen Type Catherized urine 02/22/25 16:45 Urine Color Dark yellow (YELLOW) 02/22/25 16:45 Urine Appearance Clear (CLEAR) 02/22/25 16:45 Urine pH 6.0 (5.0 - 8.0) 02/22/25 16:45 Ur Specific [place] 1.025 (1.000-1.030) 02/22/25 16:45 Urine Protein 2+ (NEGATIVE) 02/22/25 16:45 Urine Glucose (UA) 3+ (NEGATIVE) 02/22/25 16:45 Urine Ketones 3+ (NEGATIVE) 02/22/25 16:45 Urine Blood Negative (NEGATIVE) 02/22/25 16:45 Urine Nitrite Negative (NEGATIVE) 02/22/25 16:45 Urine Bilirubin 2+ (NEGATIVE) 02/22/25 16:45 Urine Urobilinogen 3+ (NORMAL) 02/22/25 16:45 Ur Leukocyte Esterase Negative (NEGATIVE) 02/22/25 16:45 Urine RBC 0-2 /HPF (0-3) 02/22/25 16:45 Urine WBC 0-2 /HPF (0-5) 02/22/25 16:45 Ur Squamous Epith Cells Many /HPF (NEGATIVE) 02/22/25 16:45 Urine Bacteria 1+ /HPF (NEGATIVE) 02/22/25 16:45 Urine Mucus Moderate /HPF (NEGATIVE) 02/22/25 16:45 Ur Culture Indicated? No/not indicated 02/22/25 16:45 Urine Opiates Screen Positive (NEG=<300) A 02/22/25 16:45 Urine Methadone Screen Negative (NEG=<300) 02/22/25 16:45 Ur Barbiturates Screen Negative (NEG=<200) 02/22/25 16:45 Ur Phencyclidine Scrn Negative (NEG=<25) 02/22/25 16:45 Ur Amphetamines Screen Negative (NEG=<1000) 02/22/25 16:45 U Benzodiazepines Scrn Negative (NEG=<200) 02/22/25 16:45 Urine Cocaine Screen Negative (NEG=<300) 02/22/25 16:45 U Marijuana (THC) Screen Positive (NEG=<50) A 02/22/25 16:45 Other Results Comments: Name: MARIA E CARTER [facility]#: [id number] : 1945 Sex: F Location: ER Order Number(s): [id number] Procedure(s):BRAIN CT W/O CON Ordering Physician: Tahir Sims Primary Care: JACKSON DANIELSON Service Date: 02/22/25 Service Time: 1446 EXAM: BRAIN W/O CON HISTORY: AMS; COMPARISON: September 2022 TECHNIQUE: Multiple axial images of the brain were obtained from the skull base to the vertex without administration of IV contrast. Dose reduction techniques including Automated Exposure Control (AEC) and adjustment of mA and kV were utilized. FINDINGS: No acute intraparenchymal hemorrhage or mass can be identified. No extra-axial fluid collections are seen. There are stable small-vessel ischemic changes however there is a new low-attenuation area in the right parieto-occipital lobe which is age indeterminate. This could represent a subacute infarct and would be better evaluated with follow-up MRI. Age-appropriate atrophic changes are seen. The ventricular system is symmetric and nondilated. The extracranial structures appear unremarkable. IMPRESSION: 1. New large low-attenuation area in the right parieto-occipital lobe which is age indeterminate. Correlation with MRI may be of benefit improved characterization this could represent a subacute infarct. THIS IS AN ELECTRONICALLY VERIFIED FINAL REPORT 02/22/2025 3:59 PM - Electronically signed by Edgar Stubbs MD EKG Rate: 113 Rhythm: Afib ST: Nonsp Opioid Opioid Risk Tool Age (Jose box if 16-45): No History of Preadolescent Sexual Abuse: No Total: 0 Total Score Risk Category: Low Risk Copyright: Jay predicting aberrant behaviors Discharge Plan Diagnosis Discharge Problem: Atrial fibrillation with RVR, Hypokalemia, Opioid abuse, Cannabis abuse, Candidiasis of skin CHF (congestive heart failure) Qualifiers: Heart failure type: combined systolic and diastolic Heart failure chronicity: a cute on chronic Qualified Code(s): I50.43 - Acute on chronic combined systolic (congestive) and diastolic (congestive) heart failure Discharge Plan Patient Disposition: 09 ADMITTED INPATIENT Condition: Stable Prescriptions: No Action fluticasone propionate 110 mcg/actuation Hfa Aerosol Inhaler 2 inh INHALATION DAILY ranolazine 500 mg Extend Release Granules,Packet 500 mg PO BID prednisone 10 mg tablet 10 mg PO QDAY Qty: 5 0RF furosemide 40 mg Tablet 40 - 80 mg PO DAILY PRN (Reason: Edema) Rx Instructions: TAKE ONE OR TWO TABLETS DAILY NEEDED FOR EDEMA. hydrocodone-acetaminophen 10-325 mg Tablet 1 tab PO BID PRN (Reason: Pain) ropinirole 2 mg Tablet 1 - 2 mg PO BID PRN (Reason: Pain) Rx Instructions: TAKE 1/2 TO 1 TABLET BID PRN LEG PAIN pantoprazole [Protonix] 40 mg tablet,delayed release (DR/EC) 40 mg PO DAILY carvedilol 3.125 mg Tablet 3.125 mg PO BID azelastine-fluticasone 137-50 mcg/spray Alvin,Non-Aerosol 1 ml INTRANASAL Q8H PRN dapagliflozin propanediol [Farxiga] 5 mg tablet 5 mg PO DAILY hydrocodone-acetaminophen 10-325 mg tablet 1 tab PO BID MDD 2 PRN (Reason: pain) Qty: 7 0RF Health Concerns: Post Hospitalization: new medications and changes needed to prevent readmission or further decline. Pt educated and given instructions on all concerns. Plan of Treatment: Continue with present treatment and follow up plan. Pt is to keep follow up appointment as instructed and take medications as ordered. Orders to Discharge Patient Discharge Orders: Transfer (Routine); Ordered 02/22/25 Ordered By: Tahir Sims Follow ups/Referrals Follow ups/Referrals: JACKSON DANIELSON [Primary Care Provider, MEDICAL] - 3 days Instructions Stand Alone Forms: Find Help Web Site, Post Hospital Follow Up Care Print Language: LIBYAN
[2025-02-22 17:05] LABS: BLOOD/HEMOGLOBIN,URINE NEGATIVE (NEGATIVE); LEUKOCYTE ESTERASE ,URINE NEGATIVE (NEGATIVE); NITRITES,URINE NEGATIVE (NEGATIVE)
[2025-02-22 17:07] LABS: APPEARANCE,URINE CLEAR (CLEAR)
--- NOTE | 2025-02-22 17:08 | EKG ---
Test Reason : afib on monitor Blood Pressure : */* mmHG Vent. Rate : 113 BPM Atrial Rate : * BPM P-R Int : * ms QRS Dur : 76 ms QT Int : 400 ms P-R-T Axes : * 89 184 degrees QTc Int : 548 ms Atrial fibrillation with rapid ventricular response Abnormal ECG When compared with ECG of 22-FEB-2025 14:49, Atrial fibrillation has replaced Sinus rhythm Confirmed by Parker Werner MD ([id number]) on 02/23/2025 7:19:49 AM Referred By: Confirmed By: Parker Werner MD
[2025-02-22] MEDS: LASIX IVP ONE (17:11)
[2025-02-22 17:17] LABS: SQUAMOUS EPITHELIAL CELL,UR MANY /HPF (NEGATIVE)
[2025-02-22] MEDS: NYSTATIN POWDER TOP ONE (18:05)
[2025-02-22] MEDS: NEXTERONE IV 150 MG PREMIX* 150 MG/100 ML BAG IV ONE ×2 (18:05→19:14)
[2025-02-22] MEDS: NEXTERONE IV 360 MG PREMIX* 360 MG/200 ML BAG IV PRN (18:25)
[2025-02-22] MEDS ORDERED: NEXTERONE IV 360 MG PREMIX* 360 MG/200 ML BAG IV PRN (19:11)
[2025-02-22] MEDS ORDERED: TYLENOL 325 MG TAB PO PRN (19:11)
[2025-02-22] MEDS ORDERED: [UNRECOGNIZED DRUG - REMARK] INTRANASAL PRN (19:11)
[2025-02-22] MEDS: NYSTATIN POWDER ONE (19:14)
[2025-02-22] MEDS: CONSULT PHARMACY - POTASSIUM & MAGNESIUM XX SCH (19:15)
[2025-02-22] MEDS: NEXTERONE IV 360 MG PREMIX* 360 MG/200 ML BAG IV ONE (19:15)
[2025-02-22] MEDS ORDERED: [UNRECOGNIZED DRUG - REMARK] ENOSTRIL PRN (19:43)
[2025-02-22] MEDS: MORPHINE SULFATE INJ 2 MG INJ IVP PRN (20:03)
[2025-02-22] MEDS: COREG TAB 3.125 MG PO SCH (20:12)
[2025-02-22] MEDS: NYSTATIN POWDER TOP SCH (20:12)
[2025-02-22] MEDS: PULMICORT NEB TX 0.5 MG NEB SCH (20:27)
[2025-02-22] MEDS: XOPENEX 1.25 MG/3 ML NEBULE NEB SCH (20:27)
[2025-02-22] MEDS: ATIVAN TAB 0.5 MG PO PRN (20:59)
[2025-02-22] MEDS: XOPENEX 1.25 MG/3 ML NEBULE NEB ONE (21:05)
[2025-02-22] MEDS: PULMICORT NEB TX 0.5 MG NEB ONE (21:05)
--- NOTE | 2025-02-22 23:00 | RAD ---
EXAM: CHEST, 1 VIEW HISTORY: chest pain; HTN, COPD, ASTHMA, DM, M COMPARISON: 08/07/2024 FINDINGS: The trachea is midline. The cardiac silhouette is moderately enlarged.. The lungs are clear without focal infiltrate or effusion. The bony thorax is unremarkable. IMPRESSION: Moderate cardiomegaly. No active cardiopulmonary disease THIS IS AN ELECTRONICALLY VERIFIED FINAL REPORT 02/22/2025 10:57 PM - Electronically signed by Dat Fong MD
[2025-02-23] MEDS ORDERED: NEXTERONE IV 360 MG PREMIX* 360 MG/200 ML BAG IV ONE (00:11)
[2025-02-23] MEDS: NEXTERONE IV 360 MG PREMIX* 360 MG/200 ML BAG IV PRN (00:28)
[2025-02-23 04:51] LABS: MEAN PLATELET VOLUME 7.8 fL (7.4-11.0); RED CELL DISTRIBUTION WIDTH 16.3 % (11.6-16.5)
[2025-02-23] MEDS: NORCO 5/325 MG TAB PO PRN (04:57)
[2025-02-23 05:00] LABS: COR CA(FOR HYPOALB) 8.9 mg/dL (8.5-10.1); CREATININE 0.78 mg/dL (0.55-1.02); eGFR NON BLACK RACES > 60 (>60)
[2025-02-23] MEDS: LOVENOX INJ 40 MG SYR SC SCH (08:16)
[2025-02-23] MEDS: PROTONIX TAB 40 MG PO SCH (08:17)
[2025-02-23] MEDS: K-DUR TAB 20 MEQ PO SCH ×2 (08:17→20:07)
[2025-02-23] MEDS: MAG-OX TAB PO SCH (08:18)
[2025-02-23] MEDS: LASIX IVP SCH (08:20)
[2025-02-23] MEDS ORDERED: [UNRECOGNIZED DRUG - OTHER] IN SCH (09:00)
[2025-02-23] MEDS ORDERED: FLUTICASONE PROPIONATE IN SCH (09:00)
[2025-02-23] MEDS: NS IV ONE (10:16)
[2025-02-23] MEDS: POTASSIUM CHLORIDE IV ONE (10:16)
[2025-02-23] MEDS: [UNRECOGNIZED DRUG - OTHER] IV ONE (10:16)
[2025-02-23] MEDS: REQUIP PO SCH (10:33)
[2025-02-23] MEDS: COREG TAB 3.125 MG PO ONE (10:33)
[2025-02-23] MEDS: XOPENEX 1.25 MG/3 ML NEBULE NEB SCH (12:35)
[2025-02-23] MEDS ORDERED: PATIENT'S HOME MEDICATION PO SCH (13:00)
--- NOTE | 2025-02-23 13:01 | EKG ---
Test Reason : chest pain Blood Pressure : */* mmHG Vent. Rate : 49 BPM Atrial Rate : 49 BPM P-R Int : 182 ms QRS Dur : 76 ms QT Int : 698 ms P-R-T Axes : 51 52 61 degrees QTc Int : 630 ms Sinus bradycardia with premature atrial complexes and premature ventricular complexes or fusion complexes Nonspecific ST abnormality Abnormal ECG When compared with ECG of 22-FEB-2025 16:55, Sinus rhythm has replaced Atrial fibrillation Vent. rate has decreased BY [address] no longer depressed in Lateral leads T wave inversion no longer evident in Inferior leads T wave inversion no longer evident in Lateral leads Confirmed by Parker Werner MD ([id number]) on 02/24/2025 7:29:28 AM Referred By: Confirmed By: Parker Werner MD
[2025-02-23] MEDS: ROBITUSSIN DM PO PRN (13:44)
[2025-02-23] MEDS: ROBITUSSIN DM ONE (13:50)
[2025-02-23 13:56] LABS: CREATININE 0.78 mg/dL (0.55-1.02); eGFR NON BLACK RACES > 60 (>60)
[2025-02-23] MEDS: CORDARONE TAB 200 MG PO SCH (17:59)
[2025-02-23] MEDS: CONSULT PHARMACY - POTASSIUM & MAGNESIUM XX SCH (19:12)
[2025-02-23] MEDS: MAGNESIUM SULFATE 1 GRAM/100 mL PREMIX 1 G/100 ML BAG IV SCH (19:12)
[2025-02-23] MEDS: COREG TAB 6.25 MG PO SCH (20:06)
[2025-02-23] MEDS: ENTRESTO 24/26 MG TABLET PO SCH (20:07)
[2025-02-23] MEDS: TUSSIONEX PENNKINETIC SUSP PO PRN (20:07)
[2025-02-23] MEDS: ULTRAM PO PRN (23:01)
[2025-02-24 04:39] LABS: RED CELL DISTRIBUTION WIDTH 16.4 % (11.6-16.5)
[2025-02-24 04:43] LABS: MEAN PLATELET VOLUME 8.0 fL (7.4-11.0)
[2025-02-24 04:53] LABS: COR CA(FOR HYPOALB) 8.7 mg/dL (8.5-10.1); CREATININE 0.62 mg/dL (0.55-1.02); eGFR NON BLACK RACES > 60 (>60)
[2025-02-24] MEDS ORDERED: CONSULT PHARMACY - POTASSIUM & MAGNESIUM XX SCH (07:00)
[2025-02-24 07:41] VITALS: RESP 22
[2025-02-24] MEDS ORDERED: PATIENT'S HOME MEDICATION PO SCH (09:00)
[2025-02-24] MEDS: LASIX IVP SCH (09:00)
[2025-02-24] MEDS: COREG TAB 6.25 MG PO ONE (09:14)
[2025-02-24] MEDS: POTASSIUM CHL 60 MEQ/NS 0.45% 500 ML *CMPD 60 MEQ/500 ML BAG IV ONE (09:37)
[2025-02-24] MEDS ORDERED: K-DUR TAB 20 MEQ PO SCH (11:00)
--- NOTE | 2025-02-24 11:42 | RAD ---
EXAM: ACUTE ABDOMEN SERI ES HISTORY: pt c/o diarrhea, checking for impaction; COMPARISON: No relevant prior studies available. TECHNIQUE: AP supine and upright abdominal radiographs with chest radiography, 3 images. FINDINGS: Gas and stool in non distended colon. Gas in scattered loops of non-distended small bowel. No gross free air. No abnormal calcifications. Patchy airspace opacities and prominent pulmonary vascular markings noted cardiomegaly. No pneumothorax. No pleural effusion. No acute osseous abnormality. IMPRESSION: Findings suggest heart failure exacerbation Nonobstructive bowel gas pattern THIS IS AN ELECTRONICALLY VERIFIED FINAL REPORT 02/24/2025 11:39 AM - Electronically signed by John Dowd MD
[2025-02-24 11:57] VITALS: BP 139/67; PULSE 51; O2SAT 100
[2025-02-24 12:20] VITALS: TEMP 97.6
[2025-02-24] MEDS: LINZESS PO ONE (12:40)
[2025-02-24] MEDS: COLACE CAP 100 MG PO ONE (12:41)
[2025-02-24] MEDS: VISTARIL PO PRN (13:41)
[2025-02-24] MEDS: VISTARIL PO ONE (13:49)
[2025-02-24] MEDS: K-DUR TAB 20 MEQ PO ONE (14:44)
[2025-02-24] MEDS ORDERED: COREG TAB 12.5 MG PO SCH (21:00)
== END 2025-02-24 15:05 | disposition home health service (06) ==
LOC: ER 14:41 → INTOOBSV 18:15 → ICU 18:15
PROVIDERS: ADMIT Obstetrics & Gynecology Obstetrics; ATTEND Obstetrics & Gynecology Obstetrics